=== PATIENT | male | born 1935 | race Caucasian/White ===

== ENCOUNTER 2017-11-21 09:10 | Inpatient (IN) ==
[~2017-11-21 09:10] MED LIST: Iohexol 350 MG/ML 100 ML Vial (for Cath Lab) IVCONTRAST ONE; Iohexol 350 MG/ML 50 ML Vial (for Cath Lab) IVCONTRAST ONE
[2017-11-21] MEDS ORDERED: Midazolam Inj 5 MG/ML 1 ML Vial ONE (10:54)
[2017-11-21] MEDS ORDERED: Midazolam Inj 5 MG/ML 1 ML Vial IV.PUSH PRN (10:58)
[2017-11-21] MEDS ORDERED: Lidocaine 2% Inj 50 ML Vial ONE (11:25)
[2017-11-21] MEDS ORDERED: Mupirocin 2% Nasal Oint Topical Syringe EACH NARE SCH (11:30)
[2017-11-21] MEDS ORDERED: Chlorhexidine Gluconate 2% 1 Pack (2 Cloths) TOPICAL SCH (11:30)
[2017-11-21] MEDS ORDERED: Aspirin 325 MG Tablet PO SCH (11:30)
[2017-11-21] MEDS ORDERED: Chlorhexidine Gluconate 2% 1 Pack (2 Cloths) TOPICAL ONE (11:34)
[2017-11-21] MEDS ORDERED: Metoprolol Tartrate 25 MG Tablet PO ONE (11:34)
[2017-11-21 11:50] LABS: Baso # (Auto) 0.1 th/mm3 (0.0-0.2); Baso % (Auto) 0.6 % (0.0-2.0); Eos # (Auto) 0.2 th/mm3 (0.0-0.4); Eos % (Auto) 1.3 % (0.0-4.0); Hematocrit 41.6 % (39.0-51.0); Hemoglobin 14.1 gm/dL (13.0-17.0); Lymph # (Auto) 1.4 th/mm3 (1.0-4.8); Lymph % (Auto) 12.7 % (9.0-44.0); Mean Corpuscular HGB Conc 33.8 % (32.0-36.0); Mean Corpuscular Volume 91.6 fL (80.0-100.0); Mean Platelet Volume 7.3 fL (7.0-11.0); Mono # (Auto) 1.2 th/mm3 (0.0-0.9); Mono % (Auto) 10.5 % (0.0-8.0); Neut # (Auto) 8.5 th/mm3 (1.8-7.7); Neut % (Auto) 74.9 % (16.0-70.0); Platelet Count 331 th/mm3 (150-450); Red Blood Count 4.55 mil/mm3 (4.50-5.90); White Blood Count 11.4 th/mm3 (4.0-11.0)
[2017-11-21] MEDS ORDERED: ceFAZolin 2 GM/NS 100 ML IV; Q8H IV.SIG SCH ×2 (12:00)
[2017-11-21] MEDS ORDERED: Sodium Chlor 0.9% Inj 500 ML IV.SIG SCH (12:00)
[2017-11-21 12:03] LABS: Activated Partial Thrombo Time 26.2 sec (24.3-30.1); INR 1.1 Ratio; Prothrombin Time 11.2 sec (9.8-11.6)
[2017-11-21 12:06] LABS: Calcium 9.1 mg/dL (8.5-10.1); Carbon Dioxide 31.6 meq/L (21.0-32.0)
[2017-11-21 13:14] LABS: Eosinophils 4 % (0-4); Lymphocytes 6 % (9-44); Monocytes 10 % (0-8); Myelocytes 1 % (0-0); Platelet Estimate Normal (Normal); Platelet Morphology Normal (Normal)
[2017-11-21] MEDS ORDERED: Protamine Sulfate Inj 50 MG/5 ML Vial ONE (13:36)
[2017-11-21] MEDS ORDERED: Heparin 10,000 UNITS/10 ML Vial (for IV use) ONE (13:36)
--- NOTE | 2017-11-21 13:38 | P.PCN ---
Date of procedure: 11/21/17 Pre-op diagnosis: Severe aortic stenosis Procedure: Procedure: Arterial Line Placement Right radial arterial line Diagnosis: Severe aortic stenosis Indications: Beat to beat hemogenic monitoring for transcatheter aortic valve replacement Consent: Obtained from the patient Description of the Procedure: The right wrist was prepped and draped sterilely. 1% lidocaine was used for local anesthesia. Direct ultrasound guidance, the radial artery was located and a needle was advanced into the artery. The vascular anatomy of the right wrist was normal. A 20 gauge, 12 cm catheter was advanced into the artery using a modified Seldinger technique. The catheter was sutured to the skin and a sterile dressing was applied. The catheter was connected to a pressure transducer and an arterial waveform was noted. There were no immediate complications noted. There was minimal EBL. I personally performed the procedure.
--- NOTE | 2017-11-21 13:39 | P.PCN ---
Date of procedure: 11/21/17 Pre-op diagnosis: Severe aortic stenosis Procedure: Central Line Procedure Note Right IJ 6 Tristanian 10 cm introducer sheath Diagnosis: Severe aortic stenosis Indications: Need for highly potent vasoactive substances for transcatheter aortic valve replacement Consent: Obtained from the patient Anesthesia: Versed 2 mg IV, 2% lidocaine locally Description of the Procedure: The patient was placed in the supine, mild- Trendelenburg position. The area was prepped and draped sterilely. A 19g needle was inserted under negative pressure aspiration and dark venous blood was obtained. A guidewire was inserted easily without resistance. A small incision was made using a #11 blade. Using a modified Seldinger technique, the dilator and 6 Tristanian catheter were advanced over the guidewire without resistance. All ports were aspirated and flushed, and had brisk blood return. The line was secured at the skin using 2-0 silk interrupted sutures. Silk was used instead of a non-suture stat lock device due to the configuration of the introducer sheath. A Biopatch and Transparent sterile dressing were applied. There were no immediate complications noted. There was minimal EBL. The patient tolerated the procedure well. Ultrasound Guidance: Ultrasound guidance was used to identify the right internal jugular vein. The vascular anatomy of the right anterior neck was normal. The vessel was cannulated under direct, real-time ultrasound visualization. After placement of the guidewire, confirmation of the guidewire in the lumen of the vessel was made using ultrasound visualization, before dilation of the tract. A Chest x-ray has been ordered. I personally performed the procedure.
--- NOTE | 2017-11-21 13:40 | P.PCN ---
Date of procedure: 11/21/17 Pre-op diagnosis: Severe aortic stenosis Procedure: Transvenous Pacer Procedure Note Diagnosis: Severe aortic stenosis Indications: Need for rapid pacing for transcatheter aortic valve replacement Consent: Obtained from the patient Anesthesia: Versed 2 mg IV Description of the Procedure: The patient was placed in the supine, mild- Trendelenburg position. The area was prepped and draped sterilely. A central introducer sheath was placed (see separate procedure note for details). Through this sheath, the 5 Fr transvenous pacer was inserted sterilely to a depth of 20 cm. The balloon was inflated and advanced in diastole with the pacer connected under real-time electrocardiographic monitoring, until capture was obtained. The balloon was deflated. The pacer was secured in position. There were no immediate complications noted. There was minimal EBL. The patient tolerated the procedure well. Depth at Capture: 34 cm mA at capture: 0.5 A Chest x-ray has been ordered. I personally performed the procedure.
--- NOTE | 2017-11-21 13:44 | P.CON ---
History of Present Illness Service: Critical Care Medicine Consult date: 11/21/17 Requesting Physician: Jossue Abdalla Reason for Consult: perioperative management of medical comorbidities Primary Care Provider: PROVIDER NON STAFF Family Provider: PROVIDER NON STAFF History of Present Illness: This is an 81-year-old male with severe aortic stenosis who presents for transcatheter aortic valve placement. He underwent transcatheter aortic valve replacement. He did require post placement dilation of the valve for moderate perivalvular leak. After post dilation, the leak was mild and likely not clinically significant. He arrives to the CVICU extubated in stable condition. Due to his arousal from anesthesia in the ICU, complete review of systems is unobtainable. Limited review systems is negative for chest pain, shortness of breath, nausea, vomiting, headache, sore throat. PMFSH - History History Provided By: Patient - Medical History Medical History: Medical History (Last Reviewed 11/21/17 @ 15:26 by Canelo Chau MD) Atrial fibrillation CAD (coronary artery disease) CKD (chronic kidney disease) COPD (chronic obstructive pulmonary disease) HTN (hypertension) Hyperlipidemia ANNA MARIE (obstructive sleep apnea) - Surgical History Surgical History: Surgical History (Last Reviewed 11/21/17 @ 15:26 by Canelo Chau MD) Hx of CABG - Family History Family History: Family History (Last Updated 11/21/17 @ 13:42 by Canelo Chau MD) Other Family history non-contributory - Tobacco History Second Hand Smoke Exposure: No Smoking Status: Never smoker - Alcohol History How Often Do You Have a Drink Containing Alcohol: Never Medications and Allergies Active Medications: Active Medications Aspirin (Aspirin) 325 mg PO [facility] Stop: 11/24/17 11:19 Chlorhexidine Gluconate (Chlorhexidine 2% Cloth) 3 pack TOPICAL [facility] Stop: 11/24/17 11:19 Sodium Chloride (Ns Inj) 500 mls @ 30 mls/hr IV.SIG .Q10H [facility] Lactated Ringer's (Lr 1000 Ml Inj) 1,000 mls @ 30 mls/hr IV.SIG .Q24H [facility] Stop: 11/22/17 21:04 Sodium Chloride (Ns Inj) 1,000 mls @ 125 mls/hr IV.CONT .Q8H [facility] Cefazolin Sodium 2,000 mg/ (Sodium Chloride) 100 mls @ 200 mls/hr IV.SIG [facility] Stop: 11/21/17 23:00 Mupirocin (Bactroban 2% Nasal Oint) 1 applicatio EACH NARE [facility] Stop: 11/24/17 11:19 Povidone Iodine (Betadine 5% Antisepsis Kit) 1 applicatio [facility] Stop: 11/24/17 11:19 Allergies Allergy/AdvReac Type Severity Reaction Status Date / Time Sulfa (Sulfonamide Allergy Rash Verified 11/12/17 09:01 Antibiotics) tetracycline Allergy Abdominal Verified 11/12/17 09:01 Pain Home Medications Medication Instructions Recorded Confirmed Type albuterol sulfate 2.5 mg INHALATION Q4H PRN 11/21/17 11/21/17 History atorvastatin [Lipitor] 20 mg PO DAILY 11/21/17 11/21/17 History clonazepam 1 mg PO TID 11/21/17 11/21/17 History clopidogrel [Plavix] 75 mg PO DAILY 11/21/17 11/21/17 History fluoxetine 20 mg PO DAILY 11/21/17 11/21/17 History furosemide 20 mg PO DAILY 11/21/17 11/21/17 History levothyroxine 50 mcg PO DAILY 11/21/17 11/21/17 History losartan 100 mg PO DAILY 11/21/17 11/21/17 History metoprolol succinate 50 mg PO DAILY 11/21/17 11/21/17 History montelukast 10 mg PO QPM 11/21/17 11/21/17 History warfarin [Coumadin] 5 mg PO DAILY 11/21/17 11/21/17 History Physical Exam Vital signs: Vital Signs 11/21/17 11:08 Pulse Rate 96 H Respiratory Rate 18 Blood Pressure 112/78 Intake & Output 11/20/17 11/21/17 11/21/17 18:59 06:59 18:59 Weight 90 kg Other: Weight On Admission 90 kg Narrative: GENERAL: Frail elderly male, lying in bed, arousing from anesthesia HEENT: Normocephalic. Atraumatic. Pupils equal, round, reactive, conjugate. Mucous membranes are moist NECK: Trachea is midline. There is no JVD. right IJ introducer sheath with transvenous pacer in place, site is clean and dry, dressing intact. CHEST: unlabored. equal chest rise. nc o2. CARDIOVASCULAR: tachycardic rate, irregularly irregular rhythm. afib. Transvenous pacer is set VVI at a backup rate of 50. not currently paced. ABDOMEN: Soft, nontender, nondistended. No guarding. MUSCULOSKELETAL: Pulses 2+. No peripheral edema. bilateral groin sites are clean and dry, no evidence of hematoma, dressing intact. distal LE pulses are Dopplerable. NEUROLOGICAL: RASS -2. Arousing from anesthesia. follows commands. moves all extremities. no focal deficits. - Urinary Catheter Management Indwelling Temp Sensing Catheter Cath placed during this visit: yes Reason for continuing: Hourly intake/output Insertion date: 11/21/17 Insertion time: 13:50 Assessment and Plan - Plan Assessment: 81-year-old male postop day 0 status post transcatheter aortic valve replacement. Admit ICU for close neurovascular checks and frequent urine output monitoring. s/p TAVR 11/21 via groin access - anticoagulation per Dr. Abdalla - frequent uop monitoring - frequent groin checks - mivf atrial fibrillation - will plan to use carefully titrated diltiazem for rate control if he remains tachycardic - restart home meds in AM - may need to resort to amiodarone for a very short course if not appropriately rate controlled. CAD - s/p recent PCI - plavix, ASA CKD, unknown stage - mivf - AM BMP - watch uop closely Hypertension - goal sbp < 180 - add back antihypertensives prn Hyperlipidemia - restart home statin COPD ANNA MARIE - room air spo2 89% this AM pre-op - nebs - aggressive pulmonary toilet - OOB after flat time SCDs advance diet after flat time. Critical care medicine will continue to follow while patient is in CVICU.
--- NOTE | 2017-11-21 13:57 | P.HPCA ---
History of Present Illness Service: Cardiology Primary Care Physician: PROVIDER NON STAFF Chief Complaint: Severe aortic valve stenosis History of Present Illness: This 81-year-old male with history of coronary artery disease status post prior coronary bypass surgery, atrial fibrillation, chronic kidney disease, COPD who presents with worsening symptoms of shortness of breath. Transthoracic echocardiogram revealed severe aortic valve stenosis. Patient was evaluated by cardiothoracic surgery and felt to be answering calculated to be high risk for surgical aortic valve replacement. Patient was referred for consideration of transcatheter valve replacement. He is here today for elective procedure - Diagnosis (1) Aortic stenosis Inpatient Certification: I certify that the inpatient services were ordered in accordance with Medicare regulations governing the order. This includes certification that hospital inpatient services are reasonable and necessary and in the case of services not specified as inpatient-only under 42 CFR 419.22(n), that they are appropriately provided as inpatient services in accordance to with the 2-midnight benchmark under 43 CFR 412.3(e) Estimated Total Length of Stay (Days): 2 Plans for Post Hospital Care: Home Review of Systems All other systems reviewed negative except as stated in HPI [facility] - History History Provided By: Patient - Medical History Medical History: Medical History (Last Updated 11/21/17 @ 13:52 by Jossue Abdalla MD) Aortic stenosis Atrial fibrillation CAD (coronary artery disease) CKD (chronic kidney disease) COPD (chronic obstructive pulmonary disease) HTN (hypertension) Hyperlipidemia ANNA MARIE (obstructive sleep apnea) - Surgical History Surgical History: Surgical History (Last Updated 11/21/17 @ 13:52 by Jossue Abdalla MD) Hx of CABG - Family History Family History: Family History (Last Updated 11/21/17 @ 13:42 by Canelo Chau MD) Other Family history non-contributory - Tobacco History Second Hand Smoke Exposure: No Smoking Status: Never smoker - Alcohol History How Often Do You Have a Drink Containing Alcohol: Never Medications and Allergies Active Medications: Active Medications Aspirin (Aspirin) 325 mg PO [facility] Stop: 11/24/17 11:19 Chlorhexidine Gluconate (Chlorhexidine 2% Cloth) 3 pack TOPICAL [facility] Stop: 11/24/17 11:19 Sodium Chloride (Ns Inj) 500 mls @ 30 mls/hr IV.SIG .Q10H [facility] Lactated Ringer's (Lr 1000 Ml Inj) 1,000 mls @ 30 mls/hr IV.SIG .Q24H [facility] Stop: 11/22/17 21:04 Sodium Chloride (Ns Inj) 1,000 mls @ 125 mls/hr IV.CONT .Q8H [facility] Cefazolin Sodium 2,000 mg/ (Sodium Chloride) 100 mls @ 200 mls/hr IV.SIG [facility] Stop: 11/21/17 23:00 Mupirocin (Bactroban 2% Nasal Oint) 1 applicatio EACH NARE [facility] Stop: 11/24/17 11:19 Povidone Iodine (Betadine 5% Antisepsis Kit) 1 applicatio TOPICAL [facility] Stop: 11/24/17 11:19 Allergies Allergy/AdvReac Type Severity Reaction Status Date / Time Sulfa (Sulfonamide Allergy Rash Verified 11/12/17 09:01 Antibiotics) tetracycline Allergy Abdominal Verified 11/12/17 09:01 Pain Home Medications Medication Instructions Recorded Confirmed Type albuterol sulfate 2.5 mg INHALATION Q4H PRN 11/21/17 11/21/17 History atorvastatin [Lipitor] 20 mg PO DAILY 11/21/17 11/21/17 History clonazepam 1 mg PO TID 11/21/17 11/21/17 History clopidogrel [Plavix] 75 mg PO DAILY 11/21/17 11/21/17 History fluoxetine 20 mg PO DAILY 11/21/17 11/21/17 History furosemide 20 mg PO DAILY 11/21/17 11/21/17 History levothyroxine 50 mcg PO DAILY 11/21/17 11/21/17 History losartan 100 mg PO DAILY 11/21/17 11/21/17 History metoprolol succinate 50 mg PO DAILY 11/21/17 11/21/17 History montelukast 10 mg PO QPM 11/21/17 11/21/17 History warfarin [Coumadin] 5 mg PO DAILY 11/21/17 11/21/17 History Exam Vital signs: Vital Signs 11/21/17 11:08 Pulse Rate 96 H Respiratory Rate 18 Blood Pressure 112/78 Intake & Output 11/20/17 11/21/17 11/21/17 18:59 06:59 18:59 Weight 90 kg Other: Weight On Admission 90 kg - Constitutional no acute distress - Routine HEENT Exam Eye: Present: EOMI, PERRL - Routine Neck Exam Absent: JVD - Routine Respiratory Exam Present: CTA bilaterally - Routine Cardiovascular Exam Present: RRR. Absent: murmur - Routine Abdominal Exam Present: soft, normoactive bowel sounds - Routine Extremities Exam Absent: cyanosis, clubbing, edema Results 11/21/17 10:40 11/21/17 10:40 Coagulation 11/21/17 Range/Units 10:40 PT 11.2 D (9.8-11.6) sec APTT 26.2 (24.3-30.1) sec CBC 11/21/17 Range/Units 10:40 WBC 11.4 H (4.0-11.0) th/mm3 RBC 4.55 (4.50-5.90) mil/mm3 Hgb 14.1 (13.0-17.0) gm/dL Hct 41.6 (39.0-51.0) % Plt Count 331 (150-450) th/mm3 Neut # (Auto) 8.5 H (1.8-7.7) th/mm3 Lymph # (Auto) 1.4 (1.0-4.8) th/mm3 Gaines # (Auto) 1.2 H (0.0-0.9) th/mm3 Eos # (Auto) 0.2 (0.0-0.4) th/mm3 Baso # (Auto) 0.1 (0.0-0.2) th/mm3 Comprehensive Metabolic Panel 11/21/17 Range/Units 10:40 Sodium 139 (136-145) meq/L Potassium 4.0 (3.5-5.1) meq/L Chloride 100 (98-107) meq/L Carbon Dioxide 31.6 (21.0-32.0) meq/L BUN 21 H (7-18) mg/dL Creatinine 0.91 (0.60-1.30) mg/dL Calcium 9.1 (8.5-10.1) mg/dL Intake and Output 11/20/17 11/21/17 11/21/17 22:59 06:59 14:59 Other: Weight 90 kg Weight On Admission 90 kg Patient Weight 11/22/17 06:59 Weight 90 kg Caprini VTE Risk Assessment Caprini VTE Risk Assessment: No/Low Risk (score <= 1) Caprini Risk Assessment Model: Point Value = 1 Point Value = 2 Point Value = 3 Point Value = 5 Age 41-60 Minor surgery BMI > 25 kg/m2 Swollen legs Varicose veins or History of unexplained or recurrent spontaneous Oral contraceptives or hormone replacement Sepsis (< 1 month) Serious lung disease, including pneumonia (< 1 month) Abnormal pulmonary function Acute myocardial infarction Congestive heart failure (< 1 month) History of inflammatory bowel disease Medical patient at bed rest Age 61-74 Arthroscopic surgery Major open surgery (> 45 min) Laparoscopic surgery (> 45 min) Malignancy Confined to bed (> 72 hours) Immobilizing plaster cast Central venous access Age >= 75 History of VTE Family history of VTE Factor V Leiden Prothrombin [id number] Lupus anticoagulant Anticardiolipin antibodies Elevated serum homocysteine Heparin-induced thrombocytopenia Other congenital or acquired thrombophilia Stroke (< 1 month) Elective arthroplasty Hip, pelvis, or leg fracture Acute spinal cord injury (< 1 month) Prophylaxis Regimen: Total Risk Factor Score Risk Level Prophylaxis Regimen 0-1 Low Early ambulation 2 Moderate Order ONE of the following: *Sequential Compression Device (SCD) *Heparin 5000 units SQ BID 3-4 Higher Order ONE of the following medications: *Heparin 5000 units SQ TID *Enoxaparin/Lovenox 40 mg SQ daily (WT < 150 kg, CrCl > 30 mL/min) *Enoxaparin/Lovenox 30 mg SQ daily (WT < 150 kg, CrCl > 10-29 mL/min) *Enoxaparin/Lovenox 30 mg SQ BID (WT < 150 kg, CrCl > 30 mL/min) AND/OR *Sequential Compression Device (SCD) 5 or more Highest Order ONE of the following medications: *Heparin 5000 units SQ TID (Preferred with Epidurals) *Enoxaparin/Lovenox 40 mg SQ daily (WT < 150 kg, CrCl > 30 mL/min) *Enoxaparin/Lovenox 30 mg SQ daily (WT < 150 kg, CrCl > 10-29 mL/min) *Enoxaparin/Lovenox 30 mg SQ BID (WT < 150 kg, CrCl > 30 mL/min) AND *Sequential Compression Device (SCD) Assessment and Plan - Assessment (1) Aortic stenosis Code(s): I35.0 - Nonrheumatic aortic (valve) stenosis Status: Acute - Plan This 81-year-old gentleman with history of atrial fibrillation, hypertension, coronary disease with recent percutaneous coronary intervention and prior bypass who is considered high risk for surgical aortic valve replacement referred for consideration transcatheter aortic valve replacement next signs preoperative workup; STS score 7.6% [place] [employer] functional class III/class IV symptoms Data body mass index 28 Frailty score 3/4 Electrocardiogram atrial fibrillation nonspecific T-wave abnormality [place] pulmonary function test from October 23, 2017 shows FEV1 of 2.06 consistent with no significant obstructive ventilatory defect present echocardiogram from September 03, 2017 shows a jet velocity 4.09 m/s, mean gradient 46 mmHg mercury, aortic valve area 0.5 cm, ejection fraction 55%, aortic insufficiency mild, mitral regurgitation moderate, tricuspid regurgitation moderate His cardiac catheterization September 12, 2017 shows severe left main, proximal left anterior descending, and right coronary arteries with 3 out of 4 patent grafts. Computed tomographic analysis on October 09, 2017 reveals short annulus diameter 26.9 mm, long in his diameter 31.7 mm, perimeter 92 mm, sinus of Valsalva diameter 39.6 mm, sinotubular junction 34.0 mm, left coronary height 18.9 mm, right coronary height 19.7 mm, implant angle right anterior oblique 4, caudal 7 , iliac arteries show minimal luminal diameter on the right side of 10.3 mm in the left side of 8.4 mm After discussion with the patient and family, patient is agreeable to proceed forward with trans-catheter aortic valve replacement. We will plan for delivery of a Medtronic evolution are 34 mm bioprosthetic valve from her right common femoral arterial approach. H&P: Quality - VTE Deep Vein Thrombosis/Pulmonary Embolism Present on Admission: No
[2017-11-21] MEDS ORDERED: Glycopyrrolate Inj 1 MG/5 ML Syringe IV.PUSH ONE (14:14)
[2017-11-21] MEDS ORDERED: Phenylephrine/NS 1000 MCG/10ML Syringe IV.PUSH ONE (14:14)
[2017-11-21] MEDS ORDERED: Neostigmine Inj 5 MG/5 ML Syringe IV.PUSH ONE (14:14)
[2017-11-21] MEDS ORDERED: Normosol-R pH 7.4 Inj 1,000 ML IV.CONT ONE (14:14)
[2017-11-21] MEDS ORDERED: Esmolol Bolus Inj 100 MG/10 ML Vial IV.PUSH ONE (14:14)
[2017-11-21] MEDS ORDERED: Lidocaine PF 1% Inj 5 ML Syringe INFILTRATN ONE (14:14)
[2017-11-21] MEDS ORDERED: Metoprolol Inj 5 MG/5 ML Vial IV.PUSH ONE (14:14)
[2017-11-21] MEDS ORDERED: Iohexol 300 MG/ML 50 ML Vial (for Rad Diag) IVCONTRAST ONE ×4 (15:28→16:00)
[2017-11-21] MEDS ORDERED: Potassium Chloride 25 MEQ Effervescent Tablet PO PRN (15:32)
[2017-11-21] MEDS ORDERED: Sodium Phosphate Inj 30 MMOL in Sodium Chlor 0.9% Inj 250 ML IV.SIG PRN (15:32)
[2017-11-21] MEDS ORDERED: Magnesium Oxide 400 MG Tablet PO PRN (15:32)
[2017-11-21] MEDS ORDERED: Potassium Chlor 40 mEq Premix 40 MEQ/100 ML PIGGYBACK IV.SIG PRN ×2 (15:32)
[2017-11-21] MEDS ORDERED: Potassium Chlor 20 mEq Premix 20 MEQ/100 ML PIGGYBACK IV.SIG PRN ×2 (15:32)
[2017-11-21] MEDS ORDERED: Potassium Phosphate 500 MG Soluble Tablet PO PRN ×2 (15:32)
[2017-11-21] MEDS ORDERED: Magnesium Sulfate Inj 4 GM in Sodium Chlor 0.9% Inj 92 ML IV.SIG PRN (15:32)
[2017-11-21] MEDS ORDERED: Potassium Phosphate Inj 30 MMOL in Sodium Chlor 0.9% Inj 250 ML IV.SIG PRN (15:32)
[2017-11-21] MEDS ORDERED: Magnesium Sulfate Inj 2 GM in Sodium Chlor 0.9% Inj 96 ML IV.SIG PRN (15:32)
[2017-11-21] MEDS ORDERED: dilTIAZem 30 MG Tablet PO PRN (15:33)
--- NOTE | 2017-11-21 15:38 | P.PCN ---
Date of procedure: 11/21/17 Pre-op diagnosis: Severe aortic stenosis Procedure: Procedure: Transesophageal Echocardiography Diagnosis: Severe aortic stenosis Indications: Perioperative planning for transcatheter aortic valve replacement Consent: Obtained Anesthesia: General endotracheal anesthesia Description of the Procedure: The patient was sedated and mechanically ventilated. The echo probe was inserted easily and without resistance. At the conclusion of the procedure, the echo probe was removed. Please see detailed echocardiogram report for formal findings. Preliminary Findings (not confirmed): Pre-procedure: 1) normal left ventricular function 2) left ventricular hypertrophy 3) [id number] RV dysfunction 4) severe aortic stenosis 5) mild aortic regurgitation 6) mild mitral regurgitation 7) trace tricuspid regurgitation 8) no evidence of intra-atrial shunting by color flow Doppler 9) no pericardial effusion Post-procedure: 1) s/p successful placement of transcatheter aortic valve 2) no evidence of bioprosthetic valve stenosis 3) [id number] perivalvular leak 4) moderate mitral regurgitation 5) no pericardial effusion These findings were discussed with the entire structural heart team and a decision by the team was made to post-dilate the TAVR. Post-dilation: 1) no evidence of bioprosthetic valve stenosis 2) mild perivalvular leak which appears significantly improved by color flow Doppler and pressure half-time. 3) no pericardial effusion The patient tolerated the procedure well with no hemodynamic instability. There were no immediate complications noted. There was minimal EBL. I personally performed the procedure.
--- NOTE | 2017-11-21 15:42 | P.OP ---
Date of procedure: 11/21/17 Anesthesia: GETA Surgeon: Terra Hatrmann MD Operation and Findings: PREOPERATIVE DIAGNOSIS: 1. Severe Symptomatic Aortic stenosis. 2. CHF 3. Moderate aortic Insufficiency 4. CAD - s/p CABG POSTOPERATIVE DIAGNOSIS: Same OPERATION PERFORMED: 1. Transcatheter Aortic Valve Replacement (TAVR) with a Medtronic 34 mm Evolut R Tissue Valve. 2. Balloon Aortic Valvuloplasty 3. Aortogram. 4. Percutaneous Right femoral Vein Access and Bilateral Common Femoral Artery Access 5. Perclose (x2) closure of left Common Femoral artery. 6. Vascade closure of right Common femoral Artery and Vein. 7. Fluoroscopy SURGEON: Terra Hartmann MD CO-SURGEON: Jossue Abdalla MD FUR FINISHER SEAMSTRESS SURGEON: Jalyn Moore MD FABRICATION INSPECTOR: CHRISTY Lucas MD ANESTHESIA: GETA PROCEDURE: The risks, benefits, complications, treatment options, and expected outcomes were discussed with the patient. The possibilities of reaction to medication, pulmonary aspiration, perforation of viscus, bleeding, recurrent infection, the need for additional procedures, failure to diagnose a condition, and creating a complication requiring transfusion or operation were discussed with the patient. The patient concurred with the proposed plan, giving informed consent. The site of surgery properly noted/marked. The patient was taken to the hybrid operating room and the procedure verified as Transcatheter Aortic Valve Replacement. A Time Out was held and the above information confirmed. Standard monitoring lines and Omalley catheter were placed. General anesthesia was induced. The patient was prepped and draped in a sterile fashion. Initially, the right femoral arterial and venous access was acquired using a Seldinger percutaneous technique. The details of this procedure were dictated under separate note by cardiology. Once a pigtail was positioned in the aortic annulus and a temporary transvenous pacemaker wire was placed in the right ventricular apex and tested, the left femoral artery was accessed using a needle followed by a guidewire under fluoroscopic guidance. The patient was heparinized and two Perclose devices deployed at a 45 degree angle for later closure. Serial dilators were used to dilate the left femoral artery to 16 English caliber. The Medtronic sheath was then inserted into the external iliac artery up to the distal abdominal aorta. Arch aortography was performed to define the implant view. Balloon aortic valvuloplasty was performed using a 26 True balloon. A 34 mm Medtronic Evolut R transcatheter aortic valve was then positioned in the annulus and deployed with the patient being rapidly paced. Following deployment, the valve apparatus was withdrawn and arch aortography and ÁLVARO were performed to assess the valve. The valve had mild perivalvular leak. The valve was then postdilated using a 28 true balloon resulting in residual trace paravalvular leak. Gradients were then measured and the sheath was removed with securing the Perclose sutures for hemostasis. Protamine was administered. The right arterial and Venous access sites were closed using the Vascade device. Sterile dressings were placed. At the end of the operation, all sponge, instruments, and needle counts were correct. The patient was transferred to the CVICU in stable condition. Findings: Trace PVL Implants: 34 Evolut R Medtronic Valve Complications: None Disposition: CVICU in stable condition
[2017-11-21] MEDS ORDERED: Atropine Inj 1 MG/ML Vial IV.PUSH PRN (15:46)
[2017-11-21] MEDS ORDERED: Benzocaine/Menthol 15 MG/3.6 MG SF Lozenge BUCCAL PRN (15:46)
[2017-11-21] MEDS ORDERED: Morphine Sulfate Inj 2 MG/ML Vial IV.PUSH PRN (15:46)
[2017-11-21] MEDS ORDERED: Acetaminophen 325 MG Tablet PO PRN (15:46)
[2017-11-21] MEDS ORDERED: fentaNYL Citrate Inj 100 MCG/2 ML Ampul ONE (16:04)
--- NOTE | 2017-11-21 16:10 | ECHRPT ---
Indication: CONCLUSIONS Normal left ventricular size. Mild concentric left ventricular hypertrophy. The left ventricular systolic function is normal with an estimated ejection fraction in the range of 55-60%. Severe [place] aortic valve stenosis Status post transcatheter aortic valve replacement Mild perivalvular leak aortic insufficiency. BP: / HR: Rhythm: Technical Quality: Medications Complications There were no complications prior to, during or in recovery from the transesophag eal echocardiogram.. Proc. Components FINDINGS LEFT VENTRICLE Normal left ventricular size. Mild concentric left ventricular hypertrophy. The left ventricular systolic function is normal with an estimated ejection fraction in the range of 55-60%. RIGHT VENTRICLE The right ventricular size is normal. The right ventricular systoilc function is mildly decreased. MITRAL VALVE Mild mitral valve regurgitation. AORTIC VALVE Severe [place] aortic valve stenosis Status post transcatheter aortic valve replacement Mild perivalvular leak aortic insufficiency Jossue Abdalla MD, FACC (Electronically Signed) Final Date:21 November 2017 16:09
[2017-11-21] MEDS: Sod Chloride 0.9% Inj 1,000 ML IV.CONT SCH (16:49)
[2017-11-21 17:17] LABS: Hematocrit 37.7 % (39.0-51.0); Hemoglobin 12.7 gm/dL (13.0-17.0); Mean Corpuscular HGB Conc 33.7 % (32.0-36.0); Mean Corpuscular Hemoglobin 31.1 pg (27.0-34.0); Mean Corpuscular Volume 92.1 fL (80.0-100.0); Platelet Count 250 th/mm3 (150-450); Red Cell Distribution Width 17.5 % (11.6-17.2); White Blood Count 14.4 th/mm3 (4.0-11.0)
[2017-11-21 17:32] LABS: Albumin 2.9 g/dL (3.4-5.0); Anion Gap 8 meq/L (5-15); Aspartate Aminotransferase 28 U/L (15-37); Blood Urea Nitrogen 20 mg/dL (7-18); Calcium 8.4 mg/dL (8.5-10.1); Carbon Dioxide 29.7 meq/L (21.0-32.0); Chloride 101 meq/L (98-107); Glomerular Filtration Rate Greater Than 89 mL/min (>89); Glucose,Random 92 mg/dL (74-106); Potassium 4.3 meq/L (3.5-5.1); Sodium 139 meq/L (136-145)
[2017-11-21 17:33] LABS: Alanine Aminotransferase 17 U/L (12-78)
[2017-11-21 17:36] LABS: Alkaline Phosphatase 68 U/L (45-117); Total Protein 6.3 g/dL (6.4-8.2)
[2017-11-21] MEDS ORDERED: hydrALAZINE 50 MG Tablet PO PRN (19:15)
--- NOTE | 2017-11-21 19:16 | MA ---
cc: Jossue Abdalla MD DATE: 11/21/2017 PROCEDURE: Transcatheter aortic valve replacement. PHOTOENGRAVING PROOFER APPRENTICE: Jossue Abdalla MD, [facility] SECONDARY INNER TUBE CUTTER: Jalyn Moore MD PRIMARY SURGEON: Terra Hartmann MD PROCEDURES PERFORMED: 1. Fluoroscopy with interpretation. 2. Transcatheter aortic valve replacement with a 34 mm Evolut R bioprosthetic valve. 3. Ascending aortography. 4. Left heart catheterization. 5. Transvenous temporary pacemaker placement. 6. Transesophageal echocardiogram. METHOD: Risks, benefits and alternatives were discussed with the patient. The patient understood and consented to the procedure. The patient was brought into the operating room and placed on the operating table. The bilateral groins were prepped and draped. The right groin was anesthetized with 2% lidocaine. The right common femoral artery was cannulated and a 5 Swazi 11 cm sheath was placed. The right femoral vein was accessed and a 5 Swazi 11 cm sheath was placed. The left common femoral artery was cannulated and an 8 Swazi 11 cm sheath was placed. TRANSVENOUS TEMPORARY PACEMAKER PLACEMENT: The right internal jugular vein was accessed and a transvenous pacemaker was placed and used for rapid pacing through the procedure. TRANSESOPHAGEAL ECHOCARDIOGRAM: Please see detailed separate report. ASCENDING AORTOGRAPHY: Ascending aortography was performed in a right anterior oblique caudal view with good visualization of all 3 leaflets in parallel. Ascending aorta was not significantly dilated. LEFT HEART CATHETERIZATION: A 5 Swazi AL1 catheter was advanced to the ascending aorta. A 0.035 inch Amplatz straight tip wire was then advanced across the aortic valve with some great difficulty. The AL catheter was advanced into the left ventricle. The wire was removed. A 0.035 inch 260 cm J wire was then advanced to the apex and the AL1 catheter removed. A 5 Swazi pigtail catheter was advanced to the left ventricular apex and a Medtronic Confida 0.035 inch 260 cm wire was then advanced to the left ventricular apex and the pigtail catheter removed. There was quite a bit of significant heavily calcific aortic arch, thoracic descending aortic and iliac arteries to navigate. TRANSCATHETER AORTIC VALVE REPLACEMENT: A 16 Swazi Medtronic 34 mm Evolut R bioprosthetic valve was then prepped and advanced through the sheath, which is incorporated in the valve itself over the Confida wire through the left iliac system. Again, there was some difficulty navigating the tortuosity. We advanced the device across the aortic valve with visualization on fluoroscopy and ascending aortography. The device then was slowly deployed under rapid pacing and appropriate position was confirmed. The device was then fully released. Appropriate position was confirmed by transesophageal echocardiogram, which showed a mild to moderate paravalvular leak. At this point, we decided to proceed with post-valve dilatation. A 16 Swazi sheath was then exchanged to the left common femoral artery and a 28 mm post-dilatation balloon was then advanced down into the bioprosthetic valve and outflow of the left ventricle. The balloon was then fully deployed under rapid pacing. Repeat transesophageal echocardiogram showed significant reduction in the paravalvular leak with no significant gradient present. At this point, the wires were removed. The left 16 Swazi sheath was removed with 2 Perclose devices placed and the right femoral artery and vein sheaths were removed with two 5 Swazi VASCADE devices deployed with good hemostasis. Heparin was administered throughout the entire procedure to maintain appropriate anticoagulation. The patient has a history of atrial fibrillation. POST VALVE DEPLOYMENT INTRAOPERATIVE TRANSESOPHAGEAL ECHOCARDIOGRAM FINDINGS: 1. Post aortic valve area 3.3 cm2. 2. Post implant mean aortic valve gradient 5 mmHg. 3. Post implant peak velocity 1.62 meters per second. 4. Paravalvular aortic insufficiency graded at mild. CONCLUSIONS: 1. Successful transcatheter aortic valve replacement with a Medtronic 34 mm Evolut R bioprosthetic valve. 2. Successful aortic valvuloplasty post dilatation. PLAN: We will monitor the patient closely for any post procedure complications. I think symptomatically this should show significant improvement. We will have to monitor for any bleeding in addition to potential for stroke given his heavily calcified aorta and difficulty transitioning through to the aortic valve itself. MD ABRAM Tate/trinh , 04:32 PM , 04:45 PM
[2017-11-22 05:23] LABS: Hematocrit 37.6 % (39.0-51.0); Hemoglobin 12.6 gm/dL (13.0-17.0); Mean Corpuscular HGB Conc 33.4 % (32.0-36.0); Mean Corpuscular Hemoglobin 31.2 pg (27.0-34.0); Mean Corpuscular Volume 93.5 fL (80.0-100.0); Mean Platelet Volume 7.1 fL (7.0-11.0); Platelet Count 248 th/mm3 (150-450); Red Blood Count 4.03 mil/mm3 (4.50-5.90); Red Cell Distribution Width 17.3 % (11.6-17.2); White Blood Count 11.1 th/mm3 (4.0-11.0)
[2017-11-22 05:53] LABS: Calcium 8.2 mg/dL (8.5-10.1); Carbon Dioxide 26.6 meq/L (21.0-32.0); Potassium 4.7 meq/L (3.5-5.1)
--- NOTE | 2017-11-22 07:49 | P.PNCV ---
- Note Subjective/Hospital Course: Clinically and hemodynamic is stable Denies any pain Remains in atrial fibrillation as per his baseline rhythm No pacing required Discharge disposition Objective: Vital Signs - 24 hr 11/21/17 11:08 11/21/17 15:55 11/21/17 17:00 Temperature 98.5 F Pulse Rate 96 H 119 H 104 H Respiratory Rate 18 14 Blood Pressure 112/78 142/62 H Pulse Oximetry 95 11/21/17 18:00 11/21/17 20:00 11/21/17 22:15 Temperature 98.0 F Pulse Rate 95 H 112 H Respiratory Rate 14 20 Blood Pressure 148/53 H 138/54 L Pulse Oximetry 95 97 97 11/22/17 00:00 11/22/17 00:12 11/22/17 03:30 Temperature Pulse Rate 98 H 102 H 97 H Respiratory Rate 16 14 14 Blood Pressure 123/40 L Pulse Oximetry 98 11/22/17 04:00 11/22/17 07:00 Temperature Pulse Rate 118 H 100 H Respiratory Rate 18 Blood Pressure 155/60 H Pulse Oximetry 97 Labs: Laboratory Results - last 12 hr 11/22/17 11/22/17 05:01 05:01 WBC 11.1 H RBC 4.03 L Hgb 12.6 L Hct 37.6 L MCV 93.5 MCH 31.2 MCHC 33.4 RDW 17.3 H Plt Count 248 MPV 7.1 Sodium 140 Potassium 4.7 Chloride 103 Carbon Dioxide 26.6 Anion Gap 10 BUN 22 H Creatinine 0.83 Estimated GFR 88 L Random Glucose 106 Calcium 8.2 L Result Diagrams: 11/22/17 05:01 11/22/17 05:01
[2017-11-22] MEDS: Montelukast 10 MG Tablet PO SCH ×2 (08:05→17:29)
[2017-11-22] MEDS: clonazePAM 1 MG Tablet PO SCH ×4 (08:05→17:26)
[2017-11-22] MEDS: Sod Chloride 0.9% Inj 1,000 ML IV.CONT SCH ×3 (08:06→20:25)
[2017-11-22] MEDS: FLUoxetine 20 MG Capsule PO SCH (08:49)
[2017-11-22] MEDS: Ferrous Sulfate 325 MG Tablet PO SCH (08:49)
[2017-11-22] MEDS: Levothyroxine 50 MCG Tablet PO SCH (08:49)
[2017-11-22] MEDS ORDERED: Furosemide 20 MG Tablet PO SCH (09:00)
--- NOTE | 2017-11-22 09:06 | P.DS ---
<Hilario Arambula - Last Filed: 11/22/17 09:03> Date of admission: 11/21/17 09:10 Primary care physician: PROVIDER NON STAFF Brief History from admission: This 81-year-old male with history of coronary artery disease status post prior coronary bypass surgery, atrial fibrillation, chronic kidney disease, COPD who presents with worsening symptoms of shortness of breath. Transthoracic echocardiogram revealed severe aortic valve stenosis. Patient was evaluated by cardiothoracic surgery and felt to be answering calculated to be high risk for surgical aortic valve replacement. Patient was referred for consideration of transcatheter valve replacement. He is here today for elective procedure Patient update on day of discharge: Patient has atrial fibrillation at baseline and is on warfarin for anticoagulation and metoprolol for rate control. In A. fib currently this morning. Asymptomatic with no chest pain, shortness breath, palpitations. He follows with Dr. Harvey as outpatient for cardiology. No issues with groin access site. Limited echo today. DS: Diagnosis - Discharge Diagnosis (1) Aortic stenosis Status: Acute DS: Summary Hospital Course: Patient underwent uncomplicated TAVR on 11/21 with essentially unremarkable postoperative course. - Time Spent with Patient Total time spent providing and/or coordinating discharge services: - Quality: VTE Deep Vein Thrombosis/Pulmonary Embolism Present on Admission: No Exam Vital signs: Vital Signs 11/21/17 11:08 11/21/17 15:55 11/21/17 17:00 Temperature 98.5 F Pulse Rate 96 H 119 H 104 H Respiratory Rate 18 14 Blood Pressure 112/78 142/62 H Pulse Oximetry 95 11/21/17 18:00 11/21/17 20:00 11/21/17 22:15 Temperature 98.0 F Pulse Rate 95 H 112 H Respiratory Rate 14 20 Blood Pressure 148/53 H 138/54 L Pulse Oximetry 95 97 97 11/22/17 00:00 11/22/17 00:12 11/22/17 03:30 Temperature Pulse Rate 98 H 102 H 97 H Respiratory Rate 16 14 14 Blood Pressure 123/40 L Pulse Oximetry 98 11/22/17 04:00 11/22/17 07:00 11/22/17 08:40 Temperature Pulse Rate 118 H 100 H 106 H Respiratory Rate 18 18 Blood Pressure 155/60 H Pulse Oximetry 97 95 Intake & Output 11/21/17 11/22/17 11/22/17 18:59 06:59 18:59 Intake Total 1000 / 1000 1444 / 1444 0 / 0 Output Total 350 / 350 220 / 220 Balance 650 / 650 1224 / 1224 0 / 0 Weight 198 lb 6.656 oz 201 lb 11.567 oz Intake: IV 724 / 724 0 / 0 NS Inj 1,000 ML @ 125 mls/hr IV 724 / 724 0 / 0 .CONT .Q8H [facility] Rx#:[id number] Oral 720 / 720 Anesthesia Amount 1000 / 1000 Output: Urine 50 / 50 Estimated Blood Loss 50 / 50 Urine Amount (Catheter) 300 / 300 170 / 170 Indwelling Temp Sensing 300 / 300 170 / 170 Catheter Other: # Bowel Movements 0 Weight On Admission 198 lb 6.656 oz Narrative: GENERAL: Well-developed well-nourished. In no acute distress. NECK: No carotid bruits. No JVD. CARDIOVASCULAR: Irregular rate and rhythm. No murmur appreciated. RESPIRATORY: No accessory muscle use. Clear to auscultation. Breath sounds equal bilaterally. MUSCULOSKELETAL: No clubbing or cyanosis. No edema. NEUROLOGICAL: Awake and alert. Normal speech. SKIN: Bilateral groins with minimal bruising, no swelling or tenderness, and pulses intact Results Procedures completed during hospitalization: TAVR 11/21/17 Labs on day of discharge: Labs from last 24 hours 11/22/17 11/22/17 11/21/17 05:01 05:01 16:40 WBC 11.1 H RBC 4.03 L Hgb 12.6 L Hct 37.6 L MCV 93.5 MCH 31.2 MCHC 33.4 RDW 17.3 H Plt Count 248 MPV 7.1 Prelim Diff (Auto) Neut % (Auto) Lymph % (Auto) [place] % (Auto) Eos % (Auto) Baso % (Auto) Neut # (Auto) Lymph # (Auto) [place] # (Auto) Eos # (Auto) Baso # (Auto) WBC Differential Seg Neuts % (Manual) Band Neuts % (Manual) Lymphocytes % (Manual) Monocytes % (Manual) Eosinophils % (Manual) Basophils % (Manual) Myelocytes % (Man) Abs Neuts (Manual) Differential Comment Platelet Estimate Platelet Morphology PT INR APTT Sodium 140 139 Potassium 4.7 4.3 Chloride 103 101 Carbon Dioxide 26.6 29.7 Anion Gap 10 8 BUN 22 H 20 H Creatinine 0.83 0.78 Estimated GFR 88 L Greater than 89 Random Glucose 106 92 Calcium 8.2 L 8.4 L Total Bilirubin 1.6 H AST 28 ALT 17 Alkaline Phosphatase 68 Total Protein 6.3 L Albumin 2.9 L Blood Type Antibody Screen MTS Gel Crossmatch 11/21/17 11/21/17 11/21/17 16:40 10:40 10:40 WBC 14.4 H RBC 4.10 L Hgb 12.7 L Hct 37.7 L MCV 92.1 MCH 31.1 MCHC 33.7 RDW 17.5 H Plt Count 250 MPV 7.0 Prelim Diff (Auto) Neut % (Auto) Lymph % (Auto) [place] % (Auto) Eos % (Auto) Baso % (Auto) Neut # (Auto) Lymph # (Auto) [place] # (Auto) Eos # (Auto) Baso # (Auto) WBC Differential Seg Neuts % (Manual) Band Neuts % (Manual) Lymphocytes % (Manual) Monocytes % (Manual) Eosinophils % (Manual) Basophils % (Manual) Myelocytes % (Man) Abs Neuts (Manual) Differential Comment Platelet Estimate Platelet Morphology PT INR APTT Sodium 139 Potassium 4.0 Chloride 100 Carbon Dioxide 31.6 Anion Gap 7 BUN 21 H Creatinine 0.91 Estimated GFR 80 L Random Glucose 76 Calcium 9.1 Total Bilirubin AST ALT Alkaline Phosphatase Total Protein Albumin Blood Type O Negative Antibody Screen Negative MTS Gel Crossmatch See Detail 11/21/17 11/21/17 10:40 10:40 WBC 11.4 H RBC 4.55 Hgb 14.1 Hct 41.6 MCV 91.6 MCH 31.0 MCHC 33.8 RDW 17.0 Plt Count 331 MPV 7.3 Prelim Diff (Auto) Slide review pending Neut % (Auto) 74.9 H Lymph % (Auto) 12.7 [place] % (Auto) 10.5 H Eos % (Auto) 1.3 Baso % (Auto) 0.6 Neut # (Auto) 8.5 H Lymph # (Auto) 1.4 [place] # (Auto) 1.2 H Eos # (Auto) 0.2 Baso # (Auto) 0.1 WBC Differential Manual diff final Seg Neuts % (Manual) 74 H Band Neuts % (Manual) 3 Lymphocytes % (Manual) 6 L Monocytes % (Manual) 10 H Eosinophils % (Manual) 4 Basophils % (Manual) 2 Myelocytes % (Man) 1 H Abs Neuts (Manual) 8.9 H Differential Comment . Platelet Estimate Normal Platelet Morphology Normal PT 11.2 D INR 1.1 APTT 26.2 Sodium Potassium Chloride Carbon Dioxide Anion Gap BUN Creatinine Estimated GFR Random Glucose Calcium Total Bilirubin AST ALT Alkaline Phosphatase Total Protein Albumin Blood Type Antibody Screen MTS Gel Crossmatch <Jossue Abdalla - Last Filed: 11/22/17 09:32> Date of admission: 11/21/17 09:10 Primary care physician: PROVIDER NON STAFF Patient update on day of discharge: clinically doing well no symptoms new BBB atrial fibrillation with AV conduction HR 100 appreciate EP assistance. Plan for EP study today to assess HV interval for +/- PPM. otherwise DC planning DS: Diagnosis - Discharge Diagnosis (1) Aortic stenosis Status: Acute DS: Summary - Time Spent with Patient Total time spent providing and/or coordinating discharge services: Less than 30 minutes Exam Vital signs: Vital Signs 11/21/17 11:08 11/21/17 15:55 11/21/17 17:00 Temperature 98.5 F Pulse Rate 96 H 119 H 104 H Respiratory Rate 18 14 Blood Pressure 112/78 142/62 H Pulse Oximetry 95 11/21/17 18:00 11/21/17 20:00 11/21/17 22:15 Temperature 98.0 F Pulse Rate 95 H 112 H Respiratory Rate 14 20 Blood Pressure 148/53 H 138/54 L Pulse Oximetry 95 97 97 11/22/17 00:00 11/22/17 00:12 11/22/17 03:30 Temperature Pulse Rate 98 H 102 H 97 H Respiratory Rate 16 14 14 Blood Pressure 123/40 L Pulse Oximetry 98 11/22/17 04:00 11/22/17 07:00 11/22/17 08:40 Temperature Pulse Rate 118 H 100 H 106 H Respiratory Rate 18 18 Blood Pressure 155/60 H Pulse Oximetry 97 95 11/22/17 09:00 Temperature 98.4 F Pulse Rate 103 H Respiratory Rate Blood Pressure 120/53 L Pulse Oximetry Intake & Output 11/21/17 11/22/17 11/22/17 18:59 06:59 18:59 Intake Total 1000 / 1000 1444 / 1444 0 / 0 Output Total 350 / 350 220 / 220 Balance 650 / 650 1224 / 1224 0 / 0 Weight 90 kg 91.5 kg Intake: IV 724 / 724 0 / 0 NS Inj 1,000 ML @ 125 mls/hr IV 724 / 724 0 / 0 .CONT .Q8H [facility] Rx#:[id number] Oral 720 / 720 Anesthesia Amount 1000 / 1000 Output: Urine 50 / 50 Estimated Blood Loss 50 / 50 Urine Amount (Catheter) 300 / 300 170 / 170 Indwelling Temp Sensing 300 / 300 170 / 170 Catheter Other: # Bowel Movements 0 Weight On Admission 90 kg Results Labs on day of discharge: Labs from last 24 hours 11/22/17 11/22/17 11/21/17 05:01 05:01 16:40 WBC 11.1 H RBC 4.03 L Hgb 12.6 L Hct 37.6 L MCV 93.5 MCH 31.2 MCHC 33.4 RDW 17.3 H Plt Count 248 MPV 7.1 Prelim Diff (Auto) Neut % (Auto) Lymph % (Auto) [place] % (Auto) Eos % (Auto) Baso % (Auto) Neut # (Auto) Lymph # (Auto) [place] # (Auto) Eos # (Auto) Baso # (Auto) WBC Differential Seg Neuts % (Manual) Band Neuts % (Manual) Lymphocytes % (Manual) Monocytes % (Manual) Eosinophils % (Manual) Basophils % (Manual) Myelocytes % (Man) Abs Neuts (Manual) Differential Comment Platelet Estimate Platelet Morphology PT INR APTT Sodium 140 139 Potassium 4.7 4.3 Chloride 103 101 Carbon Dioxide 26.6 29.7 Anion Gap 10 8 BUN 22 H 20 H Creatinine 0.83 0.78 Estimated GFR 88 L Greater than 89 Random Glucose 106 92 Calcium 8.2 L 8.4 L Total Bilirubin 1.6 H AST 28 ALT 17 Alkaline Phosphatase 68 Total Protein 6.3 L Albumin 2.9 L Blood Type Antibody Screen MTS Gel Crossmatch 11/21/17 11/21/17 11/21/17 16:40 10:40 10:40 WBC 14.4 H RBC 4.10 L Hgb 12.7 L Hct 37.7 L MCV 92.1 MCH 31.1 MCHC 33.7 RDW 17.5 H Plt Count 250 MPV 7.0 Prelim Diff (Auto) Neut % (Auto) Lymph % (Auto) [place] % (Auto) Eos % (Auto) Baso % (Auto) Neut # (Auto) Lymph # (Auto) [place] # (Auto) Eos # (Auto) Baso # (Auto) WBC Differential Seg Neuts % (Manual) Band Neuts % (Manual) Lymphocytes % (Manual) Monocytes % (Manual) Eosinophils % (Manual) Basophils % (Manual) Myelocytes % (Man) Abs Neuts (Manual) Differential Comment Platelet Estimate Platelet Morphology PT INR APTT Sodium 139 Potassium 4.0 Chloride 100 Carbon Dioxide 31.6 Anion Gap 7 BUN 21 H Creatinine 0.91 Estimated GFR 80 L Random Glucose 76 Calcium 9.1 Total Bilirubin AST ALT Alkaline Phosphatase Total Protein Albumin Blood Type O Negative Antibody Screen Negative MTS Gel Crossmatch See Detail 11/21/17 11/21/17 10:40 10:40 WBC 11.4 H RBC 4.55 Hgb 14.1 Hct 41.6 MCV 91.6 MCH 31.0 MCHC 33.8 RDW 17.0 Plt Count 331 MPV 7.3 Prelim Diff (Auto) Slide review pending Neut % (Auto) 74.9 H Lymph % (Auto) 12.7 [place] % (Auto) 10.5 H Eos % (Auto) 1.3 Baso % (Auto) 0.6 Neut # (Auto) 8.5 H Lymph # (Auto) 1.4 [place] # (Auto) 1.2 H Eos # (Auto) 0.2 Baso # (Auto) 0.1 WBC Differential Manual diff final Seg Neuts % (Manual) 74 H Band Neuts % (Manual) 3 Lymphocytes % (Manual) 6 L Monocytes % (Manual) 10 H Eosinophils % (Manual) 4 Basophils % (Manual) 2 Myelocytes % (Man) 1 H Abs Neuts (Manual) 8.9 H Differential Comment . Platelet Estimate Normal Platelet Morphology Normal PT 11.2 D INR 1.1 APTT 26.2 Sodium Potassium Chloride Carbon Dioxide Anion Gap BUN Creatinine Estimated GFR Random Glucose Calcium Total Bilirubin AST ALT Alkaline Phosphatase Total Protein Albumin Blood Type Antibody Screen MTS Gel Crossmatch Discharge Plan - Discharge Details Anticipated Discharge Date: 11/22/17 - Physicians Team Primary Care Provider: NON STAFF,PROVIDER Attending Provider: Jossue Abdalla Other Providers: ; Ani Ann MD ; Cindy Cardenas MD ; Canelo Chau MD ; [employer],Insurance - Rxs /Orders / Referrals /Forms Prescriptions: Continue atorvastatin [Lipitor] 20 mg Tablet 20 mg PO DAILY levothyroxine 50 mcg Tablet 50 mcg PO DAILY losartan 100 mg Tablet 100 mg PO DAILY metoprolol succinate 50 mg Tablet Extended Release 24 Hr 50 mg PO DAILY No Action albuterol sulfate 2.5 mg /3 mL (0.083 %) Solution For Nebulization 2.5 mg INHALATION Q4H PRN (Reason: Anxiety) clonazepam 1 mg Tablet 1 mg PO TID clopidogrel [Plavix] 75 mg Tablet 75 mg PO DAILY fluoxetine 20 mg Tablet 20 mg PO DAILY furosemide 20 mg Tablet 20 mg PO DAILY montelukast 10 mg Tablet 10 mg PO QPM warfarin [Coumadin] 5 mg Tablet 5 mg PO DAILY Referrals: NON STAFF,PROVIDER [Primary Care Provider] - See Instructions - Discharge Instructions Patient Printed Instructions: Transcatheter Aortic Valve Replacement (DC)
--- NOTE | 2017-11-22 13:30 | P.PN ---
Subjective Interval history: Tired Physical Exam Vital signs: Vital Signs 11/21/17 15:55 11/21/17 17:00 11/21/17 18:00 Temperature 98.5 F Pulse Rate 119 H 104 H 95 H Respiratory Rate 14 14 Blood Pressure 142/62 H 148/53 H Pulse Oximetry 95 95 11/21/17 20:00 11/21/17 22:15 11/22/17 00:00 Temperature 98.0 F Pulse Rate 112 H 98 H Respiratory Rate 20 16 Blood Pressure 138/54 L 123/40 L Pulse Oximetry 97 97 98 11/22/17 00:12 11/22/17 03:30 11/22/17 04:00 Temperature Pulse Rate 102 H 97 H 118 H Respiratory Rate 14 14 18 Blood Pressure 155/60 H Pulse Oximetry 97 11/22/17 07:00 11/22/17 08:40 11/22/17 09:00 Temperature 98.4 F Pulse Rate 100 H 106 H 103 H Respiratory Rate 18 Blood Pressure 120/53 L Pulse Oximetry 95 11/22/17 11:14 11/22/17 13:10 Temperature 98.1 F Pulse Rate 105 H 82 Respiratory Rate 16 16 Blood Pressure 114/63 Pulse Oximetry 95 Intake & Output 11/21/17 11/22/17 11/22/17 18:59 06:59 18:59 Intake Total 1000 / 1000 1444 / 1444 0 / 0 Output Total 350 / 350 220 / 220 750 / 750 Balance 650 / 650 1224 / 1224 -750 / -750 Weight 90 kg 91.5 kg Intake: IV 724 / 724 0 / 0 NS Inj 1,000 ML @ 125 mls/hr IV 724 / 724 0 / 0 .CONT .Q8H [facility] Rx#:[id number] Oral 720 / 720 Anesthesia Amount 1000 / 1000 Output: Urine 50 / 50 750 / 750 Estimated Blood Loss 50 / 50 Urine Amount (Catheter) 300 / 300 170 / 170 Indwelling Temp Sensing 300 / 300 170 / 170 Catheter Other: # Bowel Movements 0 Weight On Admission 90 kg - Constitutional mild distress - Routine HEENT Exam Head: Present: normocephalic Eye: Present: PERRL ENT: Present: mucous membranes moist - Routine Cardiovascular Exam Present: tachycardia, irregularly irregular - Routine Abdominal Exam Present: soft - Routine Neurological Exam Present: alert, oriented X3 - Urinary Catheter Management Indwelling Temp Sensing Catheter Cath placed during this visit: yes, but has since been removed by the nurse Reason for continuing: Decision to DC catheter Insertion date: 11/21/17 Insertion time: 13:50 Removal date: 11/21/17 Removal time: 21:30 Results - Labs CBC & Chem 7: 11/22/17 05:01 11/22/17 05:01 Laboratory Results - last 24 hr 11/21/17 11/21/17 11/21/17 10:40 16:40 16:40 WBC 14.4 H RBC 4.10 L Hgb 12.7 L Hct 37.7 L MCV 92.1 MCH 31.1 MCHC 33.7 RDW 17.5 H Plt Count 250 MPV 7.0 Sodium 139 Potassium 4.3 Chloride 101 Carbon Dioxide 29.7 Anion Gap 8 BUN 20 H Creatinine 0.78 Estimated GFR Greater than 89 Random Glucose 92 Calcium 8.4 L Total Bilirubin 1.6 H AST 28 ALT 17 Alkaline Phosphatase 68 Total Protein 6.3 L Albumin 2.9 L Blood Type O Negative Antibody Screen Negative MTS Gel Crossmatch See Detail 11/22/17 11/22/17 05:01 05:01 WBC 11.1 H RBC 4.03 L Hgb 12.6 L Hct 37.6 L MCV 93.5 MCH 31.2 MCHC 33.4 RDW 17.3 H Plt Count 248 MPV 7.1 Sodium 140 Potassium 4.7 Chloride 103 Carbon Dioxide 26.6 Anion Gap 10 BUN 22 H Creatinine 0.83 Estimated GFR 88 L Random Glucose 106 Calcium 8.2 L Total Bilirubin AST ALT Alkaline Phosphatase Total Protein Albumin Blood Type Antibody Screen MTS Gel Crossmatch - Procedures TAVR 11/21/17 Assessment and Plan - Assessment (1) Atrial fibrillation Code(s): I25.10 - Atherosclerotic heart disease of [place] coronary artery without angina pectoris Status: Acute Plan: In atrial fibrillation Bursts of high heart rate observed. Heart rate will be controlled (2) Left bundle branch block (LBBB) Code(s): Z95.1 - Presence of aortocoronary bypass graft Status: Acute Plan: New LBBB. previous EKG show afib with a narrow QRS QRS now is over 160 ms. EPS will be performed base on the HV, decision will be taken case discussed with patient (3) Aortic stenosis Code(s): I35.0 - Nonrheumatic aortic (valve) stenosis Status: Acute Plan: SP TAVR
--- NOTE | 2017-11-22 13:31 | ECHRPT ---
Indication: CONCLUSIONS Status post transcatheter aortic valve replacement. No significant perivalvular leak present. BP: / HR: Rhythm: MEASUREMENTS (Male / Female) Normal Values Technical Quality: 2D ECHO LVOT Diameter 1.7 cm DOPPLER AV Peak Velocity 200.0 cm/s AV Peak Gradient 16.0 mmHg AV Mean Gradient 6.0 mmHg AV Velocity Time Integral 35.9 cm LVOT Peak Velocity 90.2 cm/s LVOT Peak Gradient 3.3 mmHg LVOT Velocity Time Integral 19.2 cm AV Area Cont Eq vti 1.2 cm AV Area Cont Eq pk 1.0 cm FINDINGS LEFT VENTRICLE Normal left ventricular size. Mild concentric left ventricular hypertrophy. The left ventricular systolic function is normal with an estimated ejection fraction in the range of 60-65%. RIGHT VENTRICLE Normal right ventricular size and systolic function. LEFT ATRIUM The left atrial size is normal. RIGHT ATRIUM The right atrial size is normal. ATRIAL SEPTUM Normal atrial septal thickness without atrial level shunting by limited color doppler interrogation. AORTA The aortic root and proximal ascending aorta are normal in size on limited imaging. MITRAL VALVE Structurally normal mitral valve. No mitral valve stenosis or regurgitation. AORTIC VALVE Status post transcatheter aortic valve replacement. No significant perivalvular leak present. TRICUSPID VALVE Structurally normal tricuspid valve. No tricuspid valve stenosis or regurgitation. PULMONARY VALVE The pulmonary valve is not well visualized. VESSELS The inferior vena cava is normal in size. PERICARDIUM No pericardial effusion. Jossue Abdalla MD, FACC (Electronically Signed) Final Date:22 November 2017 13:30
--- NOTE | 2017-11-22 15:20 | MB ---
cc: Cindy Cardenas MD DATE: 11/21/2017 REASON FOR CONSULTATION: Atrial fibrillation with fast ventricular response postoperative. HISTORY OF PRESENT ILLNESS: Mr. Hurd is an 81-year-old gentleman with history of congestive failure, coronary artery disease, atrial fibrillation, COPD, aortic stenosis that was admitted for aortic valve replacement by Dr. Abdalla. Procedure was successful. Post-procedure, I was consulted for evaluation and management. The chart was reviewed. The patient was evaluated. ALLERGIES: SULFA AND TETRACYCLINE. SOCIAL HISTORY: This gentleman denies smoking and drinking. FAMILY HISTORY: Noncontributory to his current medical condition. MEDICATIONS: This gentleman is on: 1. . 2. Albuterol inhaler. 3. Aspirin 81 mg a day. 4. Lipitor 20 mg a day. 5. Plavix 75 mg a day. 6. Cardizem at 30 mg p.o. every 6 hours p.r.n. 7. Cardizem IV p.r.n. 8. Also, Lasix 20 mg a day. 9. Losartan 100 mg a day. 10. Percocet p.r.n. 11. Potassium also. REVIEW OF SYSTEMS: The patient with some shortness of breath, but doing better. No chest pain, no chest discomfort. PHYSICAL EXAMINATION: GENERAL: Alert, fully oriented. VITAL SIGNS: Blood pressure on evaluation 148/53, pulse around 112 irregular, respiratory rate 18. LUNGS: Ventilated. CARDIOVASCULAR: S1, S2, irregular. No gallop. Right jugular central line. ABDOMEN: Obese. No mass. EXTREMITIES: No edema. DIAGNOSTIC DATA: Electrocardiogram showed atrial fibrillation, left bundle branch block with a QRS of over 160 milliseconds. LABORATORY DATA: Hemoglobin 12.7, white blood cell 14.0, potassium 4.3, creatinine 0.78. ASSESSMENT AND RECOMMENDATIONS: Mr. Hurd has atrial fibrillation. He is status post coronary artery bypass grafting. There is some V-pacing; I did disconnect the temporary pacemaker. His heart rate needs to be controlled. There was no previous electrocardiogram on evaluation. I am going to review the EKG and look for old records; there is none available in this hospital. Based on the old record and the previous EKG, further decision will be taken. At this point, my recommendation is to continue current management, rate control, pacemaker only on standby. I will follow him during hospitalization. Case will be discussed with Dr. Abdalla. MD CHERIE Ordoñez/david/breanna , 01:13 PM , 01:23 PM
[2017-11-22] MEDS ORDERED: dilTIAZem Inj 125 MG in Sodium Chlor 0.9% Inj 100 ML IV.CONT PRN (17:17)
[2017-11-22] MEDS ORDERED: Amiodarone 200 MG Tablet PO SCH (18:00)
[2017-11-22] MEDS ORDERED: Sodium Chlor 0.9% Inj 500 ML IV.SIG PRN (20:36)
--- NOTE | 2017-11-22 23:55 | ECG ---
Date Performed: 11/22/2017 Time Performed: 05:21:56 PTAGE: 81 years EKG: Atrial fibrillation with rapid ventricular response Left axis deviation IV conduction defec t Inferior infarct - age undetermined Possible anterior infarct - age undetermined Lateral ST-T bain es may be due to myocardial ischemia Abnormal ECG Since the PREVIOUS TRACING , no significant change noted DOCTOR: Hubert Deleon Interpretating Date/Time 11/22/2017 23:53:50
--- NOTE | 2017-11-23 00:44 | ECG ---
Date Performed: 11/21/2017 Time Performed: 16:16:34 PTAGE: 81 years EKG: Atrial fibrillation with rapid ventricular response Lead(s) unsuitable for analysis: V2 Lef t axis deviation Left bundle branch block Possible inferior infarct - age undetermined Abnormal ECG NO PREVIOUS TRACING DOCTOR: Hubert Deleon Interpretating Date/Time 11/23/2017 00:42:58
[2017-11-23] MEDS: Sod Chloride 0.9% Inj 1,000 ML IV.CONT SCH ×2 (03:48→13:08)
[2017-11-23] MEDS: Levothyroxine 50 MCG Tablet PO SCH (05:14)
--- NOTE | 2017-11-23 08:04 | P.PNCA ---
Subjective Interval history: On Cardizem drip at 5 for A. fib RVR, heart rate currently 80s. The patient reports a little bit of lightheadedness with associated borderline hypotension on Cardizem. Going for EP study today. He denies any chest pain, shortness breath, palpitations. Physical Exam Vital signs: Vital Signs 11/22/17 08:40 11/22/17 09:00 11/22/17 11:14 Temperature 98.4 F 98.1 F Pulse Rate 106 H 103 H 105 H Respiratory Rate 18 16 Blood Pressure 120/53 L 114/63 Pulse Oximetry 95 95 11/22/17 13:10 11/22/17 15:00 11/22/17 16:04 Temperature 98.5 F Pulse Rate 82 113 H 110 H Respiratory Rate 16 18 22 Blood Pressure 108/52 L Pulse Oximetry 93 L 93 L 11/22/17 19:00 11/22/17 20:00 11/22/17 20:07 Temperature 100 F H Pulse Rate 87 88 112 H Respiratory Rate 18 20 Blood Pressure 92/51 L Pulse Oximetry 95 11/22/17 23:00 11/23/17 00:01 11/23/17 02:00 Temperature 98.1 F Pulse Rate 85 70 83 Respiratory Rate 18 17 Blood Pressure 98/52 L Pulse Oximetry 94 L 96 11/23/17 03:00 11/23/17 04:00 11/23/17 04:05 Temperature 98.4 F Pulse Rate 80 75 80 Respiratory Rate 18 16 Blood Pressure 105/54 L Pulse Oximetry 95 11/23/17 04:59 11/23/17 05:59 11/23/17 07:00 Temperature Pulse Rate 83 80 72 Respiratory Rate Blood Pressure Pulse Oximetry Intake & Output 11/22/17 11/23/17 11/23/17 18:59 06:59 18:59 Intake Total 750 / 750 740 / 740 Output Total 1400 / 1400 400 / 400 Balance -650 / -650 340 / 340 Weight 202 lb 13.204 oz Intake: IV 0 / 0 500 / 500 NS Inj 1,000 ML @ 125 mls/hr IV 0 / 0 .CONT .Q8H BECKY Rx#:[id number] NS Inj 500 ML @ 500 mls/hr IV. 500 / 500 SIG .Q1H PRN Rx#:[id number] Oral 750 / 750 240 / 240 Output: Urine 1400 / 1400 400 / 400 Narrative: GENERAL: Well-developed well-nourished. In no acute distress. NECK: No carotid bruits. No JVD. CARDIOVASCULAR: Irregular rate and rhythm. No murmur appreciated. RESPIRATORY: No accessory muscle use. Clear to auscultation. Breath sounds equal bilaterally. MUSCULOSKELETAL: No clubbing or cyanosis. No edema. NEUROLOGICAL: Awake and alert. Normal speech. - Urinary Catheter Management Indwelling Temp Sensing Catheter Cath placed during this visit: yes, but has since been removed by the nurse Reason for continuing: Decision to DC catheter Insertion date: 11/21/17 Insertion time: 13:50 Removal date: 11/21/17 Removal time: 21:30 Assessment and Plan - Assessment (1) Aortic stenosis Code(s): I35.0 - Nonrheumatic aortic (valve) stenosis Status: Acute - Plan 81-year-old gentleman with a history of severe who presented for TAVR 11/21 clinically doing well new BBB atrial fibrillation with AV conduction HR 100 appreciate EP assistance. Plan for EP study today to assess HV interval for +/- PPM. DC planning pending EP recommendations - Attending Attestation appreciate dr sesay EP assistance PPM placed afib rvr. CCB DC planning for tomorrow plavix warfarin on DC ambulate
[2017-11-23] MEDS: Ferrous Sulfate 325 MG Tablet PO SCH (09:00)
[2017-11-23] MEDS: clonazePAM 1 MG Tablet PO SCH ×3 (09:00→18:01)
[2017-11-23] MEDS: FLUoxetine 20 MG Capsule PO SCH (09:00)
[2017-11-23] MEDS: Furosemide 20 MG Tablet PO SCH (09:00)
[2017-11-23] MEDS ORDERED: Phenylephrine/NS 1000 MCG/10ML Syringe IV.PUSH ONE (09:29)
[2017-11-23] MEDS ORDERED: Sodium Chlor 0.9% Inj 500 ML IV.CONT ONE (09:29)
--- NOTE | 2017-11-23 10:20 | CATHPROC ---
[employer] HIS Report Study Information Study Number Admission Scheduled Start Study Start [id number] Nov 21 2017 9:10AM 11/23/2017 Nov 23 2017 8:43AM [facility] Cardiac Catheterization Admit Source Facility Department Other [facility] - [employer] Recorder Physician and Clinical Staff Initial Cindy Antonio Other Anesthesia, EXTRUSION TECHNICIAN Recorder Zoe Olson RN Recorder Yeni Joya,[place] Equipment Time Rn Homecare Description Size Mfg Part Number Used/Scraped [id number] 08:54 [employer] BLANKET,WARM AIR CCL * Used *[id number] 08:54 [employer] PACK, CCL CUSTOM * Used *[id number] 08:54 [employer] PACER FARMER, LIMB * 2530 *[id number] Used [id number] 10:10 [employer] MEDICAL CATHETER, CRD-2, QUAD FR 5 Used *[id number] 09:51 [employer] MEDICAL CATHETER, JSN, QUAD FR 5 Used *[id number] 09:51 [employer] MEDICAL CATHETER, JSN, QUAD FR 5 Used *[id number] 09:51 [employer] MEDICAL CATHETER, JSN, QUAD FR 5 Used *[id number] 09:51 [employer] SHEATH, EPS, FR5 FAST CATH FR 5 Used *[id number] 265085 09:51 [employer] MED[employer] SHEATH, EPS, FR5 FAST CATH FR 5 Used *[id number] 882968 09:53 [employer] MEDICAL SHEATH, EPS, FR6 FAST CATH FR 6 Used *[id number] History: Allergies Allergy Reaction Sulfa (Sulfonamide Antibiotics) Rash tetracycline Abdominal Pain History: Risk Factors Hypertension Dyslipidemia Yes Yes Chronic Lung Disease Labs Hgb (g/dl) Hct (%) RBC (MIL/MM3) WBC (l/cumm) Platelets (thousands) 11.60-17.00 35.00-51.00 4.00-5.90 4.00-11.00 150.00-450.00 12.0 37 4 11 248 Glucose (mg/dl) BUN (mg/dl) Creatinine (mg/dl) BUN:Creatinine (1:x) 74.00-106.00 7.00-18.00 0.50-1.30 10.00-20.00 106 22 0.8 27.5 Na (meq/l) K (meq/l) 136.00-145.00 3.50-5.10 140 4.7 INR (PTT:PT) 0.90-1.10 1.1 Medication Medication Total Dose (Bolus/Oral) Medication Total Dosage/Unit 1% XYLOCAINE 20 mL Medications (Bolus/Oral) Medication Time Given Dosage/Unit Administered By Reason 1% XYLOCAINE 11/23/2017 10:01:42 AM 20 mL Cindy Cardenas 20 mL 1% XYLOCAINE given by Cindy Cardenas in Right Groin via Subcutaneous. Initial Case Assessment Cardiovascular HR Rhythm NIBP Chest Pain 77 af 135/61 0 Edema Present Skin color Skin None Normal Warm Dry Circulatory - Right Pulses Dorsalis Pedis Radial 1 1 Scale (0,1,2,3,4,d) Circulatory - Left Pulses Dorsalis Pedis Radial 1 1 Scale (0,1,2,3,4,d) Circulatory - Lower Extremities Color Lower Right Color Lower Left Normal Normal Neurological State Oriented to time-place- Alert Moves all extremities person Respiration - General Respiration Rate SpO2 (%) O2 (lpm) (B/min) 20 96 4 Chronological Log Time Study Chronological Log 9:28:16 Patient arrived via Bed. 9:28:18 Patient Name, D.O.B, / Armband Verified By R.N. 9:28:18 Consent signed by the physician and the patient and verified by the [employer] Rec[employer] staff. 9:28:19 Pre-op and post- op instructions given; patient acknowledges understanding of instructions. 9:28:19 Verbal Stimulation=2 Physical Stimulation=2 Airway=2 Respiration=2 TOTAL=8. (0=absent, 1=li mited, 2=present) 9:28:31 Patient has been NPO for More than 6Hrs. 9:28:32 Skin Breakdown- none per pt 9:28:33 Patient Warmer Placed on the Table. 9:28:35 Disposable Defibrillator Pads Placed On Patient. 9:28:36 Anthony Prominences Protected 9:28:36 A # 20 IV was noted in the Antecubital (right). Grade = 0 0.9ns kvo 9:28:37 A # 20 IV was noted in the Forearm (left). Grade = 0 09ns kvo 9:28:38 History and physical on the chart or being dictated. 9:28:56 Cardizem gtt off per order Dr. Cardenas. 9:29:20 Anesthesia at bedside. Assumes care of patient. 9:44:28 Table restraints applied according to hospital policy Assessment: Initial Case, HR=77 BPM, Rhythm=af, MVUA=623/61 mmhg, Chest Pain=0, Edema=None, Col or=Normal, Skin = Warm, Dry Right Pulses: Alfredo Ped=1, Radial=1 Left Pulses: Alfredo Ped=1, Radial=1 9:46:55 Lower Right Extremities: Color=Normal Lower Left Extremities: Color=Normal Neurological: State=Alert, Ox3, MALHOTRA Respiration: Resp=20 B/min, SpO2=96 %, O2=4 lpm 9:47:44 Reference ECG taken 9:49:44 Pt intubated. 9:50:36 Bilateral groins prepped with 2% chlorhexidine, and draped after a 3 minute waiting time. 9:58:19 MD arrived. Time Out. Correct patient, procedure, procedure equipment, site and side verified with physicia n present. Time 10:01:02 concurred by MD, individual staff and EXTRUSION TECHNICIAN. Time Out #2 - Consents verified, patient in correct position, all results are labled and displa yed, safety precautions 10:01:30 taken, antibiotics administered. Time out concurred by MD, individual staff and EXTRUSION TECHNICIAN in procedu re 10:01:41 Case Start 10:01:42 20 mL 1% XYLOCAINE given by Cindy Cardenas in Right Groin via Subcutaneous. 10:02:03 Vascular access was obtained in the Fem Vein (right). 10:02:10 Vascular access was obtained in the Fem Vein (right). 10:02:15 Vascular access was obtained in the Fem Vein (right). 10:02:31 A SHEATH, EPS, FR5 FAST CATH FR 5 was advanced into the Fem Vein (right) using the Modified Seldinger technique. 10:02:39 A SHEATH, EPS, FR5 FAST CATH FR 5 was advanced into the Fem Vein (right) using the Modified Seldinger technique. 10:02:43 A SHEATH, EPS, FR6 FAST CATH FR 6 was advanced into the Fem Vein (right) using the Modified Seldinger technique. A CATHETER, JSN, QUAD FR 5 was advanced vis Fem Vein (right) and placed in the CS. Placement wa s visually 10:04:02 confirmed under fluoroscopy. A CATHETER, JSN, QUAD FR 5 was advanced vis Fem Vein (right) and placed in the HIS. Placement w as visually 10:04:45 confirmed under fluoroscopy. A CATHETER, JSN, QUAD FR 5 was advanced vis Fem Vein (right) and placed in the RVA. Placement w as visually 10:05:00 confirmed under fluoroscopy. A CATHETER, CRD-2, QUAD FR 5 was advanced and exchanged vis Fem Vein (right) and placed in the HIS. Placement 10:10:57 was visually confirmed under fluoroscopy. 10:12:42 EPS in progress. 10:18:26 All catheter(s) except RVA removed without difficulty. 10:18:54 Sheath(s) left in place, will be removed in Holding Area 10:19:25 NOTE: This patient is undergoing an additional procedure while still in the Cardiac Cath La b. 11:19:24 EP Procedure was performed. End Study - Contrast Media Used In Study Contrast Total Opened (mL) Total Used (mL) Total Wasted (mL) Unspecified 0 0 0 End Study - Maximum Contrast Load Max Contrast Load (mL) 575.0 End Study - Radiation Exposure Fluoro Time (minutes) 2.6 End Study - Patient Disposition Complications Transferred To Interventional Outcome No [employer] Holding successful
[2017-11-23] MEDS ORDERED: Heparin/NS PF Inj 500 ML ONE (10:35)
[2017-11-23] MEDS ORDERED: Heparin 10,000 UNITS/10 ML Vial (for IV use) ONE (10:38)
--- NOTE | 2017-11-23 11:18 | CATHPROC ---
[employer] HIS Report Study Information Study Number Admission Scheduled Start Study Start [id number] Nov 21 2017 9:10AM 11/23/2017 Nov 23 2017 8:42AM [place] [facility] Cardiac Catheterization Admit Source Facility Department Other [facility] - Deputy County Counsel Physician and Clinical Staff Initial Cindy Antonio Maritime Pilot Cyndie Thompson,LICENSING SPECIALIST Other Anesthesia, PUBLIC POLICY PROFESSOR Recorder Zoe Olson,RN Scrub Roberto Adams,RT(R) Procedures Performed Procedure Location (Site) Vessel Name Venogram RV Ventricle Equipment Time Inspector Filter Tip Description Size Mfg Part Number Used/Scraped [id number] 10:23 COOK/PACER DILATOR SET (MICRA) FR8-12 Used *[id number] WIRE, GUIDE AMPLATZ STIFF [id number] 10:23 COOK/PACER 3MMJ Used 180CM *[id number] 10:23 [employer] BLANKET,WARM AIR CCL * Used *[id number] 10:23 [employer] PACK, CCL CUSTOM * Used *[id number] 10:23 [employer] PACER FARMER, LIMB * 2530 *[id number] Used [id number] 10:23 NAMIC TUBING, HIGH PRESSURE 20" 20" Used *[id number] 10:23 [employer] OMNIPAQUE, 300 MG, 50ML 50ML [id number] Used SUTURE, 0 ETHIBOND [CT1] (CX21D), 8pk 10:23 [employer] MED[employer]ON[employer] MONITOR, PACEMAKER\\ICD 26760 *[id number] Used [id number] 10:30 [employer] SHEATH, INTRODUCER (MICRA) Used *[id number] SYSTEM, TRANS-CATHETER [id number] 10:23 [employer] Used PACING (MICRA) *[id number] History: Allergies Allergy Reaction Sulfa (Sulfonamide Antibiotics) Rash tetracycline Abdominal Pain Medication Medication Total Dose (Bolus/Oral) Medication Total Dosage/Unit 2% XYLOCAINE 50 mL HEPARIN 3000 units Medications (Bolus/Oral) Medication Time Given Dosage/Unit Administered By Reason 2% XYLOCAINE 11/23/2017 10:41:38 AM 50 mL Cindy Cardenas 50 mL 2% XYLOCAINE given by Cindy Cardenas in Right Groin via Subcutaneous. HEPARIN 11/23/2017 10:47:52 AM 3000 units Cindy Cardenas As per physicians rusty rainey order 3000 units HEPARIN given by Cindy Cardenas via Peripheral IV. Ordered by Cindy Cardenas. Reason: As per physicians verbal order. Medication (Drip) Medication Time Given Dosage/Unit Concentration/Unit Diluent (ml) Solution VANCOMYCIN DRIP 11/23/2017 10:30:26 AM 1 g 1 g VANCOMYCIN DRIP given by Anesthesia, PUBLIC POLICY PROFESSOR via Peripheral IV. Ordered by Cindy Cardenas. Reason: As per physicians verbal order. Final Case Assessment Cardiovascular HR Rhythm NIBP Chest Pain 79 vp treasurer 120/59 0 Edema Present Skin color Skin None Normal Warm Dry Circulatory - Right Pulses Dorsalis Pedis 1 Scale (0,1,2,3,4,d) Circulatory - Left Pulses Dorsalis Pedis 1 Scale (0,1,2,3,4,d) Circulatory - Lower Extremities Color Lower Right Color Lower Left Normal Normal Neurological State Unresponsive Comment: intubated at this time Respiration - General Respiration Rate SpO2 (%) (B/min) 16 100 Respiration - Ventilator Type Intubation Type ET(oral) Respiration - Ventilator Settings FIO2 (%) 50 Chronological Log Time Study Chronological Log 10:19:00 Initial procedure has been completed. Beginning additional procedure. 10:19:01 NOTE: This patient is undergoing an additional procedure while still in the Cardiac Cath La b. 10:21:16 Anesthesia remains at bedside. Assuming care of patient. 10:21:33 Bovie ground pad applied to: right thigh 1 g VANCOMYCIN DRIP given by Anesthesia, PUBLIC POLICY PROFESSOR via Peripheral IV. Ordered by Cindy Cardenas. Reas on: As per 10:30:26 physicians verbal order. 10:38:37 [employer] rep present. 10:41:07 Reference ECG taken 10:41:38 50 mL 2% XYLOCAINE given by Cindy Cardenas in Right Groin via Subcutaneous. 10:41:56 The previous wire was exchanged for a WIRE, GUIDE AMPLATZ STIFF 180CM 3MMJ. A DILATOR SET (MICRA) FR8-12 was exchanged in the Fem Vein (right). This was necessary in order to accomodate a 10:42:29 larger catheter. 8 10:43:28 1 5Fr sheath removed A DILATOR SET (MICRA) FR8-12 was exchanged in the Fem Vein (right). This was necessary in order to accomodate a 10:46:36 larger catheter. 12 A DILATOR SET (MICRA) FR8-12 was exchanged in the Fem Vein (right). This was necessary in order to accomodate a 10:47:23 larger catheter. 16 A DILATOR SET (MICRA) FR8-12 was exchanged in the Fem Vein (right). This was necessary in order to accomodate a 10:47:32 larger catheter. 20 3000 units HEPARIN given by Cindy Cardenas via Peripheral IV. Ordered by Cindy Cardenas. Reason: As per physicians 10:47:52 verbal order. A SHEATH, INTRODUCER (MICRA) was exchanged in the Fem Vein (right). This was necessary in order to accomodate 10:48:56 a larger catheter. 10:50:06 Micra device prepped and set up. 10:50:41 A SYSTEM, TRANS-CATHETER PACING (MICRA) was advanced via right fem vein and placed in the R V under fluoro. 10:51:53 Pt paced w quad in rv The RV was manually injected with 10 cc's of contrast. OMNIPAQUE, 300 MG, 50ML 50ML used to vis ualiz septal 10:54:16 placment. 10:57:44 Micra deployed and placedment confirmed in 2 views under fluoro. 10:58:22 The Micra impedance and threshold being tested. 10:58:41 Delivery system and introducer removed from FVR. 11:00:14 Sheaths removed; pressure applied to access sites. 11:00:[address] and to be removed at 5pm. Pressure held by DB. 11:03:02 PACU called. Spoke to Leticia 11:03:16 Bedside Report will be given. 11:03:33 Implant Procedure was performed. 11:03:46 A PPM Implant . (Single) Micra 11:13:38 Sterile dressing applied to site 11:15:01 Case End (Physician broke scrub) 11:15:57 Defibrillator and ground pads removed. Skin intact. 11:16:27 No case complications noted. 11:16:29 Cine recording checked. Assessment: Final Case, HR=79 BPM, Rhythm=vp treasurer, LWMX=413/59 mmhg, Chest Pain=0, Edema=None, Color =Normal, Skin = Warm, Dry Right Pulses: Alfredo Ped=1 Left Pulses: Alfredo Ped=1 11:16:43 Lower Right Extremities: Color=Normal Lower Left Extremities: Color=Normal Neurological: State=Unresponsive, Comment=intubated at this time Respiration: Resp=16 B/min, LsL4=477 %, Type=ET(Oral), FIO2=50 % 11:20:34 Patient moved to stretcher End Study - Contrast Media Used In Study Contrast Total Opened (mL) Total Used (mL) Total Wasted (mL) Omnipaque 50 10 40 End Study - Radiation Exposure Fluoro Time (minutes) 2.4 End Study - Sheaths Sheaths Pulled By Sheath Hold Time (min) Roberto Adams 15 End Study - Patient Disposition Complications Transferred To Interventional Outcome No Telemetry Bed successful
[2017-11-23] MEDS ORDERED: fentaNYL Citrate Inj 100 MCG/2 ML Ampul ONE (11:41)
[2017-11-23] MEDS ORDERED: dilTIAZem CD 240 MG Capsule PO ONE (12:30)
[2017-11-23] MEDS ORDERED: Iohexol 350 MG/ML 50 ML Vial (for Cath Lab) IVCONTRAST ONE (12:33)
[2017-11-23] MEDS: Montelukast 10 MG Tablet PO SCH (18:01)
[2017-11-24] MEDS: Levothyroxine 50 MCG Tablet PO SCH (05:36)
[2017-11-24] MEDS: Furosemide 20 MG Tablet PO SCH (08:24)
[2017-11-24] MEDS: FLUoxetine 20 MG Capsule PO SCH (08:24)
[2017-11-24] MEDS: Ferrous Sulfate 325 MG Tablet PO SCH (08:24)
[2017-11-24] MEDS: clonazePAM 1 MG Tablet PO SCH ×2 (08:25→12:49)
--- NOTE | 2017-11-24 09:16 | MP ---
cc: Cindy Cardenas MD DATE OF OPERATION: 11/23/2017 Transvenous pacemaker insertion, wireless transvenous pacemaker insertion. INDICATIONS FOR PROCEDURE: Mr. Hurd is an 81-year-old gentleman with history of atrial fibrillation, status post TAVR, electrocardiographic change, around 100-104 milliseconds who underwent permanent pacemaker insertion. The risks, the nature, and the benefits of the procedure were clearly stated to him and his family before the procedure. Risks include pneumothorax, cardiac perforation, stroke, need for open heart surgery, and even . The patient understood and agreed to proceed. DESCRIPTION OF PROCEDURE: After well-informed consent was obtained prior to electrophysiology study, the patient was kept on the table where he was prepped and draped in the usual sterile fashion. Conscious sedation was continued and maintained by the anesthesiologist. Once sedation was verified, the 6-Montenegrin in the right femoral vein was upgraded. Through the 6-Montenegrin, I did advance a stiff Amplatz that was placed all the way to the superior vena cava. Then, around a 1 cm incision was made. Subsequently, the vein was previously dilated using the 8, 12, 16, and 20-Montenegrin dilator. Then, after preparing the sheath, the 20-Montenegrin dilator was removed and the sheath was advanced all the way to the right atrium. The patient received 3000 units of heparin. Then through the sheath, the Micra delivery system was advanced. The device was placed in the mid septal area. Venography showed good position. Then, subsequently he was released and delivered after adequate pacing and sensing thresholds obtained in multiple locations. At that point, the dilator, the sheath, and the delivery system were removed. A 2-0 Ethibond suture was placed at the exit point to prevent bleeding. It was tight. The patient is stable. He is going to be transferred to the recovery room. That was a very complex case . The patient tolerated the procedure. Blood loss minimal. 1. is a [facility] model #QJ4TY29, serial #[id number]. 2. Right ventricle pacing threshold in bipolar mode was 0.5 volts at 0.24 milliseconds, lead impedance is 840 ohms, R-wave at 10.5 millivolts. Setting the device for VVI 50. Will be reevaluated in the future if rate response will be necessary. ____ Micra pacemaker insertion. COMMENT AND RECOMMENDATION: The patient is going to be transferred to the recovery room. He will be observed can be discharged home in the morning. The TAVR team was already informed. MD CHERIE Ordoñez/verónica/breanna , 11:12 AM , 11:24 AM
--- NOTE | 2017-11-24 09:17 | MA ---
cc: Cindy Cardenas MD DATE: 11/23/2017 PROCEDURE: Electrophysiology study and CS cannulation. INDICATIONS: Mr. Hurd is an 81-year-old gentleman status post TAVR, QRS goes from normal to around 116 milliseconds or more, who was referred for electrophysiology study. The risks, the nature, and the benefits of the procedure are clearly stated to him and his family. Risks include pneumothorax, cardiac perforation, stroke, need for open heart surgery, and even . The patient understood and agreed to proceed. DESCRIPTION OF PROCEDURE: After written informed consent was obtained, the patient was brought to the EP lab where he was prepped and draped in the usual sterile fashion. Conscious sedation was initiated and maintained throughout the procedure by the anesthesiologist. Once sedation was verified, the right inguinal area was anesthetized with 2% Xylocaine. Using modified Seldinger technique, the left femoral vein was cannulated on 4 occasions, 4 guidewires were advanced over the wire. Two 5 and 6-Ecuadorean Hemaquet were advanced. Then, under fluoroscopic guidance, through the 5 and 6-Ecuadorean Hemaquets, three 5-Ecuadorean Fauzia curved quadripolar electrophysiology catheters were advanced and placed at the His, coronary sinus, and right ventricular apex. Basic interval was measured. The patient was in atrial fibrillation. HV varied between 102-104 milliseconds after multiple measurements. At that time, ventricular pacing protocol was performed. No tachyarrhythmia was induced. The procedure was complete. The patient has a prolonged HV level was roughly a wide QRS. He is going to be kept on the table. A single-chamber pacemaker will be implanted. No incident report. The patient tolerated procedure. Blood loss minimal. 1. Electrocardiogram: At baseline, the patient was in atrial fibrillation. Post-procedure lead echocardiogram was unchanged. 2. Basic interval: Basic cycle length was around 800 milliseconds and HV was around 104 milliseconds. 3. Ventricular pacing protocol. No tachyarrhythmia was induced. CONCLUSION: disease. RECOMMENDATION: The patient will be kept on the table, as mentioned before, where a Micra single-chamber permanent pacemaker will be inserted. Cindy Cardenas MD HS/ts/breanna , 11:15 AM , 11:26 AM
--- NOTE | 2017-11-24 09:20 | P.PNCA ---
Subjective Interval history: RN reports groin wound has been "oozing" and for this reason he has not been out of bed ambulating yet. patient denies chest pain or sob. s/p PPM yesterday, Physical Exam Vital signs: Vital Signs 11/23/17 10:00 11/23/17 11:32 11/23/17 11:45 Temperature 97.5 F L Pulse Rate 70 78 78 Respiratory Rate 18 18 Blood Pressure 105/54 L 105/55 L Pulse Oximetry 96 96 11/23/17 12:00 11/23/17 12:15 11/23/17 12:30 Temperature 97.5 F L Pulse Rate 77 76 75 Respiratory Rate 18 18 18 Blood Pressure 99/52 L 90/51 L 105/52 L Pulse Oximetry 96 96 96 11/23/17 13:00 11/23/17 14:00 11/23/17 15:00 Temperature Pulse Rate 74 60 60 Respiratory Rate Blood Pressure Pulse Oximetry 11/23/17 16:00 11/23/17 16:06 11/23/17 17:00 Temperature 98 F Pulse Rate 81 70 65 Respiratory Rate 24 18 Blood Pressure 98/55 L Pulse Oximetry 94 L 11/23/17 18:00 11/23/17 19:00 11/23/17 19:41 Temperature Pulse Rate 64 70 Respiratory Rate Blood Pressure Pulse Oximetry 97 11/23/17 19:42 11/23/17 20:00 11/23/17 22:58 Temperature 97.8 F Pulse Rate 62 72 60 Respiratory Rate 17 18 Blood Pressure 134/60 Pulse Oximetry 98 11/23/17 23:00 11/24/17 00:00 11/24/17 00:14 Temperature Pulse Rate 61 67 65 Respiratory Rate 18 16 Blood Pressure 110/52 L Pulse Oximetry 97 11/24/17 01:00 11/24/17 02:00 11/24/17 03:00 Temperature Pulse Rate 72 60 61 Respiratory Rate Blood Pressure Pulse Oximetry 11/24/17 04:00 11/24/17 05:12 11/24/17 06:00 Temperature 99.4 F Pulse Rate 60 67 61 Respiratory Rate 20 17 Blood Pressure 122/52 L Pulse Oximetry 93 L 11/24/17 07:39 11/24/17 07:40 Temperature Pulse Rate 61 Respiratory Rate 19 Blood Pressure Pulse Oximetry 92 L Intake & Output 0911/24/17 11/24/17 18:59 06:59 18:59 Intake Total 1480 / 1480 240 / 240 Output Total 150 / 150 800 / 800 Balance 1330 / 1330 -560 / -560 Weight 91 kg Intake: IV 1000 / 1000 NS Inj 1,000 ML @ 125 mls/hr IV 1000 / 1000 .CONT .Q8H BECKY Rx#:[id number] Oral 480 / 480 240 / 240 Output: Urine 150 / 150 800 / 800 Other: # Incontinent Voids 2 2 Narrative: GENERAL: Well-developed well-nourished. In no acute distress. NECK: No carotid bruits. No JVD. CARDIOVASCULAR: Irregular rate and rhythm. No murmur appreciated. RESPIRATORY: No accessory muscle use. Clear to auscultation. Breath sounds equal bilaterally. MUSCULOSKELETAL: No clubbing or cyanosis. No edema. NEUROLOGICAL: Awake and alert. Normal speech. - Urinary Catheter Management Indwelling Temp Sensing Catheter Cath placed during this visit: yes, but has since been removed by the nurse Reason for continuing: Decision to DC catheter Insertion date: 11/21/17 Insertion time: 13:50 Removal date: 11/21/17 Removal time: 21:30 Assessment and Plan - Assessment (1) Aortic stenosis Code(s): I35.0 - Nonrheumatic aortic (valve) stenosis Status: Acute - Plan 81-year-old gentleman with a history of severe who presented for TAVR 11/21 clinically doing well, monitor groin wound new BBB with pacemaker placed yesterday taking asa and plavix atrial fibrillation- rate controlled. will need to resume warfarin upon discharge ambulate as tolerated likely will be discharged today - Attending Attestation looks good today ambulate DC home planning for this afternoon plavix and coumadin on DC INR next sun FU DHG FeSO4 script continue prior medical regimen monitor groin at home
[2017-11-24 14:57] VITALS: BP 131/57; TEMP 98.2; O2SAT 97
[2017-11-24 15:34] VITALS: PULSE 62; RESP 20
--- NOTE | 2017-11-25 12:35 | ECG ---
Date Performed: 11/23/2017 Time Performed: 12:18:48 PTAGE: 81 years EKG: ATRIAL FIBRILLATION MARKED LEFT AXIS DEVIATION LEFT BUNDLE BRANCH BLOCK ABNORMAL ECG Pacer rhythm is noted Compared to PREVIOUS TRACING rate has slowed, pacemaker rhythm noted PREVIOUS TRACIN11/22/2017 05 .21 DOCTOR: hSa Martell Interpretating Date/Time 11/25/2017 12:33:05
--- NOTE | 2017-11-25 12:36 | ECG ---
Date Performed: 11/24/2017 Time Performed: 12:48:48 PTAGE: 81 years EKG: Ventricular pacing Pacemaker rhythm - Underlying rhythm appears to be atrial fibrillation w hich is unchanged from prior tracing Abnormal ECG PREVIOUS TRACING : 11/23/2017 12.53 DOCTOR: Sha Martell Interpretating Date/Time 11/25/2017 12:33:33
--- NOTE | 2017-11-25 13:10 | ECG ---
Date Performed: 11/23/2017 Time Performed: 12:53:24 PTAGE: 81 years EKG: Atrial fibrillation Demand pacing. Left axis deviation Left bundle branch block Possible in ferior infarct - age undetermined Abnormal ECG PREVIOUS TRACING : 11/23/2017 12.18 Since the previous tracing, no significant change noted DOCTOR: Sha Martell Interpretating Date/Time 11/25/2017 13:08:06
== END 2017-11-24 16:03 | disposition home or self-care (01) ==
LOC: HSDI 09:10 → HCVI 09:14 → HCPC 11-22 11:11
PROVIDERS: ADMIT Internal Medicine; ATTEND Internal Medicine
PROC: TAVRHYB (ICD-10-PCS; 2017-11-21 13:29)

== ENCOUNTER 2018-01-08 19:36 | Inpatient (IN) ==
--- NOTE | 2018-01-08 20:38 | ED ---
HPI General Chief complaint: Recheck/Abnormal Lab/Rx Stated complaint: Poss TB Time Seen by Provider: 01/08/18 20:13 History of Present Illness HPI narrative: Patient is a 82-year-old male presents emergency department from rehab facility for evaluation of possible tuberculosis. An intake chest x-ray was performed which showed the patient had a right-sided middle lobe infiltrate and radiologist said could not exclude tuberculosis. The patient was brought here for further evaluation. The patient was brought to rehabilitation because he recently had a valve replaced as well as some stents to coronary arteries. Patient does endorse some intermittent cough but has a history of chronic COPD and shortness of breath. He is on oxygen chronically. Patient states that a few weeks ago he did notice some hemoptysis. He is also endorse some night sweats but denies any weight loss. No exposure history, has not traveled abroad and has not been in skilled nursing. Symptoms mild, duration unknown, associated signs and symptoms in context as above. Related Data Home Medications Medication Instructions Recorded Confirmed albuterol sulfate 2.5 mg INHALATION Q4H PRN 11/21/17 01/09/18 atorvastatin [Lipitor] 80 mg PO DAILY 11/21/17 01/09/18 clonazepam 1 mg PO TID 11/21/17 01/09/18 clopidogrel [Plavix] 75 mg PO DAILY 11/21/17 01/09/18 fluoxetine 20 mg PO DAILY 11/21/17 01/09/18 furosemide 20 mg PO DAILY 11/21/17 01/09/18 levothyroxine 50 mcg PO DAILY 11/21/17 01/09/18 losartan 100 mg PO DAILY 11/21/17 01/09/18 montelukast 10 mg PO QPM 11/21/17 01/09/18 warfarin [Coumadin] 5 mg PO DAILY 11/21/17 01/09/18 cefdinir 300 mg PO Q12H 01/09/18 01/09/18 fluticasone-vilanterol [Breo 1 inh INHALATION DAILY 01/09/18 01/09/18 Ellipta] metoprolol tartrate 75 mg PO BID 01/09/18 01/09/18 montelukast 10 mg PO QPM 01/09/18 01/09/18 omeprazole 20 mg PO DAILY 01/09/18 01/09/18 prednisone 20 mg PO BID 01/09/18 01/09/18 Previous Rx's Medication Instructions Recorded ferrous sulfate [FeroSul] 325 mg PO DAILY #30 tab 11/24/17 Allergies Allergy/AdvReac Type Severity Reaction Status Date / Time Sulfa (Sulfonamide Allergy Rash Verified 01/09/18 00:55 Antibiotics) tetracycline Allergy Abdominal Verified 01/09/18 00:55 Pain Review of Systems ROS: all other systems reviewed are negative PMFSH Social History Social History Substance History: No History of Abuse Second Hand Smoke Exposure: No Smoking Status: Never smoker How Often Do You Have a Drink Containing Alcohol: 2 to 3 times a week Recent Travel in [facility] within the Last 8 Weeks: No Recent Out of Country Travel within the Last 8 Weeks: No Exam Narrative Exam Narrative: GENERAL: Well-developed well-nourished, no obvious distress. SKIN: Focused skin assessment warm/dry. HEAD: Atraumatic. Normocephalic. EYES: Pupils equal and round. No scleral icterus. No injection or drainage. ENT: No nasal bleeding or discharge. Mucous membranes pink and moist. NECK: Trachea midline. No JVD. CARDIOVASCULAR: Regular rate and rhythm. No murmur appreciated. RESPIRATORY: No accessory muscle use. There are some right sided fine rales in the midline. Left lung is clear. Good air entry bilaterally. Breath sounds equal bilaterally. GASTROINTESTINAL: Abdomen soft, non-tender, nondistended. Hepatic and splenic margins not palpable. MUSCULOSKELETAL: No obvious deformities. No clubbing. No cyanosis. No edema. NEUROLOGICAL: Awake and alert. No obvious cranial nerve deficits. Motor grossly within normal limits. Normal speech. PSYCHIATRIC: Appropriate mood and affect; insight and judgment normal. Course Initial Documented Vital Signs Pulse Oximetry 98 01/08/18 22:02 Last Documented Vital Signs Temperature 97.9 F 01/10/18 12:00 Pulse Rate 78 01/10/18 12:00 Respiratory Rate 17 01/10/18 12:00 Blood Pressure 127/86 01/10/18 12:00 Pulse Oximetry 98 01/10/18 12:00 Medical Decision Making MDM Narrative Medical decision making narrative: Patient room in the emergency department, he appears pretty well however does have some chronic needs, he is somewhat tachypneic and mildly tachycardic. White count normal but the patient does have a neutrophilia. Chest x-ray was really not of benefit here is a very poor inspiratory film. A CT chest without contrast was performed which does show an interstitial pattern but the read also includes hilar lymphadenopathy of unknown source which appears as though chronic for the patient. He also does have some pleural effusions. Neither the probably the patient's symptoms are from chronic congestive heart failure and have ordered a small dose of Lasix however given the concern for tuberculosis his recent hemoptysis and night sweats that he endorses to me think that he needs to remain on isolation until he is cleared by tb testing to return to his rehabilitation. Patient will be discussed with Dr. Hampton for admission. Medical Screen Exam Complete: Yes Emergency Medical Condition: Yes Lab Data Result diagrams: 01/10/18 08:13 01/10/18 08:13 Lab Results 01/08/18 01/08/18 01/08/18 Range/Units 04:20 22:40 22:40 WBC 12.3 H (4.0-11.0) th/mm3 RBC 3.72 L (4.50-5.90) mil/mm3 Hgb 11.8 L (13.0-17.0) gm/dL Hct 35.6 L (39.0-51.0) % MCV 95.6 (80.0-100.0) fL MCH 31.8 (27.0-34.0) pg MCHC 33.2 (32.0-36.0) % RDW 16.6 (11.6-17.2) % Plt Count 249 (150-450) th/mm3 MPV 7.8 (7.0-11.0) fL Prelim Diff (Auto) Slide review pending Neut % (Auto) 83.9 H (16.0-70.0) % Lymph % (Auto) 5.6 L (9.0-44.0) % Mathews % (Auto) 9.8 H (0.0-8.0) % Eos % (Auto) 0.4 (0.0-4.0) % Baso % (Auto) 0.3 (0.0-2.0) % Neut # (Auto) 10.3 H (1.8-7.7) th/mm3 Lymph # (Auto) 0.7 L (1.0-4.8) th/mm3 Mathews # (Auto) 1.2 H (0.0-0.9) th/mm3 Eos # (Auto) 0.1 (0.0-0.4) th/mm3 Baso # (Auto) 0.0 (0.0-0.2) th/mm3 WBC Differential . Diff Scan Auto diff confirmed Differential Comment . Platelet Estimate Normal (Normal) Platelet Morphology Normal (Normal) Ovalocytes 1+ H (None) PT 21.4 H (9.8-11.6) sec INR 2.1 Ratio Sodium 136 (136-145) meq/L Potassium 4.9 (3.5-5.1) meq/L Chloride 99 (98-107) meq/L Carbon Dioxide 32.3 H (21.0-32.0) meq/L Anion Gap 5 (5-15) meq/L BUN 18 (7-18) mg/dL Creatinine 0.75 (0.60-1.30) mg/dL Estimated GFR Greater than 89 (>89) mL/min Random Glucose 103 (74-106) mg/dL Calcium 8.5 (8.5-10.1) mg/dL Total Bilirubin 1.0 (0.2-1.0) mg/dL AST 35 (15-37) U/L ALT 30 (12-78) U/L Alkaline Phosphatase 108 (45-117) U/L Total Protein 6.9 (6.4-8.2) g/dL Albumin 3.0 L (3.4-5.0) g/dL 01/10/18 01/10/18 01/10/18 Range/Units 08:13 08:13 08:13 WBC 13.8 H (4.0-11.0) th/mm3 RBC 3.71 L (4.50-5.90) mil/mm3 Hgb 11.7 L (13.0-17.0) gm/dL Hct 35.4 L (39.0-51.0) % MCV 95.4 (80.0-100.0) fL MCH 31.6 (27.0-34.0) pg MCHC 33.1 (32.0-36.0) % RDW 16.7 (11.6-17.2) % Plt Count 250 (150-450) th/mm3 MPV 8.0 (7.0-11.0) fL Prelim Diff (Auto) Neut % (Auto) 81.1 H (16.0-70.0) % Lymph % (Auto) 9.2 (9.0-44.0) % Mathews % (Auto) 7.9 (0.0-8.0) % Eos % (Auto) 1.5 (0.0-4.0) % Baso % (Auto) 0.3 (0.0-2.0) % Neut # (Auto) 11.2 H (1.8-7.7) th/mm3 Lymph # (Auto) 1.3 (1.0-4.8) th/mm3 Mathews # (Auto) 1.1 H (0.0-0.9) th/mm3 Eos # (Auto) 0.2 (0.0-0.4) th/mm3 Baso # (Auto) 0.0 (0.0-0.2) th/mm3 WBC Differential . Diff Scan Differential Comment Auto diff final Platelet Estimate (Normal) Platelet Morphology (Normal) Ovalocytes (None) PT 15.9 H (9.8-11.6) sec INR 1.6 Ratio Sodium 139 (136-145) meq/L Potassium 4.0 D (3.5-5.1) meq/L Chloride 97 L (98-107) meq/L Carbon Dioxide 33.6 H (21.0-32.0) meq/L Anion Gap 8 (5-15) meq/L BUN 17 (7-18) mg/dL Creatinine 0.91 (0.60-1.30) mg/dL Estimated GFR 79 L (>89) mL/min Random Glucose 84 (74-106) mg/dL Calcium 8.6 (8.5-10.1) mg/dL Total Bilirubin (0.2-1.0) mg/dL AST (15-37) U/L ALT (12-78) U/L Alkaline Phosphatase (45-117) U/L Total Protein (6.4-8.2) g/dL Albumin (3.4-5.0) g/dL Imaging Data Radiologist's impression: Chest X-Ray 01/08/18 20:14 CONCLUSION: Hypoinflation with bibasilar atelectasis. Chest CT 01/08/18 23:03 CONCLUSION: 1. Cardiomegaly. The patient is status post sternotomy. There is a transaortic valve replacement present. There is a 2.6 cm metallic density at the right ventricular apex without pacer lead seen. 2. Underlying chronic appearing interstitial disease. 3. Increased density at the bases likely related to underlying atelectasis or consolidation. There are mild bilateral pleural effusions being worse on the left. 4. Nonspecific prominent lymph nodes in the mediastinum and hilar regions. These were present previously. 5. Gallstone in a contracted gallbladder. Discharge Plan Discharge Disposition Patient Disposition: 30 Still Patient Discharge Details Diagnosis: Hemoptysis, Pleural effusion Physicians Team ED Provider: Juan Miguel Caraballo Primary Care Provider: NON STAFF,PROVIDER Attending Provider: Mckenzie Zambrano Other Providers: [facility],Insurance ; [facility],Agency ; Faith Vaughn Discharge Interventions Interventions: ED Discharge Assessment Last Done: 01/09/18 11:23 Status ED Status: Left Department Discharge Information Discharge Date/Time: 01/09/18 10:10
--- NOTE | 2018-01-08 20:41 | XR ---
EXAM DATE: 01/08/2018 8:14 PM EDT AGE/SEX: 82 years / Male INDICATIONS: Chest pain. Patient had a chest x-ray done at rehab facility that came back positive to r TB. CLINICAL DATA: This is the patient's initial encounter. Patient reports that signs and symptoms have been present for 1 day and indicates a pain score of 0/10. MEDICAL/SURGICAL HISTORY: . Hypertension. Cardiovascular disease. . CABG. Coronary artery monie nt. COMPARISON: No prior exams available for comparison. FINDINGS: A single AP view of the chest demonstrates low lung volumes. By basilar patchy parenchymal opacities. No discrete effusions. Heart is at the upper limits of normal in terms of size. Median sternotomy wi res. Bony structures are otherwise unremarkable. CONCLUSION: Hypoinflation with bibasilar atelectasis. Electronically signed by: Trace Xavier MD 01/08/2018 8:39 PM EDT
[2018-01-08 23:01] LABS: Baso % (Auto) 0.3 % (0.0-2.0); Eos # (Auto) 0.1 th/mm3 (0.0-0.4); Eos % (Auto) 0.4 % (0.0-4.0); Hematocrit 35.6 % (39.0-51.0); Hemoglobin 11.8 gm/dL (13.0-17.0); Lymph # (Auto) 0.7 th/mm3 (1.0-4.8); Lymph % (Auto) 5.6 % (9.0-44.0); Mean Corpuscular HGB Conc 33.2 % (32.0-36.0); Mean Corpuscular Hemoglobin 31.8 pg (27.0-34.0); Mean Corpuscular Volume 95.6 fL (80.0-100.0); Mean Platelet Volume 7.8 fL (7.0-11.0); Mono # (Auto) 1.2 th/mm3 (0.0-0.9); Mono % (Auto) 9.8 % (0.0-8.0); Neut # (Auto) 10.3 th/mm3 (1.8-7.7); Neut % (Auto) 83.9 % (16.0-70.0); Platelet Count 249 th/mm3 (150-450); Red Blood Count 3.72 mil/mm3 (4.50-5.90); Red Cell Distribution Width 16.6 % (11.6-17.2); White Blood Count 12.3 th/mm3 (4.0-11.0)
[2018-01-08 23:20] LABS: Alanine Aminotransferase 30 U/L (12-78); Alkaline Phosphatase 108 U/L (45-117); Total Protein 6.9 g/dL (6.4-8.2)
[2018-01-08 23:26] LABS: Anion Gap 5 meq/L (5-15); Aspartate Aminotransferase 35 U/L (15-37); Blood Urea Nitrogen 18 mg/dL (7-18); Calcium 8.5 mg/dL (8.5-10.1); Carbon Dioxide 32.3 meq/L (21.0-32.0); Chloride 99 meq/L (98-107); Glomerular Filtration Rate Greater Than 89 mL/min (>89); Glucose,Random 103 mg/dL (74-106); Sodium 136 meq/L (136-145)
[2018-01-08 23:33] LABS: Potassium 4.9 meq/L (3.5-5.1)
[2018-01-08 23:47] LABS: Platelet Estimate Normal (Normal); Platelet Morphology Normal (Normal)
[2018-01-08 23:48] LABS: Ovalocytes 1+
--- NOTE | 2018-01-09 00:03 | CT ---
EXAM DATE: 01/08/2018 11:14 PM EDT AGE/SEX: 82 years / Male INDICATIONS: Shortness of breath, cough and hemoptysis. CLINICAL DATA: This is the patient's initial encounter. Patient reports that signs and symptoms have been present for 1 day and indicates a pain score of 0/10. MEDICAL/SURGICAL HISTORY: Chronic obstructive pulmonary disease. Hypertension. . Aortic valve repl acement. RADIATION DOSE: 16.67 CTDI (mGy) COMPARISON: [facility] [place], [place] CHEST TRANSAORTIC VALVE REP, 11/12/2017. . TECHNIQUE: Multiple contiguous axial images were obtained through the chest without contrast. Image s were obtained in suspended respiration using multiple row detector helical technique. Using automa angelica exposure control and adjustment of the mA and/or kV according to patient size, radiation dose was kept as low as reasonably achievable to obtain optimal diagnostic quality images. DICOM format imag e data is available electronically for review and comparison. FINDINGS: Lungs: There is diffuse interstitial disease being worse at the periphery of the lungs. There is pat elke alveolar density seen at the bases. Interstitial disease was present previously likely represents chronic underlying interstitial disease. The patchy areas of atelectasis at the bases represent some degree of superimposed consolidation or atelectasis. Mediastinum: The patient is status post sternotomy. The heart size is enlarged. The patient has a tr ansaortic valve replacement. Extensive calcifications are seen in the [place] coronary arteries. There is 2.6 cm metallic density seen in the right ventricular apex. Pacer leads are not seen connected to this. The central pulmonary arteries appear prominent which raises the possibility of pulmonary veno us hypertension. There are prominent lymph nodes seen in the mediastinum measuring up to 2.6 cm in th e precarinal region. Some of the enlargement of the hilar regions could be secondary to prominent lym ph nodes. Pleurae: There are mild bilateral pleural effusions being worse in the left. There is elevation of t he right hemidiaphragm. Axillae: Unremarkable. Bony Structures: Unremarkable. Miscellaneous: The examination was extended to include the upper abdomen, and both adrenal glands ar e normal in size and configuration. There is a calcified gallstone. There is a 8 cm right renal cyst. CONCLUSION: 1. Cardiomegaly. The patient is status post sternotomy. There is a transaortic valve replacement pre sent. There is a 2.6 cm metallic density at the right ventricular apex without pacer lead seen. 2. Underlying chronic appearing interstitial disease. 3. Increased density at the bases likely related to underlying atelectasis or consolidation. There a re mild bilateral pleural effusions being worse on the left. 4. Nonspecific prominent lymph nodes in the mediastinum and hilar regions. These were present previo usly. 5. Gallstone in a contracted gallbladder. Electronically signed by: Kolton Castillo MD 01/09/2018 12:02 AM EDT
[2018-01-09] MEDS ORDERED: Acetaminophen 325 MG Tablet PO PRN (03:04)
[2018-01-09] MEDS ORDERED: Bisacodyl 10 MG Supp RECTAL PRN (03:04)
[2018-01-09] MEDS ORDERED: Vancomycin Consult Pharmacy OTHER PRN (03:18)
[2018-01-09] MEDS ORDERED: Vancomycin Inj 1,000 MG in Sodium Chlor 0.9% Inj 250 ML IV.SIG ONE (03:20)
--- NOTE | 2018-01-09 03:24 | P.HP ---
History of Present Illness Service: [facility] Primary Care Physician: PROVIDER NON STAFF History of Present Illness: 82-year-old male with a past medical history significant for CAD status post recent stent placement, COPD, atrial fibrillation anticoagulated on Coumadin, CHF, status post TAVR 11/21, hypothyroidism and hypertension presents to the emergency department for the evaluation of possible tuberculosis. The patient was recently admitted to a rehab facility where an intake chest x-ray was performed which showed new mild left lower lobe opacities. Per radiologist read the differential considerations included atelectasis, edema or pneumonia or tuberculosis. The patient reports mild hemoptysis that occurred approximately 2 weeks ago. He denies any fever/chills. Denies night sweats or weight loss. No chest pain or shortness of breath. No abdominal pain. No nausea/vomiting/diarrhea. No lateralizing signs/symptoms. Review of Systems All other systems reviewed negative except as stated in HPI PMFSH - History History Provided By: Patient, Medical Record - Medical History Medical History: Medical History (Last Updated 01/09/18 @ 03:11 by Apolonia Hampton MD) COPD (chronic obstructive pulmonary disease) Coronary artery disease Hypertension Atrial fibrillation Hyperlipidemia Left bundle branch block (LBBB) - Surgical History Surgical History: Surgical History (Last Updated 01/09/18 @ 03:11 by Apolonia Hampton MD) Status post cardiac catheterization S/P TAVR (transcatheter aortic valve replacement) - Family History Family History: Family History (Last Updated 01/09/18 @ 03:11 by Apolonia Hampton MD) Other Family history normal - Tobacco History Second Hand Smoke Exposure: No Tobacco Use In Past 30 Days: No Smoking Status: Never smoker - Alcohol History How Often Do You Have a Drink Containing Alcohol: Never - Substance Use History Substance History: No History of Abuse - Travel History Recent Travel in the [place] Within the Last 8 Weeks: No Recent Travel Out of the Country Within the Last 8 Weeks: No - Immunization History Tetanus Immunization: <5 Years Medications and Allergies Active Medications: Active Medications Sodium Chloride (Ns Flush) 2 ml IV.FLUSH UNSCH PRN PRN Reason: FLUSH AFTER USING IV ACCESS Allergies Allergy/AdvReac Type Severity Reaction Status Date / Time Sulfa (Sulfonamide Allergy Rash Verified 01/09/18 00:55 Antibiotics) tetracycline Allergy Abdominal Verified 01/09/18 00:55 Pain Home Medications Medication Instructions Recorded Confirmed Type albuterol sulfate 2.5 mg INHALATION Q4H PRN 11/21/17 01/09/18 History atorvastatin [Lipitor] 80 mg PO DAILY 11/21/17 01/09/18 History clonazepam 1 mg PO TID 11/21/17 11/21/17 History clopidogrel [Plavix] 75 mg PO DAILY 11/21/17 11/21/17 History fluoxetine 20 mg PO DAILY 11/21/17 11/21/17 History furosemide 20 mg PO DAILY 11/21/17 01/09/18 History levothyroxine 50 mcg PO DAILY 11/21/17 01/09/18 History losartan 100 mg PO DAILY 11/21/17 01/09/18 History montelukast 10 mg PO QPM 11/21/17 01/09/18 History warfarin [Coumadin] 5 mg PO DAILY 11/21/17 01/09/18 History cefdinir 300 mg PO Q12H 01/09/18 01/09/18 History fluticasone-vilanterol [Breo 1 inh INHALATION DAILY 01/09/18 01/09/18 History Ellipta] metoprolol tartrate 75 mg PO BID 01/09/18 01/09/18 History montelukast 10 mg PO QPM 01/09/18 01/09/18 History omeprazole 20 mg PO DAILY 01/09/18 01/09/18 History prednisone 20 mg PO BID 01/09/18 01/09/18 History Exam Vital signs: Vital Signs 01/08/18 22:02 01/08/18 22:30 Temperature 98.9 F Pulse Rate 104 H Respiratory Rate 28 H Blood Pressure 156/89 H Pulse Oximetry 98 97 Narrative: Gen.: No acute distress Head: Normocephalic. Atraumatic. EENT: Pupils equal round and reactive to light. Nose without drainage. Airway intact. Throat without injection. Cardiovascular: Regular rate and rhythm. No murmurs, rubs or gallops. Respiratory: Lungs clear to auscultation bilaterally. No wheezes or rhonchi. Abdomen: Soft, nontender, nondistended. No peritoneal signs. Musculoskeletal: No gross deformities. No edema. Skin: No obvious rashes or erythema. Neuro: Sensory and motor grossly intact. Cranial nerves II through XII grossly intact. Results - Labs CBC & Chem 7: 01/08/18 22:40 01/08/18 22:40 Labs: Laboratory Results - last 24 hr 01/08/18 01/08/18 22:40 22:40 WBC 12.3 H RBC 3.72 L Hgb 11.8 L Hct 35.6 L MCV 95.6 MCH 31.8 MCHC 33.2 RDW 16.6 Plt Count 249 MPV 7.8 Prelim Diff (Auto) Slide review pending Neut % (Auto) 83.9 H Lymph % (Auto) 5.6 L [place] % (Auto) 9.8 H Eos % (Auto) 0.4 Baso % (Auto) 0.3 Neut # (Auto) 10.3 H Lymph # (Auto) 0.7 L [place] # (Auto) 1.2 H Eos # (Auto) 0.1 Baso # (Auto) 0.0 WBC Differential . Diff Scan Auto diff confirmed Differential Comment . Platelet Estimate Normal Platelet Morphology Normal Ovalocytes 1+ H Sodium 136 Potassium 4.9 Chloride 99 Carbon Dioxide 32.3 H Anion Gap 5 BUN 18 Creatinine 0.75 Estimated GFR Greater than 89 Random Glucose 103 Calcium 8.5 Total Bilirubin 1.0 AST 35 ALT 30 Alkaline Phosphatase 108 Total Protein 6.9 Albumin 3.0 L - Imaging Impressions Chest X-Ray 01/08/18 20:14 CONCLUSION: Hypoinflation with bibasilar atelectasis. Chest CT 01/08/18 23:03 CONCLUSION: 1. Cardiomegaly. The patient is status post sternotomy. There is a transaortic valve replacement present. There is a 2.6 cm metallic density at the right ventricular apex without pacer lead seen. 2. Underlying chronic appearing interstitial disease. 3. Increased density at the bases likely related to underlying atelectasis or consolidation. There are mild bilateral pleural effusions being worse on the left. 4. Nonspecific prominent lymph nodes in the mediastinum and hilar regions. These were present previously. 5. Gallstone in a contracted gallbladder. Caprini VTE Risk Assessment Caprini VTE Risk Assessment: Moderate/High Risk (score >= 2) Caprini Risk Assessment Model: Point Value = 1 Point Value = 2 Point Value = 3 Point Value = 5 Age 41-60 Minor surgery BMI > 25 kg/m2 Swollen legs Varicose veins or History of unexplained or recurrent spontaneous Oral contraceptives or hormone replacement Sepsis (< 1 month) Serious lung disease, including pneumonia (< 1 month) Abnormal pulmonary function Acute myocardial infarction Congestive heart failure (< 1 month) History of inflammatory bowel disease Medical patient at bed rest Age 61-74 Arthroscopic surgery Major open surgery (> 45 min) Laparoscopic surgery (> 45 min) Malignancy Confined to bed (> 72 hours) Immobilizing plaster cast Central venous access Age >= 75 History of VTE Family history of VTE Factor V Leiden Prothrombin [id number] Lupus anticoagulant Anticardiolipin antibodies Elevated serum homocysteine Heparin-induced thrombocytopenia Other congenital or acquired thrombophilia Stroke (< 1 month) Elective arthroplasty Hip, pelvis, or leg fracture Acute spinal cord injury (< 1 month) Prophylaxis Regimen: Total Risk Factor Score Risk Level Prophylaxis Regimen 0-1 Low Early ambulation 2 Moderate Order ONE of the following: *Sequential Compression Device (SCD) *Heparin 5000 units SQ BID 3-4 Higher Order ONE of the following medications: *Heparin 5000 units SQ TID *Enoxaparin/Lovenox 40 mg SQ daily (WT < 150 kg, CrCl > 30 mL/min) *Enoxaparin/Lovenox 30 mg SQ daily (WT < 150 kg, CrCl > 10-29 mL/min) *Enoxaparin/Lovenox 30 mg SQ BID (WT < 150 kg, CrCl > 30 mL/min) AND/OR *Sequential Compression Device (SCD) 5 or more Highest Order ONE of the following medications: *Heparin 5000 units SQ TID (Preferred with Epidurals) *Enoxaparin/Lovenox 40 mg SQ daily (WT < 150 kg, CrCl > 30 mL/min) *Enoxaparin/Lovenox 30 mg SQ daily (WT < 150 kg, CrCl > 10-29 mL/min) *Enoxaparin/Lovenox 30 mg SQ BID (WT < 150 kg, CrCl > 30 mL/min) AND *Sequential Compression Device (SCD) Assessment and Plan - Plan Assessment/plan: 1. Abnormal chest x-ray Radiologist stated differential included possible pneumonia but cannot exclude tuberculosis QuantiFERON pending Droplet precautions Chest CT done in the emergency department significant for increased density at the bases, atelectasis versus consolidation with previously present prominent mediastinal and hilar lymph nodes Vanc/Zosyn to cover for possible HCAP as patient with leukocytosis with left shift 2. Coronary artery disease Status post cardiac catheterization with stent placement Continue Plavix 3. Status post TAVR Plan for rehab on discharge PT 4. Atrial fibrillation Continue anticoagulation with Coumadin Continue metoprolol INR pending 5. COPD Continue home Brio and prednisone 6. Hypothyroidism Continue home Synthroid 7. Hypertension Continue home losartan FEN Heart healthy diet Electrolytes: Monitor and replete as needed Coumadin Case management consulted to assist with DC planning
[2018-01-09 04:42] LABS: INR 2.1 Ratio; Prothrombin Time 21.4 sec (9.8-11.6)
[2018-01-09] MEDS ORDERED: Vancomycin Inj 2,000 MG in Sodium Chlor 0.9% Inj 500 ML IV.SIG ONE (05:00)
[2018-01-09] MEDS: Piperacil/Tazo 4.5 GM Premix 4.5 GM/100 ML BAG IV.SIG SCH ×4 (05:13→23:01)
[2018-01-09] MEDS: Levothyroxine 50 MCG Tablet PO SCH (05:57)
[2018-01-09] MEDS: Metoprolol Tartrate 25 MG Tablet PO SCH ×2 (08:28→23:01)
[2018-01-09] MEDS: FLUoxetine 20 MG Capsule PO SCH (08:28)
[2018-01-09] MEDS: Pantoprazole Sodium 20 MG DR Tablet PO SCH (08:29)
[2018-01-09] MEDS: predniSONE 20 MG Tablet PO SCH (08:29)
[2018-01-09] MEDS: Senna/Docusate Sodium 8.6/50 MG Tablet PO SCH ×2 (08:30→23:01)
[2018-01-09] MEDS: Ferrous Sulfate 325 MG Tablet PO SCH (08:31)
[2018-01-09] MEDS ORDERED: Furosemide 20 MG Tablet PO SCH (09:00)
--- NOTE | 2018-01-09 09:55 | ECG ---
Date Performed: 01/08/2018 Time Performed: 22:33:17 PTAGE: 82 years EKG: ATRIAL FIBRILLATION MARKED LEFT AXIS DEVIATION LEFT BUNDLE BRANCH BLOCK ABNORMAL ECG I monster ot accurately compare rhythm as prior EKG has artifact. PREVIOUS TRACING : 11/24/2017 12.48 DOCTOR: Francisco Javier Marte Interpretating Date/Time 01/09/2018 09:55:15
[2018-01-09] MEDS ORDERED: Influenza (Quadrivalent) Vaccine 0.5 ML Syringe IM ONE (12:00)
--- NOTE | 2018-01-09 14:18 | P.PNIM ---
Subjective Interval history: Patient states that he has not had any episodes of coughing up blood for the past 7 days. Reports breathing is better. He denies any active shortness of breath at this time. He never had chest pain. Denies any palpitation. He has denied any fevers or chills. Physical Exam Vital signs: Vital Signs 01/08/18 22:02 01/08/18 22:30 01/09/18 05:42 Temperature 98.9 F Pulse Rate 104 H 84 Respiratory Rate 28 H 18 Blood Pressure 156/89 H 142/74 H Pulse Oximetry 98 97 100 01/09/18 07:28 01/09/18 12:00 01/09/18 12:04 Temperature 97.7 F Pulse Rate 88 Respiratory Rate 18 Blood Pressure 145/75 H Pulse Oximetry 95 97 97 Intake & Output 01/08/18 01/09/18 01/09/18 18:59 06:59 18:59 Intake Total 100 / 100 350 / 350 Balance 100 / 100 350 / 350 Weight 117.934 kg Intake: IV 100 / 100 350 / 350 Zosyn 4.5 GM Premix 4.5 gm In 100 / 100 100 / 100 100 ml @ 200 mls/hr IV.SIG Q6H BECKY Rx#:[id number] Vancomycin Inj 2,000 MG In NS 250 / 250 Inj 500 ML @ 250 mls/hr IV.SIG ONCE ONE Rx#:[id number] Narrative: Gen.: No acute distress Head: Normocephalic. Atraumatic. Cardiovascular: Irregular rate and rhythm Respiratory: Bilateral crackles bases Abdomen: Soft, nontender, nondistended. Normoactive bowel sounds Musculoskeletal: No gross deformities. No edema. Skin: Vitiligo changes Neuro: Alert and oriented x4. Results - Labs CBC & Chem 7: 01/08/18 22:40 01/08/18 22:40 Laboratory Results - last 24 hr 01/08/18 01/08/18 01/08/18 04:20 22:40 22:40 WBC 12.3 H RBC 3.72 L Hgb 11.8 L Hct 35.6 L MCV 95.6 MCH 31.8 MCHC 33.2 RDW 16.6 Plt Count 249 MPV 7.8 Prelim Diff (Auto) Slide review pending Neut % (Auto) 83.9 H Lymph % (Auto) 5.6 L [place] % (Auto) 9.8 H Eos % (Auto) 0.4 Baso % (Auto) 0.3 Neut # (Auto) 10.3 H Lymph # (Auto) 0.7 L [place] # (Auto) 1.2 H Eos # (Auto) 0.1 Baso # (Auto) 0.0 WBC Differential . Diff Scan Auto diff confirmed Differential Comment . Platelet Estimate Normal Platelet Morphology Normal Ovalocytes 1+ H PT 21.4 H INR 2.1 Sodium 136 Potassium 4.9 Chloride 99 Carbon Dioxide 32.3 H Anion Gap 5 BUN 18 Creatinine 0.75 Estimated GFR Greater than 89 Random Glucose 103 Calcium 8.5 Total Bilirubin 1.0 AST 35 ALT 30 Alkaline Phosphatase 108 Total Protein 6.9 Albumin 3.0 L - Imaging Impressions Chest X-Ray 01/08/18 20:14 CONCLUSION: Hypoinflation with bibasilar atelectasis. Chest CT 01/08/18 23:03 CONCLUSION: 1. Cardiomegaly. The patient is status post sternotomy. There is a transaortic valve replacement present. There is a 2.6 cm metallic density at the right ventricular apex without pacer lead seen. 2. Underlying chronic appearing interstitial disease. 3. Increased density at the bases likely related to underlying atelectasis or consolidation. There are mild bilateral pleural effusions being worse on the left. 4. Nonspecific prominent lymph nodes in the mediastinum and hilar regions. These were present previously. 5. Gallstone in a contracted gallbladder. Assessment and Plan - Plan 82-year-old white male with a history of chronic atrial fibrillation, CAD with previous cardiac catheterization with [facility] secondary to abnormal finding on chest x-ray to rule out tuberculosis. Patient does have a history of hemoptysis. 1. Abnormal chest x-ray -suspect healthcare associated pneumonia and bilateral pleural effusion status post TAVR Radiologist stated differential included possible pneumonia but cannot exclude tuberculosis QuantiFERON pending, MTub pending Droplet precautions Chest CT done in the emergency department significant for increased density at the bases, atelectasis versus consolidation with previously present prominent mediastinal and hilar lymph nodes Vanco/Zosyn to cover for possible healthcare associated pneumonia as patient with leukocytosis with left shift, repeat CBC in the morning. Patient also has bilateral pleural effusion -will continue with diuretics. Will consult pulmonary service for further evaluation. Wean oxygen as tolerated. 2. Coronary artery disease Status post cardiac catheterization with stent placement Continue Plavix, beta-shun 3. Status post TAVR Continue beta-shun physical therapy 4. Atrial fibrillation, chronic Continue anticoagulation with Coumadin Continue metoprolol Monitor INR 5. COPD, chronic and not in exacerbation Continue home prednisone 6. Hypothyroidism Continue home Synthroid 7. Hypertension, chronic essential Continue home losartan DVT prophylaxisCoumadin Consult physical therapy. Discharge Planning: residential facility when stable.
[2018-01-10] MEDS: Vancomycin Inj 1,750 MG in Sodium Chlor 0.9% Inj 500 ML IV.SIG SCH ×2 (00:15→17:56)
[2018-01-10] MEDS: Levothyroxine 50 MCG Tablet PO SCH (05:34)
[2018-01-10] MEDS: Piperacil/Tazo 4.5 GM Premix 4.5 GM/100 ML BAG IV.SIG SCH ×4 (05:34→21:30)
[2018-01-10 08:44] LABS: Baso % (Auto) 0.3 % (0.0-2.0); Eos # (Auto) 0.2 th/mm3 (0.0-0.4); Eos % (Auto) 1.5 % (0.0-4.0); Hematocrit 35.4 % (39.0-51.0); Hemoglobin 11.7 gm/dL (13.0-17.0); Lymph # (Auto) 1.3 th/mm3 (1.0-4.8); Lymph % (Auto) 9.2 % (9.0-44.0); Mean Corpuscular HGB Conc 33.1 % (32.0-36.0); Mean Corpuscular Hemoglobin 31.6 pg (27.0-34.0); Mean Corpuscular Volume 95.4 fL (80.0-100.0); Mono # (Auto) 1.1 th/mm3 (0.0-0.9); Mono % (Auto) 7.9 % (0.0-8.0); Neut # (Auto) 11.2 th/mm3 (1.8-7.7); Neut % (Auto) 81.1 % (16.0-70.0); Platelet Count 250 th/mm3 (150-450); Red Blood Count 3.71 mil/mm3 (4.50-5.90); Red Cell Distribution Width 16.7 % (11.6-17.2); White Blood Count 13.8 th/mm3 (4.0-11.0)
[2018-01-10 08:49] LABS: INR 1.6 Ratio; Prothrombin Time 15.9 sec (9.8-11.6)
[2018-01-10 09:12] LABS: Calcium 8.6 mg/dL (8.5-10.1); Carbon Dioxide 33.6 meq/L (21.0-32.0)
[2018-01-10] MEDS: predniSONE 20 MG Tablet PO SCH (10:15)
[2018-01-10] MEDS: Senna/Docusate Sodium 8.6/50 MG Tablet PO SCH ×2 (10:16→21:31)
[2018-01-10] MEDS: Pantoprazole Sodium 20 MG DR Tablet PO SCH (10:16)
[2018-01-10] MEDS: Metoprolol Tartrate 25 MG Tablet PO SCH ×2 (10:16→21:31)
[2018-01-10] MEDS: FLUoxetine 20 MG Capsule PO SCH (10:16)
[2018-01-10] MEDS: Ferrous Sulfate 325 MG Tablet PO SCH (10:17)
--- NOTE | 2018-01-10 14:14 | P.PNIM ---
Subjective Interval history: Patient states that he is feeling the same. Still having productive cough. No blood. Mild shortness of breath. No complaint of chest pain. No fevers or chills. States that his oral pathologist is Dr. Jiménez Physical Exam Vital signs: Vital Signs 01/09/18 16:00 01/09/18 17:54 01/09/18 20:00 Temperature 97.8 F 97.5 F L Pulse Rate 92 H 111 H Respiratory Rate 18 18 Blood Pressure 137/70 138/66 Pulse Oximetry 95 97 98 01/10/18 00:00 01/10/18 04:00 01/10/18 08:00 Temperature 97.9 F 97.8 F 97.9 F Pulse Rate 80 93 H 81 Respiratory Rate 18 17 17 Blood Pressure 147/67 H 139/80 143/68 H Pulse Oximetry 97 98 97 01/10/18 09:00 01/10/18 12:00 Temperature 97.9 F Pulse Rate 80 78 Respiratory Rate 17 Blood Pressure 127/86 Pulse Oximetry 98 Intake & Output 01/09/18 01/10/18 01/10/18 18:59 06:59 18:59 Intake Total 1410 / 1410 1617.5 / 1617.5 100 / 100 Output Total 600 / 600 600 / 600 Balance 810 / 810 1017.5 / 1017.5 100 / 100 Weight 115.747 kg Intake: IV 450 / 450 1257.5 / 1257.5 100 / 100 Zosyn 4.5 GM Premix 4.5 gm In 200 / 200 200 / 200 100 / 100 100 ml @ 200 mls/hr IV.SIG Q6H BECKY Rx#:[id number] Vancomycin Inj 1,750 MG In NS 517.5 / 517.5 Inj 500 ML @ 250 mls/hr IV.SIG Q18H BECKY Rx#:[id number] Vancomycin Inj 2,000 MG In NS 250 / 250 Inj 500 ML @ 250 mls/hr IV.SIG ONCE ONE Rx#:[id number] Oral 960 / 960 360 / 360 Output: Urine 600 / 600 600 / 600 Other: Date of Last Bowel Movement 01/08/18 Narrative: Gen.: No acute distress Head: Normocephalic. Atraumatic. Cardiovascular: Irregular rate and rhythm Respiratory: Bilateral crackles bases Abdomen: Soft, nontender, nondistended. Normoactive bowel sounds Musculoskeletal: No gross deformities. No edema. Skin: Vitiligo changes Neuro: Alert and oriented x4. Results - Labs CBC & Chem 7: 01/10/18 08:13 01/10/18 08:13 Laboratory Results - last 24 hr 01/10/18 01/10/18 01/10/18 08:13 08:13 08:13 WBC 13.8 H RBC 3.71 L Hgb 11.7 L Hct 35.4 L MCV 95.4 MCH 31.6 MCHC 33.1 RDW 16.7 Plt Count 250 MPV 8.0 Neut % (Auto) 81.1 H Lymph % (Auto) 9.2 [place] % (Auto) 7.9 Eos % (Auto) 1.5 Baso % (Auto) 0.3 Neut # (Auto) 11.2 H Lymph # (Auto) 1.3 [place] # (Auto) 1.1 H Eos # (Auto) 0.2 Baso # (Auto) 0.0 WBC Differential . Differential Comment Auto diff final PT 15.9 H INR 1.6 Sodium 139 Potassium 4.0 D Chloride 97 L Carbon Dioxide 33.6 H Anion Gap 8 BUN 17 Creatinine 0.91 Estimated GFR 79 L Random Glucose 84 Calcium 8.6 Assessment and Plan - Plan 82-year-old white male with a history of chronic atrial fibrillation, CAD with previous cardiac catheterization with stent placement [facility] secondary to abnormal finding on chest x-ray to rule out tuberculosis. Patient does have a history of hemoptysis. 1. Abnormal chest x-ray -suspect healthcare associated pneumonia and bilateral pleural effusion status post TAVR Radiologist stated differential included possible pneumonia but cannot exclude tuberculosis QuantiFERON still pending, MTub pending Droplet precautions Chest CT done in the emergency department significant for increased density at the bases, atelectasis versus consolidation with previously present prominent mediastinal and hilar lymph nodes Vanco/Zosyn to cover for possible healthcare associated pneumonia as patient with leukocytosis with left shift, repeat CBC today shows improvement. Patient also has bilateral pleural effusion -will continue with diuretics. Consult pulmonary service for further evaluation. Wean oxygen as tolerated. 2. Coronary artery disease Status post cardiac catheterization with stent placement Continue Plavix, beta-shun 3. Status post TAVR Continue beta-shun physical therapy 4. Atrial fibrillation, chronic Continue anticoagulation with Coumadin Continue metoprolol INR 1.6 today give extra 1 mg warfarin in addition to his home 5 mg. 5. COPD, chronic and not in exacerbation Continue home prednisone 6. Hypothyroidism Continue home Synthroid 7. Hypertension, chronic essential Continue home losartan DVT prophylaxisCoumadin Continue physical therapy. [facility].
--- NOTE | 2018-01-10 19:59 | MB ---
cc: Robin Kelly MD DATE: 01/10/2018 CHIEF COMPLAINT: Pneumonia, COPD. HISTORY OF PRESENT ILLNESS: Mr. Hurd is an 82-year-old male, had an outpatient chest x-ray revealing evidence of left lung infiltrate, hospitalized for pneumonia. The patient tells me he had shortness of breath upon presentation of mild degree, which is now better. He did have minor hemoptysis over a week ago, which has now resolved. He denies history of fever or chills. No anorexia. No weight loss. PAST MEDICAL HISTORY: COPD, hypertension, hyperlipidemia, atrial fibrillation, left bundle branch block, as well as history of coronary artery disease, history of TAVR placement. FAMILY HISTORY: Noncontributory. SOCIAL HISTORY: Long heavy smoking history, stopped smoking in March of this year. Does not drink any alcohol. No TB, no industrial exposure. FAMILY HISTORY: Noncontributory. SYSTEMS REVIEW: A 12-point review of systems as per HPI and past history, otherwise negative. MEDICATIONS: 1. Nebulized albuterol. 2. Montelukast. 3. Prednisone. 4. Metoprolol. 5. Breo Ellipta. 6. Coumadin. 7. Losartan. 8. Levothyroxine. 9. Lasix. 10. Fluoxetine. ALLERGIES: SULFA DRUGS, TETRACYCLINE. REVIEW OF SYSTEMS: A 12-point review of systems as per HPI and past history otherwise negative. PHYSICAL EXAMINATION: GENERAL: The patient is alert. VITAL SIGNS: Temperature 98.6, respirations 18, blood pressure 150/84. HEENT: Unremarkable. Eyes without icterus. NECK: Without adenopathy or thyroid enlargement. CHEST: Few scattered rhonchi bilaterally. CARDIAC: PMI distant. S1, S2 audible. No murmur. No rub. ABDOMEN: Lax, bowel sounds audible. EXTREMITIES: No clubbing, cyanosis or edema. SKIN: Normal. No lymphadenopathy. LABORATORY DATA: White count 12,000, hemoglobin 11, hematocrit 35, platelets 249,000. Sodium 136, potassium 4.5, BUN 18, creatinine 0.75. CT scan of the chest upon presentation with cardiomegaly and chronic interstitial change, increased densities at both lung bases, atelectatic change and/or infiltrate, nonspecific adenopathy. Gallstones are noted as well. IMPRESSION: 1. Pneumonia. 2. Chronic obstructive pulmonary disease. 3. Minor hemoptysis, resolved. 4. Atrial fibrillation. 5. Coronary artery disease. 6. Status post transcatheter aortic valve replacement. 7. Hypertension. 8. Hyperlipidemia. PLAN: The patient will be maintained on bronchodilator therapy, antibiotic therapy for possible underlying pneumonia. In view of his hemoptysis, bronchoscopy may be undertaken, which have been discussed and explained to the patient in detail. We will follow his course along with you and, depending on progress, proceed further. I do thank you for asking me to partake in Mr. Hurd' care. Robin Kelly MD WWW/ct , 04:19 PM , 04:29 PM
[2018-01-11] MEDS: Levothyroxine 50 MCG Tablet PO SCH (08:10)
[2018-01-11] MEDS: Piperacil/Tazo 4.5 GM Premix 4.5 GM/100 ML BAG IV.SIG SCH ×3 (08:16→19:26)
[2018-01-11 09:15] LABS: Baso % (Auto) 0.2 % (0.0-2.0); Eos # (Auto) 0.1 th/mm3 (0.0-0.4); Eos % (Auto) 0.9 % (0.0-4.0); Hematocrit 35.6 % (39.0-51.0); Hemoglobin 11.8 gm/dL (13.0-17.0); Lymph # (Auto) 1.2 th/mm3 (1.0-4.8); Mean Corpuscular HGB Conc 33.2 % (32.0-36.0); Mean Corpuscular Hemoglobin 31.6 pg (27.0-34.0); Mean Corpuscular Volume 95.2 fL (80.0-100.0); Mean Platelet Volume 7.8 fL (7.0-11.0); Mono # (Auto) 0.8 th/mm3 (0.0-0.9); Mono % (Auto) 6.5 % (0.0-8.0); Neut # (Auto) 10.2 th/mm3 (1.8-7.7); Neut % (Auto) 82.4 % (16.0-70.0); Platelet Count 247 th/mm3 (150-450); Red Blood Count 3.74 mil/mm3 (4.50-5.90); Red Cell Distribution Width 16.4 % (11.6-17.2); White Blood Count 12.3 th/mm3 (4.0-11.0)
[2018-01-11 09:30] LABS: INR 1.7 Ratio; Prothrombin Time 17.2 sec (9.8-11.6)
[2018-01-11 09:38] LABS: Calcium 8.6 mg/dL (8.5-10.1); Carbon Dioxide 35.7 meq/L (21.0-32.0); Potassium 3.6 meq/L (3.5-5.1)
[2018-01-11] MEDS: predniSONE 20 MG Tablet PO SCH (10:12)
[2018-01-11] MEDS: FLUoxetine 20 MG Capsule PO SCH (10:12)
[2018-01-11] MEDS: Metoprolol Tartrate 25 MG Tablet PO SCH ×2 (10:13→21:43)
[2018-01-11] MEDS: Pantoprazole Sodium 20 MG DR Tablet PO SCH (10:13)
[2018-01-11] MEDS: Ferrous Sulfate 325 MG Tablet PO SCH (10:13)
[2018-01-11] MEDS: Senna/Docusate Sodium 8.6/50 MG Tablet PO SCH ×2 (10:13→21:45)
[2018-01-11] MEDS: Azithromycin 250 MG Tablet PO SCH (10:14)
[2018-01-11] MEDS ORDERED: Pharmacy Ordered Lab Info OTHER ONE (11:45)
[2018-01-11] MEDS ORDERED: Lidocaine PF 1% Inj 5 ML Syringe OTHER ONE (14:20)
--- NOTE | 2018-01-11 14:53 | P.PN ---
Physical Exam Vital signs: Vital Signs 01/10/18 16:00 01/10/18 16:51 01/10/18 20:00 Temperature 98.3 F 97.5 F L Pulse Rate 88 80 Respiratory Rate 17 20 Blood Pressure 129/64 137/80 Pulse Oximetry 98 97 100 01/10/18 20:30 01/11/18 00:00 01/11/18 04:00 Temperature 97.5 F L 97.8 F Pulse Rate 82 84 Respiratory Rate 20 20 Blood Pressure 142/72 H 143/85 H Pulse Oximetry 96 96 99 01/11/18 07:54 01/11/18 10:20 01/11/18 11:24 Temperature 97.7 F 97.6 F Pulse Rate 76 80 Respiratory Rate 20 20 Blood Pressure 153/76 H 128/64 Pulse Oximetry 92 L 94 L 100 Intake & Output 01/10/18 01/11/18 01/11/18 18:59 06:59 18:59 Intake Total 1400 / 1400 797.5 / 797.5 200 / 200 Output Total 2500 / 2500 2640 / 2640 Balance -1100 / -1100 -1842.5 / -1842.5 200 / 200 Weight 114.89 kg Intake: IV 200 / 200 517.5 / 517.5 200 / 200 Zosyn 4.5 GM Premix 4.5 gm In 200 / 200 200 / 200 100 ml @ 200 mls/hr IV.SIG Q6H BECKY Rx#:[id number] Vancomycin Inj 1,750 MG In NS 517.5 / 517.5 Inj 500 ML @ 250 mls/hr IV.SIG Q18H BECKY Rx#:[id number] Oral 1200 / 1200 280 / 280 Output: Urine 2500 / 2500 2640 / 2640 Stool 0 / 0 Other: Date of Last Bowel Movement 01/10/18 01/10/18 01/10/18 # Bowel Movements 1 Narrative: Gen.: Pleasant elderly female, appears in no acute distress Head: Normocephalic. Atraumatic. Cardiovascular: Irregular rate and rhythm Respiratory: Bilateral crackles bases Abdomen: Soft, nontender, nondistended. Normoactive bowel sounds Musculoskeletal: No gross deformities. No edema. Skin: Vitiligo changes Neuro: Alert and oriented x4. Results - Labs CBC & Chem 7: 01/11/18 08:43 01/11/18 08:43 Laboratory Results - last 24 hr 10/26/18 10/26/18 10/26/18 06:53 08:43 08:43 WBC 12.3 H RBC 3.74 L Hgb 11.8 L Hct 35.6 L MCV 95.2 MCH 31.6 MCHC 33.2 RDW 16.4 Plt Count 247 MPV 7.8 Neut % (Auto) 82.4 H Lymph % (Auto) 10.0 [place] % (Auto) 6.5 Eos % (Auto) 0.9 Baso % (Auto) 0.2 Neut # (Auto) 10.2 H Lymph # (Auto) 1.2 [place] # (Auto) 0.8 Eos # (Auto) 0.1 Baso # (Auto) 0.0 WBC Differential . Differential Comment Auto diff final PT 17.2 H INR 1.7 Sodium Potassium Chloride Carbon Dioxide Anion Gap BUN Creatinine Estimated GFR POC Glucose 104 Random Glucose Calcium 01/11/18 08:43 WBC RBC Hgb Hct MCV MCH MCHC RDW Plt Count MPV Neut % (Auto) Lymph % (Auto) [place] % (Auto) Eos % (Auto) Baso % (Auto) Neut # (Auto) Lymph # (Auto) Dale # (Auto) Eos # (Auto) Baso # (Auto) WBC Differential Differential Comment PT INR Sodium 138 Potassium 3.6 Chloride 95 L Carbon Dioxide 35.7 H Anion Gap 7 BUN 16 Creatinine 0.97 Estimated GFR 74 L POC Glucose Random Glucose 84 Calcium 8.6 Assessment and Plan - Plan 82-year-old white male with a history of chronic atrial fibrillation, CAD with previous cardiac catheterization with stent placement sent from [facility] facility secondary to abnormal finding on chest x-ray to rule out tuberculosis. Patient does have a history of hemoptysis. 1. Abnormal chest x-ray -suspect healthcare associated pneumonia and bilateral pleural effusion status post TAVR Radiologist stated differential included possible pneumonia but cannot exclude tuberculosis QuantiFERON still pending, MTub pending Droplet precautions Chest CT done in the emergency department significant for increased density at the bases, atelectasis versus consolidation with previously present prominent mediastinal and hilar lymph nodes Vanco/Zosyn to cover for possible healthcare associated pneumonia as patient with leukocytosis with left shift, repeat CBC today shows improvement. Patient also has bilateral pleural effusion -will continue with diuretics. Consult pulmonary service for further evaluation. Patient underwent bronchoscopy by Dr Kelly on 01/11/18, will have results as OP Wean oxygen as tolerated. Will do home walk O2 test 2. Coronary artery disease Status post cardiac catheterization with stent placement Continue Plavix, beta-shun 3. Status post TAVR Continue beta-shun physical therapy 4. Atrial fibrillation, chronic Continue anticoagulation with Coumadin Continue metoprolol INR 1.6 today give extra 1 mg warfarin in addition to his home 5 mg. 5. COPD, chronic and not in exacerbation Continue home prednisone 6. Hypothyroidism Continue home Synthroid 7. Hypertension, chronic essential Continue home losartan DVT prophylaxisCoumadin Continue physical therapy. Discharge Planning: PT recommends home without PT Per Dr Robin ledezma may DC tomorrow. Home walk O2 test to eval for need of O2 at home
--- NOTE | 2018-01-11 15:03 | P.PN ---
Subjective Interval history: alert no SOB at rest no hemoptysis Physical Exam Vital signs: Vital Signs 01/10/18 16:00 01/10/18 16:51 01/10/18 20:00 Temperature 98.3 F 97.5 F L Pulse Rate 88 80 Respiratory Rate 17 20 Blood Pressure 129/64 137/80 Pulse Oximetry 98 97 100 01/10/18 20:30 01/11/18 00:00 01/11/18 04:00 Temperature 97.5 F L 97.8 F Pulse Rate 82 84 Respiratory Rate 20 20 Blood Pressure 142/72 H 143/85 H Pulse Oximetry 96 96 99 01/11/18 07:54 01/11/18 10:20 01/11/18 11:24 Temperature 97.7 F 97.6 F Pulse Rate 76 80 Respiratory Rate 20 20 Blood Pressure 153/76 H 128/64 Pulse Oximetry 92 L 94 L 100 Intake & Output 01/10/18 01/11/18 01/11/18 18:59 06:59 18:59 Intake Total 1400 / 1400 797.5 / 797.5 200 / 200 Output Total 2500 / 2500 2640 / 2640 Balance -1100 / -1100 -1842.5 / -1842.5 200 / 200 Weight 114.89 kg Intake: IV 200 / 200 517.5 / 517.5 200 / 200 Zosyn 4.5 GM Premix 4.5 gm In 200 / 200 200 / 200 100 ml @ 200 mls/hr IV.SIG Q6H BECKY Rx#:[id number] Vancomycin Inj 1,750 MG In NS 517.5 / 517.5 Inj 500 ML @ 250 mls/hr IV.SIG Q18H BECKY Rx#:[id number] Oral 1200 / 1200 280 / 280 Output: Urine 2500 / 2500 2640 / 2640 Stool 0 / 0 Other: Date of Last Bowel Movement 01/10/18 01/10/18 01/10/18 # Bowel Movements 1 Narrative: Gen.: Pleasant elderly female, appears in no acute distress Head: Normocephalic. Atraumatic. Cardiovascular: Irregular rate and rhythm Respiratory: Bilateral crackles bases Abdomen: Soft, nontender, nondistended. Normoactive bowel sounds Musculoskeletal: No gross deformities. No edema. Skin: Vitiligo changes Neuro: Alert and oriented x4. Results - Labs CBC & Chem 7: 01/11/18 08:43 01/11/18 08:43 Laboratory Results - last 24 hr 01/11/18 01/11/18 01/11/18 06:53 08:43 08:43 WBC 12.3 H RBC 3.74 L Hgb 11.8 L Hct 35.6 L MCV 95.2 MCH 31.6 MCHC 33.2 RDW 16.4 Plt Count 247 MPV 7.8 Neut % (Auto) 82.4 H Lymph % (Auto) 10.0 [place] % (Auto) 6.5 Eos % (Auto) 0.9 Baso % (Auto) 0.2 Neut # (Auto) 10.2 H Lymph # (Auto) 1.2 [place] # (Auto) 0.8 Eos # (Auto) 0.1 Baso # (Auto) 0.0 WBC Differential . Differential Comment Auto diff final PT 17.2 H INR 1.7 Sodium Potassium Chloride Carbon Dioxide Anion Gap BUN Creatinine Estimated GFR POC Glucose 104 Random Glucose Calcium 01/11/18 08:43 WBC RBC Hgb Hct MCV MCH MCHC RDW Plt Count MPV Neut % (Auto) Lymph % (Auto) [place] % (Auto) Eos % (Auto) Baso % (Auto) Neut # (Auto) Lymph # (Auto) [place] # (Auto) Eos # (Auto) Baso # (Auto) WBC Differential Differential Comment PT INR Sodium 138 Potassium 3.6 Chloride 95 L Carbon Dioxide 35.7 H Anion Gap 7 BUN 16 Creatinine 0.97 Estimated GFR 74 L POC Glucose Random Glucose 84 Calcium 8.6 Assessment and Plan - Plan impression PNA COPD AFIB HTN HLD PLAN O2 ANTIBX BRONCHODILATORS BRONCHOSCOPY TODAY IF STABLE MAY D/C HOME AM
[2018-01-11 15:24] LABS: TB1 Ag minus Nil Result 0.01 IU/mL
--- NOTE | 2018-01-11 15:29 | P.DS ---
<Rona Taveras - Last Filed: 01/11/18 17:06> Date of admission: 01/09/18 03:04 Primary care physician: PROVIDER NON STAFF Brief History from admission: 82-year-old male with a past medical history significant for CAD status post recent stent placement, COPD, atrial fibrillation anticoagulated on Coumadin, CHF, status post TAVR 11/21, hypothyroidism and hypertension presents to the emergency department for the evaluation of possible tuberculosis. The patient was recently admitted to a rehab facility where an intake chest x-ray was performed which showed new mild left lower lobe opacities. Per radiologist read the differential considerations included atelectasis, edema or pneumonia or tuberculosis. The patient reports mild hemoptysis that occurred approximately 2 weeks ago. He denies any fever/chills. Denies night sweats or weight loss. No chest pain or shortness of breath. No abdominal pain. No nausea/vomiting/diarrhea. No lateralizing signs/symptoms. DS: Medications - Discharge Medications Prescriptions: azithromycin 500 mg PO DAILY #3 tab DS: Summary Hospital Course: 82-year-old white male with a history of chronic atrial fibrillation, CAD with previous cardiac catheterization with stent placement sent from [facility] [place] secondary to abnormal finding on chest x-ray to rule out tuberculosis. Patient does have a history of hemoptysis. 1. Abnormal chest x-ray -suspect healthcare associated pneumonia and bilateral pleural effusion status post TAVR Radiologist stated differential included possible pneumonia but cannot exclude tuberculosis QuantiFERON still pending, MTub pending Droplet precautions Chest CT done in the emergency department significant for increased density at the bases, atelectasis versus consolidation with previously present prominent mediastinal and hilar lymph nodes Vanco/Zosyn to cover for possible healthcare associated pneumonia as patient with leukocytosis with left shift, repeat CBC today shows improvement. Patient also has bilateral pleural effusion -will continue with diuretics. Consult pulmonary service for further evaluation. Patient underwent bronchoscopy by Dr Kelly on 01/11/18, will have results as OP , to follow up as OP with Dr Kelly Wean oxygen as tolerated. 2. Coronary artery disease Status post cardiac catheterization with stent placement Continue Plavix, beta-shun 3. Status post TAVR Continue beta-shun physical therapy 4. Atrial fibrillation, chronic Continue anticoagulation with Coumadin Continue metoprolol INR 1.6 today give extra 1 mg warfarin in addition to his home 5 mg. 5. COPD, chronic and not in exacerbation Continue home prednisone 6. Hypothyroidism Continue home Synthroid 7. Hypertension, chronic essential Continue home losartan DVT prophylaxisCoumadin Continue physical therapy. Discharge Planning: PT recommends home without PT Per Dr Robin fischer DC tomorrow. Home walk O2 test to eval for need of O2 at home - Time Spent with Patient Total time spent providing and/or coordinating discharge services: Greater than 30 minutes - Quality: VTE Deep Vein Thrombosis/Pulmonary Embolism Present on Admission: No Exam Vital signs: Vital Signs 01/10/18 16:00 01/10/18 16:51 01/10/18 20:00 Temperature 98.3 F 97.5 F L Pulse Rate 88 80 Respiratory Rate 17 20 Blood Pressure 129/64 137/80 Pulse Oximetry 98 97 100 01/10/18 20:30 01/11/18 00:00 01/11/18 04:00 Temperature 97.5 F L 97.8 F Pulse Rate 82 84 Respiratory Rate 20 20 Blood Pressure 142/72 H 143/85 H Pulse Oximetry 96 96 99 01/11/18 07:54 01/11/18 10:20 01/11/18 11:24 Temperature 97.7 F 97.6 F Pulse Rate 76 80 Respiratory Rate 20 20 Blood Pressure 153/76 H 128/64 Pulse Oximetry 92 L 94 L 100 01/11/18 14:41 01/11/18 15:00 Temperature 97.8 F Pulse Rate 82 79 Respiratory Rate 17 17 Blood Pressure 107/57 L 103/58 L Pulse Oximetry 98 98 Intake & Output 01/10/18 01/11/18 01/11/18 18:59 06:59 18:59 Intake Total 1400 / 1400 797.5 / 797.5 200 / 200 Output Total 2500 / 2500 2640 / 2640 Balance -1100 / -1100 -1842.5 / -1842.5 200 / 200 Weight 114.89 kg Intake: IV 200 / 200 517.5 / 517.5 200 / 200 Zosyn 4.5 GM Premix 4.5 gm In 200 / 200 200 / 200 100 ml @ 200 mls/hr IV.SIG Q6H BECKY Rx#:[id number] Vancomycin Inj 1,750 MG In NS 517.5 / 517.5 Inj 500 ML @ 250 mls/hr IV.SIG Q18H BECKY Rx#:[id number] Oral 1200 / 1200 280 / 280 Output: Urine 2500 / 2500 2640 / 2640 Stool 0 / 0 Other: Date of Last Bowel Movement 01/10/18 01/10/18 01/10/18 # Bowel Movements 1 Narrative: Gen.: Pleasant elderly male, appears in no acute distress Head: Normocephalic. Atraumatic. Cardiovascular: Irregular rate and rhythm Respiratory: Bilateral crackles bases Abdomen: Soft, nontender, nondistended. Normoactive bowel sounds Musculoskeletal: No gross deformities. No edema. Skin: Vitiligo changes Neuro: Alert and oriented x4. Results Procedures completed during hospitalization: Bronchoscopy by Dr Kelly on 01/11/18 Labs on day of discharge: Labs from last 24 hours 01/11/18 01/11/18 01/11/18 08:43 08:43 08:43 WBC 12.3 H RBC 3.74 L Hgb 11.8 L Hct 35.6 L MCV 95.2 MCH 31.6 MCHC 33.2 RDW 16.4 Plt Count 247 MPV 7.8 Neut % (Auto) 82.4 H Lymph % (Auto) 10.0 Jack % (Auto) 6.5 Eos % (Auto) 0.9 Baso % (Auto) 0.2 Neut # (Auto) 10.2 H Lymph # (Auto) 1.2 Jack # (Auto) 0.8 Eos # (Auto) 0.1 Baso # (Auto) 0.0 WBC Differential . Differential Comment Auto diff final PT 17.2 H INR 1.7 Sodium 138 Potassium 3.6 Chloride 95 L Carbon Dioxide 35.7 H Anion Gap 7 BUN 16 Creatinine 0.97 Estimated GFR 74 L POC Glucose Random Glucose 84 Calcium 8.6 TB (QFT) Gold In Tube TB Test (QFT) Nil TB Test Mitogen - Nil TB Test Antigen - Nil 01/11/18 01/08/18 06:53 23:20 WBC RBC Hgb Hct MCV MCH MCHC RDW Plt Count MPV Neut % (Auto) Lymph % (Auto) Jack % (Auto) Eos % (Auto) Baso % (Auto) Neut # (Auto) Lymph # (Auto) [place] # (Auto) Eos # (Auto) Baso # (Auto) WBC Differential Differential Comment PT INR Sodium Potassium Chloride Carbon Dioxide Anion Gap BUN Creatinine Estimated GFR POC Glucose 104 Random Glucose Calcium TB (QFT) Gold In Tube Negative TB Test (QFT) Nil 0.03 TB Test Mitogen - Nil 9.35 TB Test Antigen - Nil 0.01 - Impressions ITS Impressions Chest X-Ray 01/08/18 20:14 CONCLUSION: Hypoinflation with bibasilar atelectasis. Chest CT 01/08/18 23:03 CONCLUSION: 1. Cardiomegaly. The patient is status post sternotomy. There is a transaortic valve replacement present. There is a 2.6 cm metallic density at the right ventricular apex without pacer lead seen. 2. Underlying chronic appearing interstitial disease. 3. Increased density at the bases likely related to underlying atelectasis or consolidation. There are mild bilateral pleural effusions being worse on the left. 4. Nonspecific prominent lymph nodes in the mediastinum and hilar regions. These were present previously. 5. Gallstone in a contracted gallbladder. <Deon Loredo - Last Filed: 01/12/18 13:29> Date of admission: 01/09/18 03:04 Primary care physician: PROVIDER NON STAFF DS: Summary Hospital Course: Per walk test, we will order 3L of home O2. - Time Spent with Patient Total time spent providing and/or coordinating discharge services: Exam Vital signs: Vital Signs 01/11/18 14:41 01/11/18 15:00 01/11/18 17:00 Temperature 97.8 F 98.0 F Pulse Rate 82 79 82 Respiratory Rate 17 17 16 Blood Pressure 107/57 L 103/58 L 147/66 H Pulse Oximetry 98 98 94 L Pulse Oximetry [Exertion on Room Air] Pulse Oximetry [Exertion with Oxygen] Pulse Oximetry [Resting on Room Air] Pulse Oximetry [Resting with Oxygen] 01/11/18 20:00 01/11/18 23:20 01/12/18 03:30 Temperature 97.7 F 97.5 F L 97.6 F Pulse Rate 81 77 69 Respiratory Rate 16 16 16 Blood Pressure 117/57 L 144/68 H 152/90 H Pulse Oximetry 96 94 L 96 Pulse Oximetry [Exertion on Room Air] Pulse Oximetry [Exertion with Oxygen] Pulse Oximetry [Resting on Room Air] Pulse Oximetry [Resting with Oxygen] 01/12/18 06:05 01/12/18 08:00 01/12/18 11:47 Temperature 98 F 97.7 F Pulse Rate 85 71 Respiratory Rate 17 18 Blood Pressure 144/71 H 118/67 Pulse Oximetry 94 L 99 97 Pulse Oximetry [Exertion on Room Air] Pulse Oximetry [Exertion with Oxygen] Pulse Oximetry [Resting on Room Air] Pulse Oximetry [Resting with Oxygen] 01/12/18 12:08 Temperature Pulse Rate Respiratory Rate Blood Pressure Pulse Oximetry 96 Pulse Oximetry [Exertion on Room Air] 87 L Pulse Oximetry [Exertion with Oxygen] 96 Pulse Oximetry [Resting on Room Air] 95 Pulse Oximetry [Resting with Oxygen] 97 Intake & Output 01/11/18 01/12/18 01/12/18 18:59 06:59 18:59 Intake Total 200 / 200 1500 / 1500 Output Total 1250 / 1250 600 / 600 Balance 200 / 200 250 / 250 -600 / -600 Weight 114.9 kg Intake: IV 200 / 200 300 / 300 Zosyn 4.5 GM Premix 4.5 gm In 200 / 200 300 / 300 100 ml @ 200 mls/hr IV.SIG Q6H BECKY Rx#:[id number] Oral 1200 / 1200 Output: Urine 1250 / 1250 600 / 600 Other: Date of Last Bowel Movement 01/10/18 01/12/18 01/12/18 # Bowel Movements 1 1 Results Labs on day of discharge: Labs from last 24 hours 01/12/18 01/11/18 01/08/18 05:29 15:30 23:20 Creatinine 0.95 Estimated GFR 76 L Vancomycin Trough 19.4 H TB (QFT) Gold In Tube Negative TB Test (QFT) Nil 0.03 TB Test Mitogen - Nil 9.35 TB Test Antigen - Nil 0.01 Preliminary micro results at discharge 01/11/18 14:24 Bronchial Culture - Preliminary Bronchial - Right Lower Lobe Rare growth normal respiratory lisandro at 24 hours - Impressions ITS Impressions Chest X-Ray 01/08/18 20:14 CONCLUSION: Hypoinflation with bibasilar atelectasis. Chest CT 01/08/18 23:03 CONCLUSION: 1. Cardiomegaly. The patient is status post sternotomy. There is a transaortic valve replacement present. There is a 2.6 cm metallic density at the right ventricular apex without pacer lead seen. 2. Underlying chronic appearing interstitial disease. 3. Increased density at the bases likely related to underlying atelectasis or consolidation. There are mild bilateral pleural effusions being worse on the left. 4. Nonspecific prominent lymph nodes in the mediastinum and hilar regions. These were present previously. 5. Gallstone in a contracted gallbladder. Discharge Plan - Discharge Order Discharge Orders: Discharge Order (Routine); Ordered 01/12/18 Ordered By: Rona Taveras - Discharge Details Anticipated Discharge Date: 01/12/18 - Physicians Team Primary Care Provider: NON STAFF,PROVIDER Attending Provider: Deon Loredo Other Providers: Inbilin,Insurance ; [facility] ; Faith Vaughn MD
--- NOTE | 2018-01-11 15:39 | MB ---
cc: Robin Kelly MD DATE: 01/11/2018 PROCEDURE: Fiberoptic bronchoscopy, flexible. REASON FOR BRONCHOSCOPY: Hemoptysis, rule out underlying malignancy. PROCEDURE IN DETAIL: Fiberoptic bronchoscopy performed via LMA. Vocal cords visualized; appeared intact. Trachea mildly hyperemic, dirk sharp. Right main stem bronchus, right upper, middle, and lower lobe, left main bronchus, left upper and lower lobe inspected. No obstructive pathology or mass lesion seen. Washings obtained from both sides of the tracheobronchial tree for routine TB, fungal cultures and cytological exam. Cytologic brush biopsy right lower lung lobe, which was somewhat more hyperemic was obtained for cytological exam. The procedure well tolerated. The patient was transferred to the recovery room in stable condition. IMPRESSION: 1. Mild tracheobronchitis. 2. No active bleeding. 3. No obstruction, no mass lesion. 4. Samples obtained as above. 5. The patient was transferred to recovery in stable condition. MD DARLENE Reyes/david , 03:06 PM , 03:11 PM
[2018-01-11] MEDS: Vancomycin Inj 1,750 MG in Sodium Chlor 0.9% Inj 500 ML IV.SIG SCH (16:10)
[2018-01-11] MEDS ORDERED: Vancomycin Inj 1,750 MG in Sodium Chlor 0.9% Inj 500 ML IV.SIG SCH (18:00)
[2018-01-12] MEDS: Piperacil/Tazo 4.5 GM Premix 4.5 GM/100 ML BAG IV.SIG SCH ×4 (04:20→16:09)
[2018-01-12] MEDS: Levothyroxine 50 MCG Tablet PO SCH ×2 (04:20→08:13)
[2018-01-12] MEDS: Senna/Docusate Sodium 8.6/50 MG Tablet PO SCH (09:58)
[2018-01-12] MEDS: Pantoprazole Sodium 20 MG DR Tablet PO SCH (09:58)
[2018-01-12] MEDS: predniSONE 20 MG Tablet PO SCH (09:58)
[2018-01-12] MEDS: Ferrous Sulfate 325 MG Tablet PO SCH (09:58)
[2018-01-12] MEDS: Metoprolol Tartrate 25 MG Tablet PO SCH (09:58)
[2018-01-12] MEDS: FLUoxetine 20 MG Capsule PO SCH (09:58)
[2018-01-12] MEDS: Azithromycin 250 MG Tablet PO SCH (09:59)
[2018-01-12 11:48] VITALS: BP 118/67; PULSE 71; RESP 18; TEMP 97.7
[2018-01-12 12:12] VITALS: O2SAT 96
--- NOTE | 2018-01-12 13:28 | P.PNADD ---
Addendum to Inpatient Note Additional information: Patient seen/examined. Patient underwent walk test and subsequently, we put an order for 3L of home O2. Patient can be discharged once Home O2 is arranged.
[2018-01-12] MEDS ORDERED: Vancomycin Inj 1,500 MG in Sodium Chlor 0.9% Inj 500 ML IV.SIG SCH (16:00)
[2018-01-13] MEDS ORDERED: Pharmacy Ordered Lab Info OTHER ONE (05:45)
== END 2018-01-12 19:15 | disposition home or self-care (01) ==
LOC: NEDA 19:36 → NEPD 19:36 → H7ONC 01-09 10:10 → NEDA 01-09 10:55 → H7ONC 01-09 11:20 → N06 01-11 16:59
PROVIDERS: ADMIT Hospitalist; ATTEND Hospitalist

== ENCOUNTER 2018-02-28 10:03 | Inpatient (IN) ==
--- NOTE | 2018-02-28 10:33 | ED ---
HPI General Chief complaint: Respiratory Symptoms Stated complaint: sob-sent by primary Time Seen by Provider: 02/28/18 10:12 Source: patient Mode of arrival: wheelchair Limitations: no limitations History of Present Illness HPI narrative: This 82-year-old male presents with complaint of shortness of breath. He has a history of lung and heart disease. He apparently has pulmonary fibrosis. He is a patient of Dr. goldman. He has been at Dr. Hastings's office this morning and was told to come here. He has been short of breath for some time getting progressively worse. He is tired all the time and sleeps excessively. He has been coughing up thick phlegm. He does have history of significant heart disease. He had bypass surgery several years ago he had a TAVR done in November of this year. He had recent stents placed at [facility]. He is on Coumadin because of atrial fibrillation. He has never smoked. 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 He has had congestive heart failure in the past. His legs are chronically swollen. He uses nebulizer treatments 3 times daily Related Data Home Medications Medication Instructions Recorded Confirmed albuterol sulfate 2.5 mg INHALATION Q4H PRN 11/21/17 01/09/18 atorvastatin [Lipitor] 80 mg PO DAILY 11/21/17 01/09/18 clonazepam 1 mg PO TID 11/21/17 01/09/18 clopidogrel [Plavix] 75 mg PO DAILY 11/21/17 01/09/18 fluoxetine 20 mg PO DAILY 11/21/17 01/09/18 furosemide 20 mg PO DAILY 11/21/17 01/09/18 levothyroxine 50 mcg PO DAILY 11/21/17 01/09/18 losartan 100 mg PO DAILY 11/21/17 01/09/18 montelukast 10 mg PO QPM 11/21/17 01/09/18 warfarin [Coumadin] 5 mg PO DAILY 11/21/17 01/09/18 cefdinir 300 mg PO Q12H 01/09/18 01/09/18 fluticasone-vilanterol [Breo 1 inh INHALATION DAILY 01/09/18 01/09/18 Ellipta] metoprolol tartrate 75 mg PO BID 01/09/18 01/09/18 montelukast 10 mg PO QPM 01/09/18 01/09/18 omeprazole 20 mg PO DAILY 01/09/18 01/09/18 Previous Rx's Medication Instructions Recorded ferrous sulfate [FeroSul] 325 mg PO DAILY #30 tab 11/24/17 azithromycin 500 mg PO DAILY #3 tab 01/11/18 Allergies Allergy/AdvReac Type Severity Reaction Status Date / Time Sulfa (Sulfonamide Allergy Rash Verified 02/28/18 10:06 Antibiotics) tetracycline Allergy Abdominal Verified 02/28/18 10:06 Pain [facility] Medical History Medical History FH: total knee replacement (Acute) GERD (gastroesophageal reflux disease) (Acute) Hypothyroid (Acute) Oxygen dependent (Acute) Pacemaker (Acute) Triple vessel coronary artery disease (Acute) Atrial fibrillation (Acute) COPD (chronic obstructive pulmonary disease) (Acute) Coronary artery disease (Acute) Hyperlipidemia (Acute) Hypertension (Acute) Left bundle branch block (LBBB) (Acute) Surgical History Surgical History History of back surgery (Acute) History of heart valve replacement (Acute) Hx of tonsillectomy (Acute) S/P TAVR (transcatheter aortic valve replacement) (Acute) Status post cardiac catheterization (Acute) Social History Social History Substance History: No History of Abuse Second Hand Smoke Exposure: No Smoking Status: Never smoker How Often Do You Have a Drink Containing Alcohol: 4 or more times a week Recent Travel in [facility] within the Last 8 Weeks: No Recent Out of Country Travel within the Last 8 Weeks: No Exam Narrative Exam Narrative: GENERAL: Chronically ill-appearing male SKIN: Focused skin assessment warm/dry. HEAD: Atraumatic. Normocephalic. EYES: Pupils equal and round. No scleral icterus. No injection or drainage. ENT: No nasal bleeding or discharge. Mucous membranes pink and moist. NECK: Trachea midline. No JVD. CARDIOVASCULAR: Irregular rate and rhythm. No murmur appreciated. RESPIRATORY: No accessory muscle use. There are occasional rhonchi. There are bibasilar rales. GASTROINTESTINAL: Abdomen soft, non-tender, nondistended. Hepatic and splenic margins not palpable. MUSCULOSKELETAL: No obvious deformities. No clubbing. No cyanosis. Bilateral pedal edema NEUROLOGICAL: Awake and alert. No obvious cranial nerve deficits. Motor grossly within normal limits. Normal speech. PSYCHIATRIC: Appropriate mood and affect; insight and judgment normal. Course Initial Documented Vital Signs Temperature 97.5 F L 02/28/18 10:06 Pulse Rate 109 H 12/13/18 10:06 Respiratory Rate 20 02/28/18 10:06 Blood Pressure 149/67 H 02/28/18 10:06 Pulse Oximetry 95 02/28/18 10:06 Last Documented Vital Signs Temperature 97.5 F L 02/28/18 10:06 Pulse Rate 93 H 02/28/18 11:25 Respiratory Rate 18 02/28/18 11:25 Blood Pressure 126/97 H 02/28/18 11:25 Pulse Oximetry 97 02/28/18 11:26 Medical Decision Making MDM Narrative Medical decision making narrative: Blood gas was done and shows pH 7.42 PCO2 48 and PO2 of 73 on 3 L nasal cannula. Chest x-ray shows enlarged heart. There is interstitial prominence and scattered airspace disease. BNP is 802. His INR is 6.5. He has been given 40 mg additional Lasix. I have discussed the case with Dr. Jiménez who recommends intravenous steroids and antibiotics and admission to the hospital. Impression is respiratory failure, COPD, CHF, coagulopathy Medical Screen Exam Complete: Yes Emergency Medical Condition: Yes Differential Diagnosis Differential Diagnosis: Differential includes COPD exacerbation, CHF, pulmonary fibrosis Lab Data Result diagrams: 02/28/18 10:25 02/28/18 10:25 Lab Results 02/28/18 02/28/18 02/28/18 Range/Units 10:25 10:25 10:25 CBC w Diff Auto diff final WBC 8.9 (4.0-11.0) th/mm3 RBC 4.06 L (4.50-5.90) mil/mm3 Hgb 12.0 L (13.0-17.0) gm/dL Hct 37.8 L (39.0-51.0) % MCV 93.0 (80.0-100.0) fL MCH 29.6 (27.0-34.0) pg MCHC 31.8 L (32.0-36.0) % RDW 15.3 (11.6-17.2) % Plt Count 307 (150-450) th/mm3 MPV 8.1 (7.0-11.0) fL Neut % (Auto) 65.2 (16.0-70.0) % Lymph % (Auto) 13.7 (9.0-44.0) % Sheridan % (Auto) 14.1 H (0.0-8.0) % Eos % (Auto) 5.9 H (0.0-4.0) % Baso % (Auto) 1.1 (0.0-2.0) % Neut # (Auto) 5.8 (1.8-7.7) th/mm3 Lymph # (Auto) 1.2 (1.0-4.8) th/mm3 Sheridan # (Auto) 1.3 H (0.0-0.9) th/mm3 Eos # (Auto) 0.5 H (0.0-0.4) th/mm3 Baso # (Auto) 0.1 (0.0-0.2) th/mm3 WBC Differential . Differential Comment . PT 65.3 H (9.8-11.6) sec INR 6.5 H* Ratio APTT 56.5 H (23.4-31.7) sec Puncture Site Patient Temperature O2 Saturation (90-100) % ABG pH (7.380-7.420) ABG pCO2 (38-42) mmHg ABG pO2 (61-120) mmHg ABG HCO3 (22-26) mmol/L ABG O2 Content (12.0-20.0) Vol % ABG Base Excess (-2-2) mmol/L ABG Methemoglobin (0-2) % Isrrael Test Hemoglobin (12.0-16.0) G/DL Carboxyhemoglobin (0-4) % O2 Delivery Device Liter Flow L/M Critical Value Sodium 140 (136-145) meq/L Potassium 3.7 (3.5-5.1) meq/L Chloride 100 (98-107) meq/L Carbon Dioxide 32.7 H (21.0-32.0) meq/L Anion Gap 7 (5-15) meq/L BUN 10 (7-18) mg/dL Creatinine 0.70 (0.60-1.30) mg/dL Estimated GFR Greater than 89 (>89) mL/min Random Glucose 87 (74-106) mg/dL Calcium 8.3 L (8.5-10.1) mg/dL Magnesium 1.6 (1.5-2.5) mg/dL Total Bilirubin 1.0 (0.2-1.0) mg/dL AST 37 (15-37) U/L ALT 18 (12-78) U/L Alkaline Phosphatase 93 (45-117) U/L Troponin I Less than 0.02 L (0.02-0.05) ng/mL B-Natriuretic Peptide (0-100) pg/mL Total Protein 7.0 (6.4-8.2) g/dL Albumin 2.5 L (3.4-5.0) g/dL 02/28/18 02/28/18 Range/Units 10:25 11:20 CBC w Diff WBC (4.0-11.0) th/mm3 RBC (4.50-5.90) mil/mm3 Hgb (13.0-17.0) gm/dL Hct (39.0-51.0) % MCV (80.0-100.0) fL MCH (27.0-34.0) pg MCHC (32.0-36.0) % RDW (11.6-17.2) % Plt Count (150-450) th/mm3 MPV (7.0-11.0) fL Neut % (Auto) (16.0-70.0) % Lymph % (Auto) (9.0-44.0) % Sheridan % (Auto) (0.0-8.0) % Eos % (Auto) (0.0-4.0) % Baso % (Auto) (0.0-2.0) % Neut # (Auto) (1.8-7.7) th/mm3 Lymph # (Auto) (1.0-4.8) th/mm3 Sheridan # (Auto) (0.0-0.9) th/mm3 Eos # (Auto) (0.0-0.4) th/mm3 Baso # (Auto) (0.0-0.2) th/mm3 WBC Differential Differential Comment PT (9.8-11.6) sec INR Ratio APTT (23.4-31.7) sec Puncture Site Right radial Patient Temperature 98.6 O2 Saturation 92 (90-100) % ABG pH 7.42 (7.380-7.420) ABG pCO2 49 H (38-42) mmHg ABG pO2 73 (61-120) mmHg ABG HCO3 31 H (22-26) mmol/L ABG O2 Content 14.7 (12.0-20.0) Vol % ABG Base Excess 6.6 H (-2-2) mmol/L ABG Methemoglobin 1.1 (0-2) % Isrrael Test Present Hemoglobin 11.3 L (12.0-16.0) G/DL Carboxyhemoglobin 1.9 (0-4) % O2 Delivery Device Nasal cannula Liter Flow 3.00 L/M Critical Value No Sodium (136-145) meq/L Potassium (3.5-5.1) meq/L Chloride (98-107) meq/L Carbon Dioxide (21.0-32.0) meq/L Anion Gap (5-15) meq/L BUN (7-18) mg/dL Creatinine (0.60-1.30) mg/dL Estimated GFR (>89) mL/min Random Glucose (74-106) mg/dL Calcium (8.5-10.1) mg/dL Magnesium (1.5-2.5) mg/dL Total Bilirubin (0.2-1.0) mg/dL AST (15-37) U/L ALT (12-78) U/L Alkaline Phosphatase (45-117) U/L Troponin I (0.02-0.05) ng/mL B-Natriuretic Peptide 804 H (0-100) pg/mL Total Protein (6.4-8.2) g/dL Albumin (3.4-5.0) g/dL Imaging Data Radiologist's impression: Chest X-Ray 02/28/18 10:25 CONCLUSION: Hypoaerated lungs with persistent interstitial prominence and mild scattered airspace disease. Discharge Plan Discharge Disposition Patient Disposition: ED Admit(ED Internal Use Only) Discharge Condition Condition: Fair Discharge Order Discharge Orders: ED Use Only Admit Order (Routine); Ordered 02/28/18 Ordered By: Ze Hutchinson Discharge Details Diagnosis: CHF (congestive heart failure), COPD (chronic obstructive pulmonary disease), Coagulopathy Physicians Team ED Provider: Ze Hutchinson Primary Care Provider: Renae Olmstead Rxs /Orders / Referrals /Forms Prescriptions: No Action warfarin [Coumadin] 5 mg Tablet 5 mg PO DAILY RF: 0 clonazepam 1 mg Tablet 1 mg PO TID RF: 0 clopidogrel [Plavix] 75 mg Tablet 75 mg PO DAILY RF: 0 atorvastatin [Lipitor] 20 mg Tablet 80 mg PO DAILY RF: 0 albuterol sulfate 2.5 mg /3 mL (0.083 %) Solution For Nebulization 2.5 mg INHALATION Q4H PRN (Reason: Anxiety) RF: 0 fluoxetine 20 mg Tablet 20 mg PO DAILY RF: 0 montelukast 10 mg Tablet 10 mg PO QPM RF: 0 furosemide 20 mg Tablet 20 mg PO DAILY RF: 0 losartan 100 mg Tablet 100 mg PO DAILY RF: 0 levothyroxine 50 mcg Tablet 50 mcg PO DAILY RF: 0 ferrous sulfate [FeroSul] 325 mg (65 mg iron) Tablet 325 mg PO DAILY Qty: 30 RF: 3 metoprolol tartrate 75 mg Tablet 75 mg PO BID RF: 0 omeprazole 20 mg Capsule,Delayed Release(Dr/Ec) 20 mg PO DAILY RF: 0 montelukast 10 mg Tablet 10 mg PO QPM RF: 0 cefdinir 300 mg Capsule 300 mg PO Q12H RF: 0 fluticasone-vilanterol [Breo Ellipta] 100-25 mcg/dose Blister With Device 1 inh INHALATION DAILY RF: 0 azithromycin 250 mg Tablet 500 mg PO DAILY Qty: 3 RF: 0 Discharge Interventions Interventions: Vital Signs Last Done: 02/28/18 11:25 Status ED Status: With Doctor
[2018-02-28 10:47] LABS: Baso # (Auto) 0.1 th/mm3 (0.0-0.2); Baso % (Auto) 1.1 % (0.0-2.0); Eos # (Auto) 0.5 th/mm3 (0.0-0.4); Eos % (Auto) 5.9 % (0.0-4.0); Hematocrit 37.8 % (39.0-51.0); Lymph # (Auto) 1.2 th/mm3 (1.0-4.8); Lymph % (Auto) 13.7 % (9.0-44.0); Mean Corpuscular HGB Conc 31.8 % (32.0-36.0); Mean Corpuscular Hemoglobin 29.6 pg (27.0-34.0); Mean Platelet Volume 8.1 fL (7.0-11.0); Mono # (Auto) 1.3 th/mm3 (0.0-0.9); Mono % (Auto) 14.1 % (0.0-8.0); Neut # (Auto) 5.8 th/mm3 (1.8-7.7); Neut % (Auto) 65.2 % (16.0-70.0); Platelet Count 307 th/mm3 (150-450); Red Blood Count 4.06 mil/mm3 (4.50-5.90); Red Cell Distribution Width 15.3 % (11.6-17.2); White Blood Count 8.9 th/mm3 (4.0-11.0)
[2018-02-28 11:04] LABS: Chloride 100 meq/L (98-107); Potassium 3.7 meq/L (3.5-5.1); Sodium 140 meq/L (136-145)
--- NOTE | 2018-02-28 11:05 | XR ---
EXAM DATE: 02/28/2018 10:53 AM EST AGE/SEX: 82 years / Male INDICATIONS: Short of breath for a few months. Patient is post TAVR 11/2017. CLINICAL DATA: This is the patient's initial encounter. Patient reports that signs and symptoms have been present for 1 day and indicates a pain score of 0/10. MEDICAL/SURGICAL HISTORY: Congestive heart failure. Hypertension. Left bundle branch block. Pu lmonary fibrosis. Pneumonia. A-fib. CAD. CABG. Pacemaker. TAVR. Cardiac cath w/ stents placed. COMPARISON: C, CHEST 1V SINGLE AP, 01/08/2018. . FINDINGS: Lungs remain hypoaerated. Scattered interstitial prominence and airspace disease are again identified . There is been no significant change. CONCLUSION: Hypoaerated lungs with persistent interstitial prominence and mild scattered airspace disease. Electronically signed by: Noe Urena MD 02/28/2018 11:03 AM EST
[2018-02-28 11:08] LABS: Calcium 8.3 mg/dL (8.5-10.1)
[2018-02-28 11:09] LABS: Activated Partial Thrombo Time 56.5 sec (23.4-31.7); Albumin 2.5 g/dL (3.4-5.0); Anion Gap 7 meq/L (5-15); Blood Urea Nitrogen 10 mg/dL (7-18); Carbon Dioxide 32.7 meq/L (21.0-32.0); Glucose,Random 87 mg/dL (74-106); Magnesium 1.6 mg/dL (1.5-2.5); Prothrombin Time 65.3 sec (9.8-11.6)
[2018-02-28 11:11] LABS: Alanine Aminotransferase 18 U/L (12-78)
[2018-02-28 11:12] LABS: Aspartate Aminotransferase 37 U/L (15-37); Glomerular Filtration Rate Greater Than 89 mL/min (>89)
[2018-02-28 11:14] LABS: Alkaline Phosphatase 93 U/L (45-117)
[2018-02-28 11:19] LABS: INR 6.5 Ratio
[2018-02-28 11:28] LABS: ABG Base Excess 6.6 mmol/L (-2-2); ABG PCO2 49 mmHg (38-42); ABG PO2 73 mmHg (61-120)
[2018-02-28] MEDS ORDERED: MethylPREDNISolone Sod Succinate Inj 40 MG/ML Vial IV.PUSH ONE (11:54)
--- NOTE | 2018-02-28 12:01 | ECG ---
Date Performed: 02/28/2018 Time Performed: 10:16:19 PTAGE: 82 years EKG: ATRIAL FIBRILLATION WITH ABERRANT CONDUCTION OR VENTRICULAR PREMATURE COMPLEXES Probable ve ntricular demand pacemaker MARKED LEFT AXIS DEVIATION LEFT BUNDLE BRANCH BLOCK ABNORMAL ECG No signif icant change from prior electrocardiogram. PREVIOUS TRACING : 01/08/2018 22.33 DOCTOR: Francisco Javier Marte Interpretating Date/Time 02/28/2018 11:59:37
[2018-02-28] MEDS ORDERED: Bisacodyl 10 MG Supp RECTAL PRN (12:05)
[2018-02-28] MEDS ORDERED: Acetaminophen 325 MG Tablet PO PRN (12:05)
[2018-02-28 12:26] LABS: Bilirubin,Urine Negative (Negative); Clarity,Urine Clear (Clear); Color,Urine Yellow (Yellw/Straw); Glucose,Urine (UA) Negative (Negative); Leukocyte Esterase,Urine Negative (Negative); Nitrite,Urine Negative (Negative); Specific Gravity,Urine 1.015 (1.002-1.035); Urobilinogen,Urine 0.2 mg/dL (Less than 2)
--- NOTE | 2018-02-28 13:01 | P.HP ---
History of Present Illness Primary Care Physician: Renae Olmstead MD Chief Complaint: Shortness of breath History of Present Illness: This is an 82-year-old male patient with a known medical history of COPD, hypertension, hyperlipidemia, hypothyroidism, CAD with history of cardiac stent placement and CABG as well as atrial fibrillation on Coumadin who presented to the ED with complaints of worsening shortness of breath and cough. Patient states that he has had worsening shortness of breath of the past couple weeks as well as over the last several months. He states that the shortness of breath worsens especially with exertion. It should be noted that he does use home oxygen 3 L nasal cannula at baseline. He does see Dr. Kelly, pulmonology, states he saw him this morning was sent over to the ED for evaluation. Patient was recently prescribed a prednisone Dosepak which he completed as well as antibiotic azithromycin, although patient did not fill azithromycin prescription. Since completed the prednisone patient's symptoms have continued without improvement. On exam patient is on 3 L nasal cannula, lying comfortably in bed, at bedside. BNP 804 on presentation. INR 6.5. Chest x-ray showing cardiomegaly with interstitial prominence and scattered airspace disease. It should be noted that patient has had over 6 hospitalizations in the last 3 months. He has been alternating between [facility] and [place]. His last hospitalization was 6 weeks ago at for COPD exacerbation. Patient underwent a TAVR and pacemaker placement in November of this year, and states that he has not had any follow-up with Dr. Cardenas since then. Patient's rn rehabilitation is Dr. Harvey, last seen 2 weeks ago without any changes to his medications. - Diagnosis (1) COPD with exacerbation (2) CHF exacerbation Inpatient Certification: I certify that the inpatient services were ordered in accordance with Medicare regulations governing the order. This includes certification that hospital inpatient services are reasonable and necessary and in the case of services not specified as inpatient-only under 42 CFR 419.22(n), that they are appropriately provided as inpatient services in accordance to with the 2-midnight benchmark under 43 CFR 412.3(e) Estimated Total Length of Stay (Days): 3 Plans for Post Hospital Care: Not yet determined Review of Systems All other systems reviewed negative except as stated in [facility] - History History Provided By: Patient, Family Member - Medical History Medical History: Medical History (Last Reviewed 02/28/18 @ 13:04 by Carmencita Whitt) FH: total knee replacement GERD (gastroesophageal reflux disease) Hypothyroid Oxygen dependent Pacemaker Triple vessel coronary artery disease Atrial fibrillation COPD (chronic obstructive pulmonary disease) Coronary artery disease Hyperlipidemia Hypertension Left bundle branch block (LBBB) - Surgical History Surgical History: Surgical History (Last Reviewed 02/28/18 @ 13:04 by Carmencita Whitt) History of back surgery History of heart valve replacement Hx of tonsillectomy S/P TAVR (transcatheter aortic valve replacement) Status post cardiac catheterization - Family History Family History: Family History (Last Reviewed 02/28/18 @ 13:04 by Carmencita Whitt) Other Family history normal - Social History I have reviewed the patient's Social History: Yes - Tobacco History Second Hand Smoke Exposure: No Tobacco Use In Past 30 Days: No Smoking Status: Never smoker - Alcohol History How Often Do You Have a Drink Containing Alcohol: 4 or more times a week - Substance Use History Substance History: No History of Abuse - Travel History Recent Travel in the [place] Within the Last 8 Weeks: No Recent Travel Out of the Country Within the Last 8 Weeks: No - Immunization History Tetanus Immunization: >5 Years Medications and Allergies Active Medications: Active Medications Acetaminophen (Tylenol) 650 mg PO Q4H PRN PRN Reason: Temp > 100.4 Al Hydroxide/Mg Hydroxide (Milk Of Magnesia Liq) 30 ml PO Q12H PRN PRN Reason: Mild Constipation Albuterol (Duoneb Neb (Prn)) 1 ampul NEB Q2HR NEB PRN PRN Reason: SHORTNESS OF BREATH/WHEEZING Albuterol (Duoneb Neb (Luiza)) 1 ampul NEB Q6HR WHILE AWAKE NEB LUIZA Bisacodyl (Dulcolax Supp) 10 mg RECTAL DAILY PRN PRN Reason: SEVERE CONSITIPATION Lactulose (Lactulose Liq) 30 ml PO DAILY PRN PRN Reason: SEVERE CONSITIPATION Methylprednisolone Sodium Succinate (Solumedrol Inj) 40 mg IV.PUSH Q6H LUIZA Ondansetron HCl (Zofran Inj) 4 mg IV.PUSH Q6H PRN PRN Reason: NAUSEA OR VOMITING Sennosides (Senokot) 17.2 mg PO Q12H PRN PRN Reason: Moderate Constipation Sodium Chloride (Ns Flush) 2 ml IV.FLUSH BID LUIZA Sodium Chloride (Ns Flush) 2 ml IV.FLUSH PRN PRN PRN Reason: FLUSH AFTER USING IV ACCESS Allergies Allergy/AdvReac Type Severity Reaction Status Date / Time Sulfa (Sulfonamide Allergy Rash Verified 02/28/18 10:06 Antibiotics) tetracycline Allergy Abdominal Verified 02/28/18 10:06 Pain Home Medications Medication Instructions Recorded Confirmed Type albuterol sulfate 2.5 mg INHALATION Q4H PRN 11/21/17 01/09/18 History atorvastatin [Lipitor] 80 mg PO DAILY 11/21/17 01/09/18 History clonazepam 1 mg PO TID 11/21/17 01/09/18 History clopidogrel [Plavix] 75 mg PO DAILY 11/21/17 01/09/18 History fluoxetine 20 mg PO DAILY 11/21/17 01/09/18 History furosemide 20 mg PO DAILY 11/21/17 01/09/18 History levothyroxine 50 mcg PO DAILY 11/21/17 01/09/18 History losartan 100 mg PO DAILY 11/21/17 01/09/18 History montelukast 10 mg PO QPM 11/21/17 01/09/18 History warfarin [Coumadin] 5 mg PO DAILY 11/21/17 01/09/18 History cefdinir 300 mg PO Q12H 01/09/18 01/09/18 History fluticasone-vilanterol [Breo 1 inh INHALATION DAILY 01/09/18 01/09/18 History Ellipta] metoprolol tartrate 75 mg PO BID 01/09/18 01/09/18 History montelukast 10 mg PO QPM 01/09/18 01/09/18 History omeprazole 20 mg PO DAILY 01/09/18 01/09/18 History Exam Vital signs: Vital Signs 02/28/18 10:06 02/28/18 10:35 02/28/18 10:55 Temperature 97.5 F L Pulse Rate 109 H 86 94 H Respiratory Rate 20 19 Blood Pressure 149/67 H Pulse Oximetry 95 98 02/28/18 11:25 02/28/18 11:26 02/28/18 12:00 Temperature Pulse Rate 93 H 90 Respiratory Rate 18 16 Blood Pressure 126/97 H 135/80 Pulse Oximetry 97 97 98 Intake & Output 02/27/18 02/28/18 02/28/18 18:59 06:59 18:59 Weight 98 kg Narrative: GENERAL: Well-developed, well-nourished elderly male patient in NAD. On supplemental O2 SKIN: Warm and dry. No rash. Left posterior healing wound on calf, clean dry and intact roughly 1 1/2 x 1 1/2 cm. Also has an anterior healing ulcer of the left ankle, roughly 1x1cm. HEAD: Normocephalic. Atraumatic. EYES: Pupils equal and round. No scleral icterus. No injection or drainage. ENT: No nasal bleeding or discharge. Mucous membranes pink and moist. NECK: Supple. Trachea midline. CARDIOVASCULAR: Regular rate and rhythm. S1, S2 noted. No murmur appreciated. RESPIRATORY: No accessory muscle use. Wheezing noted throughout. Breath sounds equal bilaterally. GASTROINTESTINAL: Abdomen soft, non-tender, nondistended. Normoactive bowel sounds x4. MUSCULOSKELETAL: No obvious deformities. Extremities without clubbing, cyanosis. Bilateral lower extremity edema, 2+ pitting NEUROLOGICAL: Awake and alert. No obvious cranial nerve deficits. Motor grossly within normal limits. 5/5 muscle strength in bilateral upper and lower extremities. Normal speech. PSYCHIATRIC: Appropriate mood and affect; insight and judgment normal. Results - Labs CBC & Chem 7: 02/28/18 10:25 02/28/18 10:25 Labs: Laboratory Results - last 24 hr 02/28/18 02/28/18 02/28/18 10:25 10:25 10:25 CBC w Diff Auto diff final WBC 8.9 RBC 4.06 L Hgb 12.0 L Hct 37.8 L MCV 93.0 MCH 29.6 MCHC 31.8 L RDW 15.3 Plt Count 307 MPV 8.1 Neut % (Auto) 65.2 Lymph % (Auto) 13.7 [place] % (Auto) 14.1 H Eos % (Auto) 5.9 H Baso % (Auto) 1.1 Neut # (Auto) 5.8 Lymph # (Auto) 1.2 [place] # (Auto) 1.3 H Eos # (Auto) 0.5 H Baso # (Auto) 0.1 WBC Differential . Differential Comment . PT 65.3 H INR 6.5 H* APTT 56.5 H Puncture Site Patient Temperature O2 Saturation ABG pH ABG pCO2 ABG pO2 ABG HCO3 ABG O2 Content ABG Base Excess ABG Methemoglobin Isrrael Test Hemoglobin Carboxyhemoglobin O2 Delivery Device Liter Flow Critical Value Sodium 140 Potassium 3.7 Chloride 100 Carbon Dioxide 32.7 H Anion Gap 7 BUN 10 Creatinine 0.70 Estimated GFR Greater than 89 Random Glucose 87 Calcium 8.3 L Magnesium 1.6 Total Bilirubin 1.0 AST 37 ALT 18 Alkaline Phosphatase 93 Troponin I Less than 0.02 L B-Natriuretic Peptide Total Protein 7.0 Albumin 2.5 L Urine Color Urine Clarity Urine pH Ur Specific [place] Urine Protein Urine Glucose (UA) Urine Ketones Urine Occult Blood Urine Nitrate Urine Bilirubin Urine Urobilinogen Ur Leukocyte Esterase Micro UA Comment Ur Microscopic Review Urine Culture Comments 02/28/18 02/28/18 02/28/18 10:25 11:20 11:35 CBC w Diff WBC RBC Hgb Hct MCV MCH MCHC RDW Plt Count MPV Neut % (Auto) Lymph % (Auto) [place] % (Auto) Eos % (Auto) Baso % (Auto) Neut # (Auto) Lymph # (Auto) [place] # (Auto) Eos # (Auto) Baso # (Auto) WBC Differential Differential Comment PT INR APTT Puncture Site Right radial Patient Temperature 98.6 O2 Saturation 92 ABG pH 7.42 ABG pCO2 49 H ABG pO2 73 ABG HCO3 31 H ABG O2 Content 14.7 ABG Base Excess 6.6 H ABG Methemoglobin 1.1 Isrrael Test Present Hemoglobin 11.3 L Carboxyhemoglobin 1.9 O2 Delivery Device Nasal cannula Liter Flow 3.00 Critical Value No Sodium Potassium Chloride Carbon Dioxide Anion Gap BUN Creatinine Estimated GFR Random Glucose Calcium Magnesium Total Bilirubin AST ALT Alkaline Phosphatase Troponin I B-Natriuretic Peptide 804 H Total Protein Albumin Urine Color Yellow Urine Clarity Clear Urine pH 6.0 Ur Specific [place] 1.015 Urine Protein Negative Urine Glucose (UA) Negative Urine Ketones Negative Urine Occult Blood Negative Urine Nitrate Negative Urine Bilirubin Negative Urine Urobilinogen 0.2 Ur Leukocyte Esterase Negative Micro UA Comment Culture not ind Ur Microscopic Review Microscopic reviewed Urine Culture Comments Culture not ind - Imaging Impressions Chest X-Ray 02/28/18 10:25 CONCLUSION: Hypoaerated lungs with persistent interstitial prominence and mild scattered airspace disease. Caprini VTE Risk Assessment Caprini VTE Risk Assessment: Moderate/High Risk (score >= 2) Caprini Risk Assessment Model: Point Value = 1 Point Value = 2 Point Value = 3 Point Value = 5 Age 41-60 Minor surgery BMI > 25 kg/m2 Swollen legs Varicose veins or History of unexplained or recurrent spontaneous Oral contraceptives or hormone replacement Sepsis (< 1 month) Serious lung disease, including pneumonia (< 1 month) Abnormal pulmonary function Acute myocardial infarction Congestive heart failure (< 1 month) History of inflammatory bowel disease Medical patient at bed rest Age 61-74 Arthroscopic surgery Major open surgery (> 45 min) Laparoscopic surgery (> 45 min) Malignancy Confined to bed (> 72 hours) Immobilizing plaster cast Central venous access Age >= 75 History of VTE Family history of VTE Factor V Leiden Prothrombin [id number] Lupus anticoagulant Anticardiolipin antibodies Elevated serum homocysteine Heparin-induced thrombocytopenia Other congenital or acquired thrombophilia Stroke (< 1 month) Elective arthroplasty Hip, pelvis, or leg fracture Acute spinal cord injury (< 1 month) Prophylaxis Regimen: Total Risk Factor Score Risk Level Prophylaxis Regimen 0-1 Low Early ambulation 2 Moderate Order ONE of the following: *Sequential Compression Device (SCD) *Heparin 5000 units SQ BID 3-4 Higher Order ONE of the following medications: *Heparin 5000 units SQ TID *Enoxaparin/Lovenox 40 mg SQ daily (WT < 150 kg, CrCl > 30 mL/min) *Enoxaparin/Lovenox 30 mg SQ daily (WT < 150 kg, CrCl > 10-29 mL/min) *Enoxaparin/Lovenox 30 mg SQ BID (WT < 150 kg, CrCl > 30 mL/min) AND/OR *Sequential Compression Device (SCD) 5 or more Highest Order ONE of the following medications: *Heparin 5000 units SQ TID (Preferred with Epidurals) *Enoxaparin/Lovenox 40 mg SQ daily (WT < 150 kg, CrCl > 30 mL/min) *Enoxaparin/Lovenox 30 mg SQ daily (WT < 150 kg, CrCl > 10-29 mL/min) *Enoxaparin/Lovenox 30 mg SQ BID (WT < 150 kg, CrCl > 30 mL/min) AND *Sequential Compression Device (SCD) Assessment and Plan - Assessment (1) COPD with exacerbation Code(s): J44.1 - Chronic obstructive pulmonary disease with (acute) exacerbation Status: Acute (2) CHF exacerbation Code(s): I50.9 - Heart failure, unspecified Status: Acute - Plan This is an 82-year-old male patient with: COPD with exacerbation Acute on chronic respiratory insufficiency -Patient presents with a 2-month complaint of shortness of breath especially with exertion. -Chest x-ray reviewed showing cardiomegaly with interstitial prominence scattered airspace disease. -At baseline patient uses 3 L nasal cannula. Sees Dr. Kelly, pulmonary, who has been consulted. Input recommendations pending. -Duo nebs scheduled and as needed for shortness of breath and wheezing. -Methylprednisone IV scheduled. Add Mucinex. -Added azithromycin IV. Check sputum culture. -CBC, BMP and UA all reviewed and essentially unremarkable. -Supplemental O2 as needed, keep saturations above 92%. -Will continue to monitor. Supportive care. CHF, unspecified type, in exacerbation Bilateral lower extremity edema -BNP 804 presentation. She takes Lasix 40 mg at home. Does present with bilateral lower extremity swelling. -Will continue Lasix. -Monitor intake and output closely. -We will obtain echocardiogram. Follow. Atrial fibrillation on anticoagulation Coumadin at home -Patient presented with INR of 6.5. It should be noted that patient has not had an INR checked since October per report. -Will follow INR. Hold Coumadin for now. CAD history with CABG and cardiac stents Hypertension, chronic Recent TAVR in November -Will continue home medications including Plavix. -Monitor blood pressure trends. -Will attempt to get a hold of Dr. Cardenas for follow-up, patient has not had follow-up since November. Hypothyroidism, chronic: We will continue home levothyroxine. Follow closely with PCP. DVT perplexes: SCDs.
[2018-02-28] MEDS: MethylPREDNISolone Sod Succinate Inj 40 MG/ML Vial IV.PUSH SCH ×2 (15:17→20:14)
[2018-02-28] MEDS: Azithromycin Inj 500 MG in Sodium Chlor 0.9% Inj 250 ML IV.SIG SCH (15:17)
[2018-02-28] MEDS: guaiFENesin 600 MG ER Tablet PO SCH (20:14)
[2018-03-01] MEDS: MethylPREDNISolone Sod Succinate Inj 40 MG/ML Vial IV.PUSH SCH ×4 (02:26→20:28)
[2018-03-01 06:06] LABS: Chloride 100 meq/L (98-107); Potassium 4.2 meq/L (3.5-5.1); Sodium 139 meq/L (136-145)
[2018-03-01 06:11] LABS: Anion Gap 7 meq/L (5-15); Blood Urea Nitrogen 14 mg/dL (7-18); Carbon Dioxide 31.8 meq/L (21.0-32.0); Glucose,Random 153 mg/dL (74-106)
[2018-03-01 06:14] LABS: Glomerular Filtration Rate Greater Than 89 mL/min (>89)
[2018-03-01 06:29] LABS: Baso % (Auto) 0.7 % (0.0-2.0); Hematocrit 36.5 % (39.0-51.0); Hemoglobin 11.5 gm/dL (13.0-17.0); Lymph # (Auto) 0.4 th/mm3 (1.0-4.8); Lymph % (Auto) 8.5 % (9.0-44.0); Mean Corpuscular HGB Conc 31.5 % (32.0-36.0); Mean Corpuscular Hemoglobin 28.7 pg (27.0-34.0); Mono # (Auto) 0.1 th/mm3 (0.0-0.9); Mono % (Auto) 1.1 % (0.0-8.0); Neut # (Auto) 4.2 th/mm3 (1.8-7.7); Neut % (Auto) 89.7 % (16.0-70.0); Platelet Count 250 th/mm3 (150-450); Red Cell Distribution Width 14.8 % (11.6-17.2); White Blood Count 4.7 th/mm3 (4.0-11.0)
[2018-03-01 07:41] LABS: INR 4.9 Ratio; Prothrombin Time 48.8 sec (9.8-11.6)
[2018-03-01] MEDS: Levothyroxine 50 MCG Tablet PO SCH (08:00)
--- NOTE | 2018-03-01 08:01 | P.PNIM ---
Subjective Interval history: Follow-up COPD exacerbation CHF exacerbation. Patient seen and examined, lying in bed comfortably no apparent distress. Patient's heart rate is in the 140s, found to be in atrial fibrillation RVR. Stat as well as resumed home medications. Patient will be moved to ICU for closer monitoring. His heart rate should improve once home medications are restarted. Patient is completely asymptomatic. States he feels this way often at home. Physical Exam Vital signs: Vital Signs 02/28/18 10:06 02/28/18 10:35 02/28/18 10:55 Temperature 97.5 F L Pulse Rate 109 H 86 94 H Respiratory Rate 20 19 Blood Pressure 149/67 H Pulse Oximetry 95 98 02/28/18 11:25 02/28/18 11:26 02/28/18 12:00 Temperature Pulse Rate 93 H 90 Respiratory Rate 18 16 Blood Pressure 126/97 H 135/80 Pulse Oximetry 97 97 98 02/28/18 13:16 02/28/18 13:45 02/28/18 15:19 Temperature 96.1 F L Pulse Rate 102 H 93 H Respiratory Rate 20 22 Blood Pressure 143/72 H Pulse Oximetry 100 100 02/28/18 15:23 02/28/18 16:00 02/28/18 19:35 Temperature 98 F Pulse Rate 102 H 78 Respiratory Rate 20 18 Blood Pressure 144/63 H Pulse Oximetry 99 99 94 L 02/28/18 20:00 02/28/18 23:27 03/01/18 00:00 Temperature 97.4 F L 97 F L Pulse Rate 110 H 115 H 120 H Respiratory Rate 18 18 Blood Pressure 136/74 117/91 H Pulse Oximetry 94 L 97 03/01/18 03:52 03/01/18 04:00 03/01/18 07:20 Temperature 96.4 F L Pulse Rate 120 H 114 H 105 H Respiratory Rate 18 18 Blood Pressure 114/89 Pulse Oximetry 98 96 Intake & Output 02/28/18 03/01/18 03/01/18 18:59 06:59 18:59 Intake Total 710 / 710 Output Total 200 / 200 700 / 700 Balance 510 / 510 -700 / -700 Weight 98 kg 91.9 kg Intake: IV 350 / 350 Azithromycin Inj 500 MG In NS 250 / 250 Inj 250 ML @ 250 mls/hr IV.SIG Q24H [facility] Rx#:[id number] Rocephin Inj 1,000 MG In NS Inj 100 / 100 100 ML @ 200 mls/hr IV.SIG ONCE ONE Rx#:[id number] Oral 360 / 360 Output: Urine 200 / 200 700 / 700 Other: Date of Last Bowel Movement 02/28/18 Narrative: GENERAL: Well-developed, well-nourished elderly male patient in NAD. On supplemental O2 SKIN: Warm and dry. No rash. Left posterior healing wound on calf, clean dry and intact roughly 1 1/2 x 1 1/2 cm. Also has an anterior healing ulcer of the left ankle, roughly 1x1cm. HEAD: Normocephalic. Atraumatic. EYES: Pupils equal and round. No scleral icterus. No injection or drainage. ENT: No nasal bleeding or discharge. Mucous membranes pink and moist. NECK: Supple. Trachea midline. CARDIOVASCULAR: Irregularly irregular rhythm. No murmur appreciated. RESPIRATORY: No accessory muscle use. Wheezing noted throughout. Breath sounds equal bilaterally. GASTROINTESTINAL: Abdomen soft, non-tender, nondistended. Normoactive bowel sounds x4. MUSCULOSKELETAL: No obvious deformities. Extremities without clubbing, cyanosis. Bilateral lower extremity edema, 2+ pitting NEUROLOGICAL: Awake and alert. No obvious cranial nerve deficits. Motor grossly within normal limits. 5/5 muscle strength in bilateral upper and lower extremities. Normal speech. PSYCHIATRIC: Appropriate mood and affect; insight and judgment normal. Results - Labs CBC & Chem 7: 03/01/18 04:20 03/01/18 04:20 Laboratory Results - last 24 hr 02/28/18 02/28/18 02/28/18 10:25 10:25 10:25 CBC w Diff Auto diff final WBC 8.9 RBC 4.06 L Hgb 12.0 L Hct 37.8 L MCV 93.0 MCH 29.6 MCHC 31.8 L RDW 15.3 Plt Count 307 MPV 8.1 Neut % (Auto) 65.2 Lymph % (Auto) 13.7 [place] % (Auto) 14.1 H Eos % (Auto) 5.9 H Baso % (Auto) 1.1 Neut # (Auto) 5.8 Lymph # (Auto) 1.2 [place] # (Auto) 1.3 H Eos # (Auto) 0.5 H Baso # (Auto) 0.1 WBC Differential . Differential Comment . PT 65.3 H INR 6.5 H* APTT 56.5 H Puncture Site Patient Temperature O2 Saturation ABG pH ABG pCO2 ABG pO2 ABG HCO3 ABG O2 Content ABG Base Excess ABG Methemoglobin Isrrael Test Hemoglobin Carboxyhemoglobin O2 Delivery Device Liter Flow Critical Value Sodium 140 Potassium 3.7 Chloride 100 Carbon Dioxide 32.7 H Anion Gap 7 BUN 10 Creatinine 0.70 Estimated GFR Greater than 89 POC Glucose Random Glucose 87 Calcium 8.3 L Magnesium 1.6 Total Bilirubin 1.0 AST 37 ALT 18 Alkaline Phosphatase 93 Troponin I Less than 0.02 L B-Natriuretic Peptide Total Protein 7.0 Albumin 2.5 L Urine Color Urine Clarity Urine pH Ur Specific [place] Urine Protein Urine Glucose (UA) Urine Ketones Urine Occult Blood Urine Nitrate Urine Bilirubin Urine Urobilinogen Ur Leukocyte Esterase Micro UA Comment Ur Microscopic Review Urine Culture Comments 02/28/18 02/28/18 02/28/18 10:25 11:20 11:35 CBC w Diff WBC RBC Hgb Hct MCV MCH MCHC RDW Plt Count MPV Neut % (Auto) Lymph % (Auto) [place] % (Auto) Eos % (Auto) Baso % (Auto) Neut # (Auto) Lymph # (Auto) [place] # (Auto) Eos # (Auto) Baso # (Auto) WBC Differential Differential Comment PT INR APTT Puncture Site Right radial Patient Temperature 98.6 O2 Saturation 92 ABG pH 7.42 ABG pCO2 49 H ABG pO2 73 ABG HCO3 31 H ABG O2 Content 14.7 ABG Base Excess 6.6 H ABG Methemoglobin 1.1 Isr[place] Test Present Hemoglobin 11.3 L Carboxyhemoglobin 1.9 O2 Delivery Device Nasal cannula Liter Flow 3.00 Critical Value No Sodium Potassium Chloride Carbon Dioxide Anion Gap BUN Creatinine Estimated GFR POC Glucose Random Glucose Calcium Magnesium Total Bilirubin AST ALT Alkaline Phosphatase Troponin I B-Natriuretic Peptide 804 H Total Protein Albumin Urine Color Yellow Urine Clarity Clear Urine pH 6.0 Ur Specific [place] 1.015 Urine Protein Negative Urine Glucose (UA) Negative Urine Ketones Negative Urine Occult Blood Negative Urine Nitrate Negative Urine Bilirubin Negative Urine Urobilinogen 0.2 Ur Leukocyte Esterase Negative Micro UA Comment Culture not ind Ur Microscopic Review Microscopic reviewed Urine Culture Comments Culture not ind 02/28/18 03/01/18 03/01/18 23:17 04:20 04:20 CBC w Diff Auto diff final WBC 4.7 RBC 4.00 L Hgb 11.5 L Hct 36.5 L MCV 91.0 MCH 28.7 MCHC 31.5 L RDW 14.8 Plt Count 250 MPV 8.0 Neut % (Auto) 89.7 H Lymph % (Auto) 8.5 L [place] % (Auto) 1.1 Eos % (Auto) 0.0 Baso % (Auto) 0.7 Neut # (Auto) 4.2 Lymph # (Auto) 0.4 L [place] # (Auto) 0.1 Eos # (Auto) 0.0 Baso # (Auto) 0.0 WBC Differential . Differential Comment . PT INR APTT Puncture Site Patient Temperature O2 Saturation ABG pH ABG pCO2 ABG pO2 ABG HCO3 ABG O2 Content ABG Base Excess ABG Methemoglobin Isrrael Test Hemoglobin Carboxyhemoglobin O2 Delivery Device Liter Flow Critical Value Sodium 139 Potassium 4.2 Chloride 100 Carbon Dioxide 31.8 Anion Gap 7 BUN 14 Creatinine 0.73 Estimated GFR Greater than 89 POC Glucose 171 H Random Glucose 153 H Calcium 8.0 L Magnesium Total Bilirubin AST ALT Alkaline Phosphatase Troponin I B-Natriuretic Peptide Total Protein Albumin Urine Color Urine Clarity Urine pH Ur Specific [place] Urine Protein Urine Glucose (UA) Urine Ketones Urine Occult Blood Urine Nitrate Urine Bilirubin Urine Urobilinogen Ur Leukocyte Esterase Micro UA Comment Ur Microscopic Review Urine Culture Comments Microbiology 02/28/18 11:35 Nasal Wash Influenza Types A,B Antigen - Final Negative for FLU A and B antigen Infection due to influenza A or B cannot be ruled out since the antigen present in the sample may be below the detection limit of the test. - Imaging Impressions Chest X-Ray 02/28/18 10:25 CONCLUSION: Hypoaerated lungs with persistent interstitial prominence and mild scattered airspace disease. Assessment and Plan - Assessment (1) COPD with exacerbation Code(s): J44.1 - Chronic obstructive pulmonary disease with (acute) exacerbation Status: Acute (2) CHF exacerbation Code(s): I50.9 - Heart failure, unspecified Status: Acute - Plan This is an 82-year-old male patient with: COPD with exacerbation Acute on chronic respiratory insufficiency -Patient presents with a 2-month complaint of shortness of breath especially with exertion. -Chest x-ray reviewed showing cardiomegaly with interstitial prominence scattered airspace disease. -At baseline patient uses 3 L nasal cannula. Sees Dr. Kelly, pulmonary, who has been consulted. Input & recommendations pending. -Duo nebs scheduled and as needed for shortness of breath and wheezing. -Methylprednisone IV scheduled. Continue Mucinex. -Continue Azithromycin IV. Check sputum culture. -CBC, BMP and UA all reviewed and essentially unremarkable. -Supplemental O2 as needed, keep saturations above 92%. -Will continue to monitor. Supportive care. CHF, unspecified type, in exacerbation Bilateral lower extremity edema -BNP 804 presentation. He takes Lasix 40 mg at home. Does present with bilateral lower extremity swelling. -Will continue Lasix 40 mg IV daily. -Monitor intake and output closely. -Will obtain echocardiogram. Follow. Atrial fibrillation in RVR Atrial fibrillation on anticoagulation on Coumadin at home -Patient presented with INR of 6.5. It should be noted that patient has not had an INR checked since October per report. -Will follow INR. Hold Coumadin for now. -Patient's heart rate is in the 140s this morning. EKG done showing atrial fibrillation RVR. Resume home medications. Assess response. May need Cardizem drip. -Will transfer to ICU for closer monitoring. CAD history with CABG and cardiac stents Hypertension, chronic Recent TAVR in November -Will continue home medications including Plavix. -Monitor blood pressure trends. -Spoke to TAVR liaison this morning, will order for interrogation of pacemaker. -Patient will make an appointment for follow up with Dr. Cardenas once discharged. Hypothyroidism, chronic: Will continue home levothyroxine. Follow closely with PCP. DVT perplexes: SCDs.
[2018-03-01] MEDS: Ferrous Sulfate 325 MG Tablet PO SCH (08:06)
[2018-03-01] MEDS: FLUoxetine 20 MG Capsule PO SCH (08:06)
[2018-03-01] MEDS: clonazePAM 1 MG Tablet PO SCH (08:07)
[2018-03-01] MEDS: Metoprolol Tartrate 50 MG Tablet PO SCH ×3 (08:07→20:28)
[2018-03-01] MEDS: guaiFENesin 600 MG ER Tablet PO SCH ×2 (08:07→20:28)
[2018-03-01] MEDS ORDERED: dilTIAZem Inj 125 MG in Sodium Chlor 0.9% Inj 100 ML IV.CONT PRN (09:00)
--- NOTE | 2018-03-01 10:44 | ECG ---
Date Performed: 03/01/2018 Time Performed: 07:52:25 PTAGE: 82 years EKG: ATRIAL FIBRILLATION WITH RAPID VENTRICULAR RESPONSE LEFT AXIS DEVIATION LEFT BUNDLE BRANCH BLOCK ABNORMAL ECG PREVIOUS TRACING : 02/28/2018 10.16 Compared to previous tracing, heart rate has increased. DOCTOR: Lew Carmona Interpretating Date/Time 03/01/2018 10:44:09
--- NOTE | 2018-03-01 13:31 | ECHRPT ---
Indication: HEART FAILURE CONCLUSIONS The left ventricular systolic function is moderately to severely reduced with an estimated ejection fraction in the range of 30-35%. Normal left ventricular size. Wall thickness is normal. There is global left ventricular dysfunction. The right ventriclar size is upper limits of normal. The left atrial size is moderately dilated. The right atrial size is [id number] dilated. Trace mitral valve regurgitation. Mitral annular calcification is present. Trace aortic valve regurgitation. The aortic prosthesis is not well visualized. There is mild tricuspid valve regurgitation. The estimated pulmonary arterial pressure is 71 mmHg. BP: / HR: Rhythm: Atrial fibrillation MEASUREMENTS (Male / Female) Normal Values Technical Quality:Good 2D ECHO LV Diastolic Diameter PLAX 5.4 cm 4.2 - 5.9 / 3.9 - 5.3 cm LV Systolic Diameter PLAX 4.8 cm IVS Diastolic Thickness 1.1 cm 0.6 - 1.0 / 0.6 - 0.9 cm LVPW Diastolic Thickness 1.0 cm 0.6 - 1.0 / 0.6 - 0.9 cm LV Relative Wall Thickness 0.4 LVOT Diameter 1.7 cm LA Systolic Diameter LX 5.2 cm 3.0 - 4.0 / 2.7 - 3.8 cm LV Ejection Fraction MOD 4C 34.8 % LV Ejection Fraction 4C AL 35.2 % DOPPLER AV Peak Velocity 188.3 cm/s AV Peak Gradient 14.2 mmHg AV Mean Gradient 7.3 mmHg AV Velocity Time Integral 26.9 cm AI Peak Velocity 204.0 cm/s AI Peak Gradient 16.6 mmHg AI Pressure Half Time 501.5 ms LVOT Peak Velocity 86.0 cm/s LVOT Peak Gradient 3.0 mmHg LVOT Velocity Time Integral 13.7 cm AV Area Cont Eq vti 1.2 cm AV Area Cont Eq pk 1.0 cm MV Area PHT 4.9 cm LV E' Lateral Velocity 3.9 cm/s LV E' Septal Velocity 3.3 cm/s TR Peak Velocity 390.0 cm/s TR Peak Gradient 60.8 mmHg Right Atrial Pressure 10.0 mmHg Pulmonary Artery Systolic Pressu 70.8 mmHg Right Ventricular Systolic Press 70.8 mmHg PV Peak Velocity 77.4 cm/s PV Peak Gradient 2.4 mmHg FINDINGS LEFT VENTRICLE The left ventricular systolic function is moderately to severely reduced with an estimated ejection fraction in the range of 30-35%. Normal left ventricular size. Wall thickness is normal. There is global left ventricular dysfunction. RIGHT VENTRICLE The right ventriclar size is upper limits of normal. LEFT ATRIUM The left atrial size is moderately dilated. RIGHT ATRIUM The right atrial size is [id number] dilated. ATRIAL SEPTUM Normal atrial septal thickness without atrial level shunting by limited color doppler interrogation. AORTA The aortic root and proximal ascending aorta are normal in size on limited imaging. MITRAL VALVE Structurally normal mitral valve. Trace mitral valve regurgitation. Mitral annular calcification is present. AORTIC VALVE The aortic valve is not well visualized. Trace aortic valve regurgitation. The aortic prosthesis is not well visualized. TRICUSPID VALVE Structurally normal tricuspid valve. There is mild tricuspid valve regurgitation. The estimated pulmonary arterial pressure is 70.8 mmHg. PULMONARY VALVE No pulmonary valve regurgitation or stenosis. VESSELS The inferior vena cava was not well visualized. PERICARDIUM No pericardial effusion. Shaheen Rosa MD, FACC (Electronically Signed) Final Date:01 March 2018 13:30
[2018-03-01] MEDS: Azithromycin Inj 500 MG in Sodium Chlor 0.9% Inj 250 ML IV.SIG SCH (15:26)
--- NOTE | 2018-03-01 21:55 | MB ---
cc: Robin Kelly MD DATE: 03/01/2018 REASON FOR CONSULTATION: COPD exacerbation, respiratory failure, congestive heart failure. HISTORY OF PRESENT ILLNESS: Mr. Hurd is an 82-year-old male with known history of COPD, hypertension, hyperlipidemia, hypothyroidism, and coronary artery disease, recent TAVR in November of this year. The patient came to the office 02/28/2018 complaining of increasing shortness of breath, increasing ankle edema, felt to have an element of congestive heart failure. His ejection fraction is reduced by previous echocardiography. PAST MEDICAL HISTORY: COPD, hypertension, hyperlipidemia, hypothyroidism, coronary artery disease, status post TAVR, had the CABG in the past as well as stent placement, atrial fibrillation on long-term anticoagulant therapy and congestive heart failure. SOCIAL HISTORY: Remote smoking history, and does not smoke at present. FAMILY HISTORY: Noncontributory. REVIEW OF SYSTEMS: A 12-point review of systems as per HPI and past history, otherwise negative. CURRENT MEDICATIONS: Include: 1. Nebulized albuterol. 2. Zithromax. 3. Ceftriaxone. 4. Clopidogrel. 5. Diltiazem. 6. Ferrous sulfate. 7. Fluoxetine. 8. Breo Ellipta. 9. Levothyroxine. 10. Losartan. 11. Solu-Medrol. ALLERGIES: SULFA DRUGS, TETRACYCLINE. SYSTEMS REVIEW: A 12-point review of systems as per HPI and past history, otherwise negative. PHYSICAL EXAMINATION: VITAL SIGNS: Temperature 98, pulse 70, respirations 20, blood pressure 120/50, oxygen saturation 94% on 2 liters oxygen nasal cannula. HEENT: Unremarkable. Eyes without icterus. NECK: Without adenopathy, thyroid enlargement. Central trachea. CHEST: Few scattered rhonchi at bases. CARDIAC: Irregularity noted. ABDOMEN: Obese, lax. Bowel sounds are audible. EXTREMITIES: No clubbing or cyanosis, with 1+ edema. LABORATORY DATA: White count 4.7, hemoglobin 11, hematocrit 36, platelets 250,000. INR 4.9, was 6.5 on admission. ABG pH 7.42, pCO2 of 49, pO2 73 on 3 liters oxygen nasal cannula. Sodium 139, potassium 4.2, BUN 14, creatinine 0.7. Chest x-ray upon presentation with interstitial prominence noted. IMPRESSION: 1. Chronic obstructive pulmonary disease exacerbation. 2. Congestive heart failure. 3. Coronary artery disease. 4. Atrial fibrillation. 5. Hypertension. 6. Hyperlipidemia. PLAN: The patient will be maintained on oxygen therapy as needed, bronchodilators, continue therapy for underlying congestive heart failure. A cardiac evaluation would be appropriate at this time. We will follow his course along with you and, depending on progress, proceed further. I do thank you for asking me to participate in Mr. Hurd' care. Robin Kelly MD WWW/choco , 07:42 PM , 07:50 PM
[2018-03-02] MEDS: MethylPREDNISolone Sod Succinate Inj 40 MG/ML Vial IV.PUSH SCH ×4 (02:23→19:42)
[2018-03-02] MEDS: Levothyroxine 50 MCG Tablet PO SCH (05:52)
[2018-03-02] MEDS: guaiFENesin 600 MG ER Tablet PO SCH ×2 (08:27→20:51)
[2018-03-02] MEDS: clonazePAM 1 MG Tablet PO SCH (08:27)
[2018-03-02] MEDS: FLUoxetine 20 MG Capsule PO SCH (08:27)
[2018-03-02] MEDS: Metoprolol Tartrate 50 MG Tablet PO SCH ×2 (08:27→20:52)
[2018-03-02] MEDS: Ferrous Sulfate 325 MG Tablet PO SCH (08:28)
[2018-03-02 08:51] LABS: INR 3.8 Ratio
--- NOTE | 2018-03-02 11:27 | P.PNIM ---
Subjective Interval history: Follow-up COPD exacerbation, CHF exacerbation. Patient seen and examined, lying in bed comfortably, continued on 3 L nasal cannula which is baseline for patient. During conversation patient does seem to be winded and short of breath. RN at bedside. Is diuresing well. Negative fluid balance. Pulmonary in to see patient, appreciate input and recommendations. Physical Exam Vital signs: Vital Signs 03/01/18 12:00 03/01/18 12:02 03/01/18 13:00 Temperature Pulse Rate 74 72 72 Respiratory Rate 34 H 28 H 27 H Blood Pressure 119/63 Pulse Oximetry 92 L 95 93 L 03/01/18 13:45 03/01/18 16:00 03/01/18 19:08 Temperature Pulse Rate 70 72 80 Respiratory Rate 19 24 23 Blood Pressure 119/54 L Pulse Oximetry 94 L 95 03/01/18 20:00 03/02/18 00:00 03/02/18 04:00 Temperature 97.9 F 97.9 F 98.7 F Pulse Rate 83 83 74 Respiratory Rate 25 H 25 H 26 H Blood Pressure 114/70 114/70 Pulse Oximetry 94 L 92 L 94 L 03/02/18 07:43 Temperature Pulse Rate 92 H Respiratory Rate 22 Blood Pressure Pulse Oximetry 95 Intake & Output 03/01/18 03/02/18 03/02/18 18:59 06:59 18:59 Intake Total 350 / 350 360 / 360 Output Total 640 / 640 400 / 400 Balance -290 / -290 -40 / -40 Weight 92.2 kg Intake: IV 350 / 350 Azithromycin Inj 500 MG In NS 250 / 250 Inj 250 ML @ 250 mls/hr IV.SIG Q24H [facility]KY Rx#:[id number] Rocephin Inj 1,000 MG In NS Inj 100 / 100 100 ML @ 200 mls/hr IV.SIG Q24H [facility]ECKY Rx#:[id number] Oral 360 / 360 Output: Urine 640 / 640 400 / 400 Other: Date of Last Bowel Movement 03/02/18 # Bowel Movements 1 Narrative: GENERAL: Well-developed, well-nourished elderly male patient in NAD. On supplemental O2 SKIN: Warm and dry. No rash. Left posterior healing wound on calf, clean dry and intact roughly 1 1/2 x 1 1/2 cm. Also has an anterior healing ulcer of the left ankle, roughly 1x1cm. HEAD: Normocephalic. Atraumatic. EYES: Pupils equal and round. No scleral icterus. No injection or drainage. ENT: No nasal bleeding or discharge. Mucous membranes pink and moist. NECK: Supple. Trachea midline. CARDIOVASCULAR: Irregularly irregular rhythm. No murmur appreciated. RESPIRATORY: No accessory muscle use. cta. Breath sounds equal bilaterally. GASTROINTESTINAL: Abdomen soft, non-tender, nondistended. Normoactive bowel sounds x4. MUSCULOSKELETAL: No obvious deformities. Extremities without clubbing, cyanosis. Bilateral lower extremity edema, trace, improved. NEUROLOGICAL: Awake and alert. No obvious cranial nerve deficits. Motor grossly within normal limits. 5/5 muscle strength in bilateral upper and lower extremities. Normal speech. PSYCHIATRIC: Appropriate mood and affect; insight and judgment normal. Results - Labs CBC & Chem 7: 03/01/18 04:20 03/01/18 04:20 Laboratory Results - last 24 hr 03/01/18 03/02/18 03/02/18 21:20 07:13 08:20 PT 38.0 H D INR 3.8 POC Glucose 160 H 147 H 03/02/18 11:08 PT INR POC Glucose 148 H Microbiology 02/28/18 10:45 Blood - Peripheral Aerobic Blood Culture - Preliminary No growth in 2 days 02/28/18 10:45 Blood - Peripheral Anaerobic Blood Culture - Preliminary No growth in 2 days 02/28/18 10:15 Blood - Peripheral Aerobic Blood Culture - Preliminary No growth in 2 days 02/28/18 10:15 Blood - Peripheral Anaerobic Blood Culture - Preliminary No growth in 2 days Assessment and Plan - Assessment (1) COPD with exacerbation Code(s): J44.1 - Chronic obstructive pulmonary disease with (acute) exacerbation Status: Acute (2) CHF exacerbation Code(s): I50.9 - Heart failure, unspecified Status: Acute - Plan This is an 82-year-old male patient with: COPD with exacerbation, improving Acute on chronic respiratory insufficiency -Patient presents with a 2-month complaint of shortness of breath especially with exertion. -Chest x-ray reviewed showing cardiomegaly with interstitial prominence scattered airspace disease. -At baseline patient uses 3 L nasal cannula. Sees Dr. Kelly, pulmonary, who has been consulted. Input & recommendations appreciated. Recommendations for cardiology consult. -Duo nebs scheduled and as needed for shortness of breath and wheezing. -Methylprednisone IV scheduled. Continue Mucinex. -Continue Azithromycin IV and Ceftriaxone. -CBC, BMP and UA all reviewed and essentially unremarkable. -Supplemental O2 as needed, keep saturations above 92%. -Will continue to monitor. Supportive care. CHF, systolic, in exacerbation Bilateral lower extremity edema, improved. -BNP 804 presentation. He takes Lasix 40 mg at home. Does present with bilateral lower extremity swelling which has improved. -Will continue Lasix 40 mg IV daily. -Monitor intake and output closely. Diuresing well. -ECHO showing EF 35%. trace mitral and aortic valve regurgitation. Pulmonary atrial pressure 71. -Cardiology consulted, follows with Dr. Harvey, input and recommendations pending. Atrial fibrillation in RVR, improved. Atrial fibrillation on anticoagulation on Coumadin at home -Patient presented with INR of 6.5. It should be noted that patient has not had an INR checked since October per report. -Will follow INR. 3.8 today. Continue to hold Coumadin, resume when < 3. CAD history with CABG and cardiac stents Hypertension, chronic Recent TAVR in November -Will continue home medications including Plavix. -Monitor blood pressure trends. -Spoke to TAVR liaison this morning, pacemaker interrogated. -Patient will make an appointment for follow up with Dr. Cardenas once discharged. Hypothyroidism, chronic: Will continue home levothyroxine. Follow closely with PCP. DVT perplexes: SCDs. Discharge Planning: Monitor for clinical improvement.
[2018-03-02] MEDS: Azithromycin Inj 500 MG in Sodium Chlor 0.9% Inj 250 ML IV.SIG SCH (14:34)
--- NOTE | 2018-03-02 15:03 | P.PN ---
Subjective Interval history: ALERT LESS SOB ON O2 NC Physical Exam Vital signs: Vital Signs 03/01/18 16:00 03/01/18 19:08 03/01/18 20:00 Temperature 97.9 F Pulse Rate 72 80 83 Respiratory Rate 24 23 25 H Blood Pressure 119/54 L 114/70 Pulse Oximetry 94 L 95 94 L 03/02/18 00:00 03/02/18 04:00 03/02/18 07:43 Temperature 97.9 F 98.7 F Pulse Rate 83 74 92 H Respiratory Rate 25 H 26 H 22 Blood Pressure 114/70 Pulse Oximetry 92 L 94 L 95 03/02/18 08:00 03/02/18 14:30 Temperature Pulse Rate 92 H Respiratory Rate 20 Blood Pressure Pulse Oximetry 95 Intake & Output 03/01/18 03/02/18 03/02/18 18:59 06:59 18:59 Intake Total 350 / 350 360 / 360 100 / 100 Output Total 640 / 640 400 / 400 Balance -290 / -290 -40 / -40 100 / 100 Weight 92.2 kg Intake: IV 350 / 350 100 / 100 Azithromycin Inj 500 MG In NS 250 / 250 Inj 250 ML @ 250 mls/hr IV.SIG Q24H [facility]KY Rx#:[id number] Rocephin Inj 1,000 MG In NS Inj 100 / 100 100 / 100 100 ML @ 200 mls/hr IV.SIG Q24H [facility]KY Rx#:[id number] Oral 360 / 360 Output: Urine 640 / 640 400 / 400 Other: Date of Last Bowel Movement 03/02/18 # Bowel Movements 1 Narrative: GENERAL: Well-developed, well-nourished elderly male patient in [facility]. On supplemental O2 SKIN: Warm and dry. No rash. Left posterior healing wound on calf, clean dry and intact roughly 1 1/2 x 1 1/2 cm. Also has an anterior healing ulcer of the left ankle, roughly 1x1cm. HEAD: Normocephalic. Atraumatic. EYES: Pupils equal and round. No scleral icterus. No injection or drainage. ENT: No nasal bleeding or discharge. Mucous membranes pink and moist. NECK: Supple. Trachea midline. CARDIOVASCULAR: Irregularly irregular rhythm. No murmur appreciated. RESPIRATORY: No accessory muscle use. cta. Breath sounds equal bilaterally. GASTROINTESTINAL: Abdomen soft, non-tender, nondistended. Normoactive bowel sounds x4. MUSCULOSKELETAL: No obvious deformities. Extremities without clubbing, cyanosis. Bilateral lower extremity edema, trace, improved. NEUROLOGICAL: Awake and alert. No obvious cranial nerve deficits. Motor grossly within normal limits. 5/5 muscle strength in bilateral upper and lower extremities. Normal speech. PSYCHIATRIC: Appropriate mood and affect; insight and judgment normal. Results - Labs CBC & Chem 7: 03/01/18 04:20 03/01/18 04:20 Laboratory Results - last 24 hr 03/01/18 03/02/18 03/02/18 21:20 07:13 08:20 PT 38.0 H D INR 3.8 POC Glucose 160 H 147 H 03/02/18 11:08 PT INR POC Glucose 148 H Microbiology 02/28/18 10:45 Blood - Peripheral Aerobic Blood Culture - Preliminary No growth in 2 days 02/28/18 10:45 Blood - Peripheral Anaerobic Blood Culture - Preliminary No growth in 2 days 02/28/18 10:15 Blood - Peripheral Aerobic Blood Culture - Preliminary No growth in 2 days 02/28/18 10:15 Blood - Peripheral Anaerobic Blood Culture - Preliminary No growth in 2 days Assessment and Plan - Plan COPD EXACERBATION, IMPROVED CHF, RESPONDING WELL TO DIURETICS RESPIRATORY FAILURE ON O2 PLAN O2 NEEDED BRONCHODILATOR THERAPY THERAPY FOR CHF INCREASE ACTIVITY
--- NOTE | 2018-03-02 17:38 | MB ---
cc: Alexis Hernandez MD DATE: 03/02/2018 REASON FOR CONSULTATION: CHF. HISTORY OF PRESENT ILLNESS: The patient is an 82-year-old gentleman who has a complex cardiac history including coronary artery disease, aortic stenosis, status post TAVR and Micra pacemaker insertion. The patient's is at bedside and provides the history as the patient is somnolent and not answering questions. She gives a very clear and detailed history of a steady decline over the last 3-6 months with repeated hospitalizations for CHF, pneumonia and COPD. The patient apparently sleep 23 hours a day frequently and has only very limited periods of lucidity and wakefulness. The patient was admitted for worsening shortness of breath and I was consulted to give recommendations. PAST MEDICAL HISTORY: 1. Coronary artery disease, status post several recent stents. 2. COPD/pulmonary fibrosis, on home oxygen. 3. CABG. 4. Atrial fibrillation, on Coumadin. CURRENT MEDICATIONS: 1. Atorvastatin. 2. Azithromycin. 3. Ceftriaxone. 4. Klonopin. 5. Plavix 75 mg daily. 6. IV Cardizem 7. Prozac 20 mg daily. 8. Lasix 40 mg IV daily. 9. Lactulose. 10. Synthroid. 11. Cozaar. 12. Lopressor 25 mg b.i.d. ALLERGIES: SULFA AND TETRACYCLINE. PHYSICAL EXAMINATION: VITAL SIGNS: Temperature 99.1, pulse 82, respiratory rate 29, BP 112/77, saturating 95 on 3 liters. GENERAL: Somnolent, elderly, chronically ill-appearing gentleman, but in no acute distress. NECK: JVP is elevated, though he is supine. LUNGS: Decreased breath sounds in all schuler. HEART: Irregularly irregular rhythm. No major murmurs appreciated. ABDOMEN: Benign. EXTREMITIES: No edema. LABORATORY DATA: White count 4.7, hematocrit 36.5, platelets 250. INR 3.8. Sodium 139, potassium 4.2, chloride 100, bicarbonate 31.8, BUN 14, creatinine 0.73. EKG showed atrial flutter at a rate of 140, with left bundle branch block. Current telemetry shows rate controlled atrial flutter in the 80s. Echocardiogram shows an ejection fraction of 30% to 35% with significant pulmonary hypertension with a PA pressure of 71 mmHg. There was only trace aortic regurgitation, but the actual aortic prosthesis was not well visualized. IMPRESSION: Congestive heart failure. The patient likely has a combination of chronic obstructive pulmonary disease/congestive heart failure exacerbation and he is currently on IV Lasix. His vitals are actually pretty stable right now; however, he is quite somnolent and the patient's family says this is pretty close to his baseline. They are amenable to hospice and the daughter particularly is quite reasonable with regard to her expectations and both the patient's and daughter feel that hospice would be appropriate at this time and request [facility]. Otherwise, we will continue his current medical therapy for now, but I agree that given his multiple medical problems including a low ejection fraction, pulmonary hypertension, pulmonary fibrosis and his advanced age, his long-term prognosis is rather poor. Thank you again for the opportunity to participate in this patient's care. Alexis Hernandez MD ALAYNA/oliver , 04:13 PM , 04:21 PM
[2018-03-03] MEDS: MethylPREDNISolone Sod Succinate Inj 40 MG/ML Vial IV.PUSH SCH ×3 (01:50→20:56)
[2018-03-03] MEDS: Levothyroxine 50 MCG Tablet PO SCH (05:34)
[2018-03-03] MEDS: Ferrous Sulfate 325 MG Tablet PO SCH (10:32)
[2018-03-03] MEDS: guaiFENesin 600 MG ER Tablet PO SCH ×2 (10:32→20:58)
[2018-03-03] MEDS: Metoprolol Tartrate 50 MG Tablet PO SCH ×2 (10:32→20:57)
[2018-03-03] MEDS: FLUoxetine 20 MG Capsule PO SCH (10:33)
[2018-03-03] MEDS: clonazePAM 1 MG Tablet PO SCH (10:33)
--- NOTE | 2018-03-03 11:40 | P.PNIM ---
Subjective Interval history: Follow-up COPD exacerbation/CHF exacerbation. Patient sitting in chair comfortably no apparent distress. at bedside and updated. Cardiology and to see patient yesterday, requesting hospice. and patient have agreed on [facility]. Awaiting for liaison. Will speak with case management to assist. Otherwise patient is feeling much improved, is less short of breath. Eating and drinking well without any nausea or vomiting. Physical Exam Vital signs: Vital Signs 03/02/18 12:00 03/02/18 13:00 03/02/18 14:00 Temperature 99.1 F Pulse Rate 80 84 84 Respiratory Rate 27 H 27 H 29 H Blood Pressure 138/71 121/62 128/59 L Pulse Oximetry 95 95 94 L 03/02/18 14:30 03/02/18 16:00 03/02/18 19:25 Temperature Pulse Rate 92 H 82 85 Respiratory Rate 20 29 H 24 Blood Pressure 112/77 Pulse Oximetry 95 94 L 03/02/18 20:00 03/03/18 00:00 03/03/18 04:00 Temperature 98.3 F 98.3 F 97.9 F Pulse Rate 85 99 H 89 Respiratory Rate 27 H 18 22 Blood Pressure 107/61 140/73 144/78 H Pulse Oximetry 95 03/03/18 07:08 Temperature Pulse Rate 83 Respiratory Rate 20 Blood Pressure Pulse Oximetry 96 Intake & Output 03/02/18 03/03/18 03/03/18 18:59 06:59 18:59 Intake Total 1070 / 1070 120 / 120 Output Total 1900 / 1900 200 / 200 Balance -830 / -830 -80 / -80 Weight 92.7 kg Intake: IV 350 / 350 Azithromycin Inj 500 MG In NS 250 / 250 Inj 250 ML @ 250 mls/hr IV.SIG Q24H [facility] Rx#:[id number] Rocephin Inj 1,000 MG In NS Inj 100 / 100 100 ML @ 200 mls/hr IV.SIG Q24H [facility] Rx#:[id number] Oral 720 / 720 120 / 120 Output: Urine 1900 / 1900 200 / 200 Other: Date of Last Bowel Movement 03/02/18 03/03/18 # Bowel Movements 1 1 Narrative: GENERAL: Well-developed, well-nourished elderly male patient in NAD. On supplemental O2 SKIN: Warm and dry. No rash. Left posterior healing wound on calf, clean dry and intact roughly 1 1/2 x 1 1/2 cm. Also has an anterior healing ulcer of the left ankle, roughly 1x1cm. HEAD: Normocephalic. Atraumatic. EYES: Pupils equal and round. No scleral icterus. No injection or drainage. ENT: No nasal bleeding or discharge. Mucous membranes pink and moist. NECK: Supple. Trachea midline. CARDIOVASCULAR: Irregularly irregular rhythm. No murmur appreciated. RESPIRATORY: No accessory muscle use. cta. Breath sounds equal bilaterally. GASTROINTESTINAL: Abdomen soft, non-tender, nondistended. Normoactive bowel sounds x4. MUSCULOSKELETAL: No obvious deformities. Extremities without clubbing, cyanosis. Bilateral lower extremity edema, trace, improved. NEUROLOGICAL: Awake and alert. No obvious cranial nerve deficits. Motor grossly within normal limits. 5/5 muscle strength in bilateral upper and lower extremities. Normal speech. PSYCHIATRIC: Appropriate mood and affect; insight and judgment normal. Results - Labs CBC & Chem 7: 03/01/18 04:20 03/01/18 04:20 Laboratory Results - last 24 hr 03/02/18 03/02/18 03/03/18 17:38 19:49 08:35 POC Glucose 118 H 140 H 129 H Microbiology 02/28/18 10:45 Blood - Peripheral Aerobic Blood Culture - Preliminary No growth in 3 days 02/28/18 10:45 Blood - Peripheral Anaerobic Blood Culture - Preliminary No growth in 3 days 02/28/18 10:15 Blood - Peripheral Aerobic Blood Culture - Preliminary No growth in 3 days 02/28/18 10:15 Blood - Peripheral Anaerobic Blood Culture - Preliminary No growth in 3 days Assessment and Plan - Assessment (1) COPD with exacerbation Code(s): J44.1 - Chronic obstructive pulmonary disease with (acute) exacerbation Status: Acute (2) CHF exacerbation Code(s): I50.9 - Heart failure, unspecified Status: Acute - Plan This is an 82-year-old male patient with: COPD with exacerbation, improving Acute on chronic respiratory insufficiency -Patient presents with a 2-month complaint of shortness of breath especially with exertion. -Chest x-ray reviewed showing cardiomegaly with interstitial prominence scattered airspace disease. -At baseline patient uses 3 L nasal cannula. Sees Dr. Kelly, pulmonary, who has been consulted. -Input & recommendations appreciated. -Duo nebs scheduled and as needed for shortness of breath and wheezing. -Methylprednisone IV scheduled. Wean. Continue Mucinex. -Was started on azithromycin IV and Ceftriaxone. Change to p.o. -CBC, BMP and UA all reviewed and essentially unremarkable. -Supplemental O2 as needed, keep saturations above 92%. -Will continue to monitor. Supportive care. CHF, systolic, in exacerbation. Improved. Bilateral lower extremity edema, improved. -BNP 804 presentation. He takes Lasix 40 mg at home. Does present with bilateral lower extremity swelling which has improved. -Will continue Lasix 40 mg IV daily. -Monitor intake and output closely. Diuresing well. -ECHO showing EF 35%. trace mitral and aortic valve regurgitation. Pulmonary atrial pressure 71. -Cardiology consulted, follows with Dr. Harvey, appreciate input and recommendations. -Spoke to and patient, requesting hospice. Atrial fibrillation in RVR, resolved. Atrial fibrillation on anticoagulation on Coumadin at home -Patient presented with INR of 6.5. -Will follow INR. 3.8 yesterday, awaiting labs today. -Continue to hold Coumadin, resume when < 3. CAD history with CABG and cardiac stents Hypertension, chronic Recent TAVR in November -Will continue home medications including Plavix. -Monitor blood pressure trends. -Spoke to TAVR liaison this morning, pacemaker interrogated. -Patient will make an appointment for follow up with Dr. Cardenas once discharged. Hypothyroidism, chronic: Will continue home levothyroxine. Follow closely with PCP. DVT perplexes: SCDs. Hospice has been consulted. Patient and requesting [facility] hosp[facility]. Requesting to possibly go home on hospice. CM to assist. Discharge Planning: Hospice consulted.
[2018-03-03 15:27] LABS: Baso # (Auto) 0.3 th/mm3 (0.0-0.2); Baso % (Auto) 3.3 % (0.0-2.0); Eos % (Auto) 0.1 % (0.0-4.0); Hematocrit 36.1 % (39.0-51.0); Hemoglobin 11.7 gm/dL (13.0-17.0); Lymph # (Auto) 0.4 th/mm3 (1.0-4.8); Mean Corpuscular HGB Conc 32.4 % (32.0-36.0); Mean Corpuscular Volume 92.5 fL (80.0-100.0); Mean Platelet Volume 7.8 fL (7.0-11.0); Mono # (Auto) 0.9 th/mm3 (0.0-0.9); Mono % (Auto) 10.9 % (0.0-8.0); Neut % (Auto) 80.7 % (16.0-70.0); Platelet Count 245 th/mm3 (150-450); White Blood Count 8.6 th/mm3 (4.0-11.0)
[2018-03-03 15:35] LABS: Potassium 4.1 meq/L (3.5-5.1)
[2018-03-03 15:38] LABS: Calcium 7.9 mg/dL (8.5-10.1); Carbon Dioxide 35.3 meq/L (21.0-32.0)
[2018-03-03 15:42] LABS: INR 2.2 Ratio; Prothrombin Time 21.8 sec (9.8-11.6)
--- NOTE | 2018-03-03 16:09 | P.PN ---
Subjective Interval history: ALERT NAD Physical Exam Vital signs: Vital Signs 03/02/18 19:25 03/02/18 20:00 03/03/18 00:00 Temperature 98.3 F 98.3 F Pulse Rate 85 85 99 H Respiratory Rate 24 27 H 18 Blood Pressure 107/61 140/73 Pulse Oximetry 94 L 95 03/03/18 04:00 03/03/18 07:08 03/03/18 08:00 Temperature 97.9 F 98.5 F Pulse Rate 89 83 90 Respiratory Rate 22 20 28 H Blood Pressure 144/78 H 132/66 Pulse Oximetry 96 95 03/03/18 09:00 03/03/18 11:00 03/03/18 12:00 Temperature 98.2 F Pulse Rate 86 86 80 Respiratory Rate 27 H 27 H 25 H Blood Pressure 130/81 127/63 111/62 Pulse Oximetry 95 95 03/03/18 13:32 Temperature Pulse Rate 70 Respiratory Rate 12 Blood Pressure Pulse Oximetry Intake & Output 03/02/18 03/03/18 03/03/18 18:59 06:59 18:59 Intake Total 1070 / 1070 120 / 120 580 / 580 Output Total 1900 / 1900 200 / 200 275 / 275 Balance -830 / -830 -80 / -80 305 / 305 Weight 92.7 kg Intake: IV 350 / 350 100 / 100 Azithromycin Inj 500 MG In NS 250 / 250 Inj 250 ML @ 250 mls/hr IV.SIG Q24H [facility] Rx#:[id number] Rocephin Inj 1,000 MG In NS Inj 100 / 100 100 / 100 100 ML @ 200 mls/hr IV.SIG Q24H [facility] Rx#:[id number] Oral 720 / 720 120 / 120 480 / 480 Output: Urine 1900 / 1900 200 / 200 275 / 275 Other: Date of Last Bowel Movement 03/02/18 03/03/18 03/03/18 # Bowel Movements 1 1 1 Narrative: GENERAL: Well-developed, well-nourished elderly male patient in [facility]. On supplemental O2 SKIN: Warm and dry. No rash. Left posterior healing wound on calf, clean dry and intact roughly 1 1/2 x 1 1/2 cm. Also has an anterior healing ulcer of the left ankle, roughly 1x1cm. HEAD: Normocephalic. Atraumatic. EYES: Pupils equal and round. No scleral icterus. No injection or drainage. ENT: No nasal bleeding or discharge. Mucous membranes pink and moist. NECK: Supple. Trachea midline. CARDIOVASCULAR: Irregularly irregular rhythm. No murmur appreciated. RESPIRATORY: No accessory muscle use. cta. Breath sounds equal bilaterally. GASTROINTESTINAL: Abdomen soft, non-tender, nondistended. Normoactive bowel sounds x4. MUSCULOSKELETAL: No obvious deformities. Extremities without clubbing, cyanosis. Bilateral lower extremity edema, trace, improved. NEUROLOGICAL: Awake and alert. No obvious cranial nerve deficits. Motor grossly within normal limits. 5/5 muscle strength in bilateral upper and lower extremities. Normal speech. PSYCHIATRIC: Appropriate mood and affect; insight and judgment normal. Results - Labs CBC & Chem 7: 03/03/18 15:09 03/03/18 15:09 Laboratory Results - last 24 hr 03/02/18 03/02/18 03/03/18 17:38 19:49 08:35 CBC w Diff WBC RBC Hgb Hct MCV MCH MCHC RDW Plt Count MPV Neut % (Auto) Lymph % (Auto) [place] % (Auto) Eos % (Auto) Baso % (Auto) Neut # (Auto) Lymph # (Auto) [place] # (Auto) Eos # (Auto) Baso # (Auto) WBC Differential Differential Comment PT INR Sodium Potassium Chloride Carbon Dioxide Anion Gap POC Glucose 118 H 140 H 129 H Random Glucose Calcium 03/03/18 03/03/18 03/03/18 11:48 15:09 15:09 CBC w Diff Auto diff final WBC 8.6 RBC 3.90 L Hgb 11.7 L Hct 36.1 L MCV 92.5 MCH 30.0 MCHC 32.4 RDW 16.0 Plt Count 245 MPV 7.8 Neut % (Auto) 80.7 H Lymph % (Auto) 5.0 L [place] % (Auto) 10.9 H Eos % (Auto) 0.1 Baso % (Auto) 3.3 H Neut # (Auto) 7.0 Lymph # (Auto) 0.4 L [place] # (Auto) 0.9 Eos # (Auto) 0.0 Baso # (Auto) 0.3 H WBC Differential . Differential Comment . PT 21.8 H D INR 2.2 Sodium Potassium Chloride Carbon Dioxide Anion Gap POC Glucose 125 H Random Glucose Calcium 12/16/18 15:09 CBC w Diff WBC RBC Hgb Hct MCV MCH MCHC RDW Plt Count MPV Neut % (Auto) Lymph % (Auto) [place] % (Auto) Eos % (Auto) Baso % (Auto) Neut # (Auto) Lymph # (Auto) [place] # (Auto) Eos # (Auto) Baso # (Auto) WBC Differential Differential Comment PT INR Sodium 136 Potassium 4.1 Chloride 96 L Carbon Dioxide 35.3 H Anion Gap 5 POC Glucose Random Glucose 150 H Calcium 7.9 L Microbiology 02/28/18 10:45 Blood - Peripheral Aerobic Blood Culture - Preliminary No growth in 3 days 02/28/18 10:45 Blood - Peripheral Anaerobic Blood Culture - Preliminary No growth in 3 days 02/28/18 10:15 Blood - Peripheral Aerobic Blood Culture - Preliminary No growth in 3 days 02/28/18 10:15 Blood - Peripheral Anaerobic Blood Culture - Preliminary No growth in 3 days Assessment and Plan - Plan COPD EXACERBATION, IMPROVED CHF, RESPONDING WELL TO DIURETICS RESPIRATORY FAILURE ON O2 PLAN O2 NEEDED BRONCHODILATOR THERAPY THERAPY FOR CHF INCREASE ACTIVITY
--- NOTE | 2018-03-03 16:16 | P.PNCA ---
Subjective Interval history: Pt more alert this am, denies complaints while stationary Medications and Allergies Active Medications: Active Medications Acetaminophen (Tylenol) 650 mg PO Q4H PRN PRN Reason: Temp > 100.4 Al Hydroxide/Mg Hydroxide (Milk Of Magnesia Liq) 30 ml PO Q12H PRN PRN Reason: Mild Constipation Albuterol (Duoneb Neb (Prn)) 1 ampul NEB Q2HR NEB PRN PRN Reason: SHORTNESS OF BREATH/WHEEZING Albuterol (Duoneb Neb (Luiza)) 1 ampul NEB Q6HR WHILE AWAKE NEB [facility] Last Admin: 03/03/18 13:30 Dose: 1 ampul Amoxicillin/Clavulanate Potassium (Augmentin 875/125 Mg) 1 tab PO Q12HR [facility] Atorvastatin Calcium (Lipitor) 80 mg PO DAILY [facility] Last Admin: 03/03/18 10:32 Dose: 80 mg Bisacodyl (Dulcolax Supp) 10 mg RECTAL DAILY PRN PRN Reason: SEVERE CONSITIPATION Clonazepam (Klonopin) 1 mg PO DAILY [facility] Last Admin: 03/03/18 10:33 Dose: 1 mg Clopidogrel Bisulfate (Plavix) 75 mg PO DAILY [facility] Last Admin: 03/03/18 10:32 Dose: 75 mg Ferrous Sulfate (Ferosul) 325 mg PO DAILY [facility] Last Admin: 03/03/18 10:32 Dose: 325 mg Fluoxetine HCl (Prozac) 20 mg PO DAILY [facility] Last Admin: 03/03/18 10:33 Dose: 20 mg Fluticasone/Vilanterol (Breo Ellipta 100/25 Mcg Inh) 1 puff INH DAILY PRN PRN Reason: short of breath Furosemide (Lasix Inj) 40 mg IV.PUSH DAILY [facility] Last Admin: 03/03/18 09:00 Dose: 40 mg Guaifenesin (Mucinex Er) 600 mg PO BID [facility] Last Admin: 03/03/18 10:32 Dose: 600 mg Diltiazem HCl 125 mg/ Sodium (Chloride) 125 mls @ 5 mls/hr IV.CONT TITRATE PRN ; Protocol PRN Reason: Per Protocol Lactulose (Lactulose Liq) 30 ml PO DAILY PRN PRN Reason: SEVERE CONSITIPATION Levothyroxine Sodium (Synthroid) 50 mcg PO DAILY@0600 [facility] Last Admin: 03/03/18 05:34 Dose: 50 mcg Losartan Potassium (Cozaar) 100 mg PO DAILY [facility] Last Admin: 03/03/18 10:32 Dose: 100 mg Methylprednisolone Sodium Succinate (Solumedrol Inj) 40 mg IV.PUSH BID [facility] Metoprolol Tartrate (Lopressor) 75 mg PO BID [facility] Last Admin: 03/03/18 10:32 Dose: 75 mg Ondansetron HCl (Zofran Inj) 4 mg IV.PUSH Q6H PRN PRN Reason: NAUSEA OR VOMITING Sennosides (Senokot) 17.2 mg PO Q12H PRN PRN Reason: Moderate Constipation Sodium Chloride (Ns Flush) 2 ml IV.FLUSH BID [facility] Last Admin: 03/03/18 10:33 Dose: 2 ml Sodium Chloride (Ns Flush) 2 ml IV.FLUSH PRN PRN PRN Reason: FLUSH AFTER USING IV ACCESS Allergies Allergy/AdvReac Type Severity Reaction Status Date / Time Sulfa (Sulfonamide Allergy Rash Verified 02/28/18 10:06 Antibiotics) tetracycline Allergy Abdominal Verified 02/28/18 10:06 Pain Home Medications Medication Instructions Recorded Confirmed Type albuterol sulfate 2.5 mg INHALATION TID 11/21/17 02/28/18 History atorvastatin [Lipitor] 80 mg PO DAILY 11/21/17 02/28/18 History clonazepam 1 mg PO DAILY 11/21/17 02/28/18 History clopidogrel [Plavix] 75 mg PO DAILY 11/21/17 02/28/18 History fluoxetine 20 mg PO DAILY 11/21/17 02/28/18 History furosemide 20 mg PO DAILY PRN 11/21/17 02/28/18 History levothyroxine 50 mcg PO DAILY 11/21/17 02/28/18 History losartan 100 mg PO DAILY 11/21/17 02/28/18 History warfarin [Coumadin] 5 mg PO DAILY 11/21/17 02/28/18 History fluticasone-vilanterol [Breo 1 inh INHALATION DAILY PRN 01/09/18 02/28/18 History Ellipta] metoprolol tartrate 75 mg PO BID 01/09/18 02/28/18 History montelukast 10 mg PO QPM 01/09/18 02/28/18 History omeprazole 20 mg PO DAILY 01/09/18 02/28/18 History Physical Exam Vital signs: Vital Signs 03/02/18 19:25 03/02/18 20:00 03/03/18 00:00 Temperature 98.3 F 98.3 F Pulse Rate 85 85 99 H Respiratory Rate 24 27 H 18 Blood Pressure 107/61 140/73 Pulse Oximetry 94 L 95 03/03/18 04:00 03/03/18 07:08 03/03/18 08:00 Temperature 97.9 F 98.5 F Pulse Rate 89 83 90 Respiratory Rate 22 20 28 H Blood Pressure 144/78 H 132/66 Pulse Oximetry 96 95 03/03/18 09:00 03/03/18 11:00 03/03/18 12:00 Temperature 98.2 F Pulse Rate 86 86 80 Respiratory Rate 27 H 27 H 25 H Blood Pressure 130/81 127/63 111/62 Pulse Oximetry 95 95 03/03/18 13:32 Temperature Pulse Rate 70 Respiratory Rate 12 Blood Pressure Pulse Oximetry Intake & Output 03/02/18 03/03/18 03/03/18 18:59 06:59 18:59 Intake Total 1070 / 1070 120 / 120 580 / 580 Output Total 1900 / 1900 200 / 200 275 / 275 Balance -830 / -830 -80 / -80 305 / 305 Weight 92.7 kg Intake: IV 350 / 350 100 / 100 Azithromycin Inj 500 MG In NS 250 / 250 Inj 250 ML @ 250 mls/hr IV.SIG Q24H [facility] Rx#:[id number] Rocephin Inj 1,000 MG In NS Inj 100 / 100 100 / 100 100 ML @ 200 mls/hr IV.SIG Q24H [facility]UIZA Rx#:[id number] Oral 720 / 720 120 / 120 480 / 480 Output: Urine 1900 / 1900 200 / 200 275 / 275 Other: Date of Last Bowel Movement 03/02/18 03/03/18 03/03/18 # Bowel Movements 1 1 1 - Constitutional no acute distress - Routine HEENT Exam Head: Present: normocephalic, tenderness of temporal artery ENT: Present: mucous membranes moist - Routine Neck Exam Absent: JVD - Routine Respiratory Exam Present: CTA bilaterally - Routine Cardiovascular Exam Present: irregularly irregular. Absent: murmur - Routine Abdominal Exam Present: soft - Routine Extremities Exam Absent: edema Results 03/03/18 15:09 03/03/18 15:09 Coagulation 03/02/18 03/03/18 Range/Units 08:20 15:09 PT 38.0 H D 21.8 H D (9.8-11.6) sec CBC 03/03/18 Range/Units 15:09 WBC 8.6 (4.0-11.0) th/mm3 RBC 3.90 L (4.50-5.90) mil/mm3 Hgb 11.7 L (13.0-17.0) gm/dL Hct 36.1 L (39.0-51.0) % Plt Count 245 (150-450) th/mm3 Neut # (Auto) 7.0 (1.8-7.7) th/mm3 Lymph # (Auto) 0.4 L (1.0-4.8) th/mm3 [place] # (Auto) 0.9 (0.0-0.9) th/mm3 Eos # (Auto) 0.0 (0.0-0.4) th/mm3 Baso # (Auto) 0.3 H (0.0-0.2) th/mm3 Comprehensive Metabolic Panel 03/03/18 Range/Units 15:09 Sodium 136 (136-145) meq/L Potassium 4.1 (3.5-5.1) meq/L Chloride 96 L (98-107) meq/L Carbon Dioxide 35.3 H (21.0-32.0) meq/L Calcium 7.9 L (8.5-10.1) mg/dL Intake and Output 03/03/18 03/03/18 03/03/18 06:59 14:59 22:59 Intake Total 120 / 120 580 / 580 Output Total 200 / 200 275 / 275 Balance -80 / -80 305 / 305 Intake: IV 100 / 100 Rocephin Inj 1,000 MG In NS Inj 100 / 100 100 ML @ 200 mls/hr IV.SIG Q24H LUIZA Rx#:[id number] Oral 120 / 120 480 / 480 Output: Urine 200 / 200 275 / 275 Other: Date of Last Bowel Movement 03/03/18 03/03/18 # Bowel Movements 1 1 Weight 92.7 kg Assessment and Plan - Assessment (1) Cardiomyopathy Code(s): I42.9 - Cardiomyopathy, unspecified Status: Acute Plan: LVEF 30-35%; on arb/bb; pt agreeing to hospice (2) Aortic stenosis Code(s): I35.0 - Nonrheumatic aortic (valve) stenosis Status: Acute Plan: s/p tavr (3) CHF exacerbation Code(s): I50.9 - Heart failure, unspecified Status: Acute Plan: seems reasonably compensated, will change to PO lasix (4) Afib Code(s): I48.91 - Unspecified atrial fibrillation Status: Acute Plan: on warfarin, currently rate controlled. - Plan Pt clinically stable though long-term prognosis poor, he agrees to hospice and they are speaking with him now. Will sign off at this time, please call with questions
[2018-03-03] MEDS ORDERED: Warfarin Consult Pharmacy OTHER PRN (16:40)
[2018-03-03 20:54] VITALS: RESP 20
[2018-03-03] MEDS: Amoxicillin/Clavulanate 875/125 MG Tablet PO SCH (20:56)
[2018-03-04] MEDS: Levothyroxine 50 MCG Tablet PO SCH (05:51)
[2018-03-04 06:10] LABS: INR 1.7 Ratio; Prothrombin Time 17.6 sec (9.8-11.6)
--- NOTE | 2018-03-04 08:21 | P.DS ---
Date of admission: 02/28/18 12:04 Primary care physician: Renae Olmstead MD Anticipated date of discharge: 03/04/18 Brief History from admission: This is an 82-year-old male patient with a known medical history of COPD, hypertension, hyperlipidemia, hypothyroidism, CAD with history of cardiac stent placement and CABG as well as atrial fibrillation on Coumadin who presented to the ED with complaints of worsening shortness of breath and cough. Patient states that he has had worsening shortness of breath of the past couple weeks as well as over the last several months. He states that the shortness of breath worsens especially with exertion. It should be noted that he does use home oxygen 3 L nasal cannula at baseline. He does see Dr. Kelly, pulmonology, states he saw him this morning was sent over to the ED for evaluation. Patient was recently prescribed a prednisone Dosepak which he completed as well as antibiotic azithromycin, although patient did not fill azithromycin prescription. Since completed the prednisone patient's symptoms have continued without improvement. On exam patient is on 3 L nasal cannula, lying comfortably in bed, at bedside. BNP 804 on presentation. INR 6.5. Chest x-ray showing cardiomegaly with interstitial prominence and scattered airspace disease. It should be noted that patient has had over 6 hospitalizations in the last 3 months. He has been alternating between [facility] and [place]. His last hospitalization was 6 weeks ago at for COPD exacerbation. Patient underwent a TAVR and pacemaker placement in November of this year, and states that he has not had any follow-up with Dr. Cardenas since then. Patient's kerrick kleaner operator is Dr. Harvey, last seen 2 weeks ago without any changes to his medications. Patient update on day of discharge: Follow-up COPD exacerbation and CHF exacerbation. Patient sitting in chair comfortably no apparent distress. Eating well without any vomiting, nausea or vomiting. Denies any chest pain or shortness of breath. Much improved. Will discharge home with hospice today. Case management assisting with [facility] arrangements for home. DS: Diagnosis - Discharge Diagnosis (1) COPD with exacerbation Status: Acute (2) CHF exacerbation Status: Acute DS: Medications - Discharge Medications Prescriptions: amoxicillin-pot clavulanate 1 tab PO Q12HR 5 Days tab furosemide 40 mg PO DAILY PRN 30 Days tab PRN Reason: water retention guaifenesin [Mucinex] 600 mg PO BID 5 Days #10 tab potassium chloride 8 meq PO DAILY 30 Days #30 cap prednisone 20 mg PO DAILY #5 tab DS: Summary Hospital Course: This is an 82-year-old male patient with COPD exacerbation and acute on chronic respiratory insufficiency. Patient presents with a 2-month complaint of shortness of breath especially with exertion. Chest x-ray reviewed showing cardiomegaly with interstitial prominence scattered airspace disease. At baseline patient uses 3 L nasal cannula. Sees Dr. Kelly, pulmonary, who has been consulted. Angelita henderson scheduled and as needed for shortness of breath and wheezing. Methylprednisone IV scheduled. Wean to PO. Continue on Mucinex. Was started on azithromycin IV and Ceftriaxone. Change to p.o. CBC, BMP and UA all reviewed and essentially unremarkable. Supplemental O2 as needed, keep saturations above 92%. CHF, systolic, in exacerbation. Also presented with bilateral lower extremity edema. BNP 804 presentation. He takes Lasix 40 mg at home. Does present with bilateral lower extremity swelling which has improved. Will continue Lasix 40 mg PO daily. Diuresing well. ECHO showing EF 35%. trace mitral and aortic valve regurgitation. Pulmonary atrial pressure 71. Cardiology consulted, follows with Dr. Harvey, appreciate input and recommendations. Spoke to and patient, requesting hospice. Patient has a history of atrial fibrillation in RVR, resolved. Atrial fibrillation on anticoagulation on Coumadin at home, continued. Patient presented with INR of 6.5. Continue on Coumadin. PCP to follow. Has a history of CAD history with CABG and cardiac stents Hypertension, chronic. Recent TAVR in November. Will continue home medications including Plavix. Has a history of hypothyroidism, chronic, will continue home levothyroxine. Hospice has been consulted. Patient and requesting [facility]. CM assisting to meet with patient at discharge. Stable to go home with hospice. RX as written. Diet as tolerated. Activity as tolerated. - Time Spent with Patient Total time spent providing and/or coordinating discharge services: Greater than 30 minutes - Quality: VTE Deep Vein Thrombosis/Pulmonary Embolism Present on Admission: No Exam Vital signs: Vital Signs 03/03/18 09:00 03/03/18 11:00 03/03/18 12:00 Temperature 98.2 F Pulse Rate 86 86 80 Respiratory Rate 27 H 27 H 25 H Blood Pressure 130/81 127/63 111/62 Pulse Oximetry 95 95 03/03/18 13:32 03/03/18 16:00 03/03/18 17:28 Temperature Pulse Rate 70 83 Respiratory Rate 03 06 18 Blood Pressure 121/59 L Pulse Oximetry 94 L 03/03/18 19:47 03/03/18 20:00 03/04/18 00:00 Temperature 96.9 F L 96.1 F L Pulse Rate 75 76 75 Respiratory Rate 18 20 20 Blood Pressure 136/68 142/68 H Pulse Oximetry 98 99 98 03/04/18 07:38 Temperature Pulse Rate 75 Respiratory Rate 20 Blood Pressure Pulse Oximetry 98 Intake & Output 03/03/18 03/04/18 03/04/18 18:59 06:59 18:59 Intake Total 580 / 580 240 / 240 Output Total 400 / 400 700 / 700 Balance 180 / 180 -460 / -460 Weight 92.7 kg Intake: IV 100 / 100 Rocephin Inj 1,000 MG In NS Inj 100 / 100 100 ML @ 200 mls/hr IV.SIG Q24H [facility] Rx#:[id number] Oral 480 / 480 240 / 240 Output: Urine 400 / 400 700 / 700 Other: Date of Last Bowel Movement 03/03/18 # Bowel Movements 1 Narrative: GENERAL: Well-developed, well-nourished elderly male patient in [facility]. On supplemental O2 SKIN: Warm and dry. No rash. Left posterior healing wound on calf, clean dry and intact roughly 1 1/2 x 1 1/2 cm. Also has an anterior healing ulcer of the left ankle, roughly 1x1cm. HEAD: Normocephalic. Atraumatic. EYES: Pupils equal and round. No scleral icterus. No injection or drainage. ENT: No nasal bleeding or discharge. Mucous membranes pink and moist. NECK: Supple. Trachea midline. CARDIOVASCULAR: Irregularly irregular rhythm. No murmur appreciated. RESPIRATORY: No accessory muscle use. cta. Breath sounds equal bilaterally. GASTROINTESTINAL: Abdomen soft, non-tender, nondistended. Normoactive bowel sounds x4. MUSCULOSKELETAL: No obvious deformities. Extremities without clubbing, cyanosis. Bilateral lower extremity edema, trace, improved. NEUROLOGICAL: Awake and alert. No obvious cranial nerve deficits. Motor grossly within normal limits. 5/5 muscle strength in bilateral upper and lower extremities. Normal speech. PSYCHIATRIC: Appropriate mood and affect; insight and judgment normal. Results Procedures completed during hospitalization: See above. Labs on day of discharge: Labs from last 24 hours 03/04/18 03/03/18 03/03/18 04:53 21:26 16:28 CBC w Diff WBC RBC Hgb Hct MCV MCH MCHC RDW Plt Count MPV Neut % (Auto) Lymph % (Auto) [place] % (Auto) Eos % (Auto) Baso % (Auto) Neut # (Auto) Lymph # (Auto) [place] # (Auto) Eos # (Auto) Baso # (Auto) WBC Differential Differential Comment PT 17.6 H INR 1.7 Sodium Potassium Chloride Carbon Dioxide Anion Gap BUN Creatinine Estimated GFR POC Glucose 122 H 141 H Random Glucose Calcium 03/03/18 03/03/18 03/03/18 15:09 15:09 15:09 CBC w Diff Auto diff final WBC 8.6 RBC 3.90 L Hgb 11.7 L Hct 36.1 L MCV 92.5 MCH 30.0 MCHC 32.4 RDW 16.0 Plt Count 245 MPV 7.8 Neut % (Auto) 80.7 H Lymph % (Auto) 5.0 L [place] % (Auto) 10.9 H Eos % (Auto) 0.1 Baso % (Auto) 3.3 H Neut # (Auto) 7.0 Lymph # (Auto) 0.4 L [place] # (Auto) 0.9 Eos # (Auto) 0.0 Baso # (Auto) 0.3 H WBC Differential . Differential Comment . PT 21.8 H D INR 2.2 Sodium 136 Potassium 4.1 Chloride 96 L Carbon Dioxide 35.3 H Anion Gap 5 BUN 31 H Creatinine 0.93 Estimated GFR 77 L POC Glucose Random Glucose 150 H Calcium 7.9 L 03/03/18 03/03/18 11:48 08:35 CBC w Diff WBC RBC Hgb Hct MCV MCH MCHC RDW Plt Count MPV Neut % (Auto) Lymph % (Auto) [place] % (Auto) Eos % (Auto) Baso % (Auto) Neut # (Auto) Lymph # (Auto) [place] # (Auto) Eos # (Auto) Baso # (Auto) WBC Differential Differential Comment PT INR Sodium Potassium Chloride Carbon Dioxide Anion Gap BUN Creatinine Estimated GFR POC Glucose 125 H 129 H Random Glucose Calcium Preliminary micro results at discharge 02/28/18 10:45 Aerobic Blood Culture - Preliminary Blood - Peripheral No growth in 3 days Anaerobic Blood Culture - Preliminary No growth in 3 days 02/28/18 10:15 Aerobic Blood Culture - Preliminary Blood - Peripheral No growth in 3 days Anaerobic Blood Culture - Preliminary No growth in 3 days - Impressions ITS Impressions Chest X-Ray 02/28/18 10:25 CONCLUSION: Hypoaerated lungs with persistent interstitial prominence and mild scattered airspace disease. Discharge Plan - Discharge Disposition Patient Disposition: /Home Health Service - Discharge Condition Condition: Fair - Discharge Order Discharge Orders: Discharge Order (Routine); Ordered 03/04/18 Ordered By: Carmencita Whitt - Discharge Details Anticipated Discharge Date: 02/28/18 Discharge Comment: [facility] see patient. - Physicians Team Primary Care Provider: Renae Olmstead Attending Provider: Ned Baeza Other Providers: Robin Kelly MD ; [employer]urance ; Alexis Hernandez MD ; Song Gaona MD
[2018-03-04] MEDS: MethylPREDNISolone Sod Succinate Inj 40 MG/ML Vial IV.PUSH SCH (08:32)
[2018-03-04] MEDS: Amoxicillin/Clavulanate 875/125 MG Tablet PO SCH (08:33)
[2018-03-04] MEDS: FLUoxetine 20 MG Capsule PO SCH (08:33)
[2018-03-04] MEDS: guaiFENesin 600 MG ER Tablet PO SCH (08:33)
[2018-03-04] MEDS: clonazePAM 1 MG Tablet PO SCH (08:34)
[2018-03-04] MEDS: Ferrous Sulfate 325 MG Tablet PO SCH (08:34)
[2018-03-04] MEDS: Metoprolol Tartrate 50 MG Tablet PO SCH (08:34)
[2018-03-04] MEDS ORDERED: Furosemide 40 MG Tablet PO SCH (09:00)
[2018-03-04 13:14] VITALS: BP 116/72; TEMP 97.8; O2SAT 96
[2018-03-04 15:05] VITALS: PULSE 75
--- NOTE | 2018-03-04 15:46 | P.PN ---
Subjective Interval history: alert no sob in good spirits up in chair Physical Exam Vital signs: Vital Signs 03/03/18 16:00 03/03/18 17:28 03/03/18 19:47 Temperature Pulse Rate 83 75 Respiratory Rate 19 18 18 Blood Pressure 121/59 L Pulse Oximetry 94 L 98 03/03/18 20:00 03/04/18 00:00 03/04/18 07:38 Temperature 96.9 F L 96.1 F L Pulse Rate 76 75 75 Respiratory Rate 20 20 20 Blood Pressure 136/68 142/68 H Pulse Oximetry 99 98 98 03/04/18 08:00 03/04/18 12:00 03/04/18 15:05 Temperature 98.2 F 97.8 F Pulse Rate 75 80 75 Respiratory Rate 20 20 20 Blood Pressure 145/79 H 116/72 Pulse Oximetry 98 96 Intake & Output 03/03/18 03/04/18 03/04/18 18:59 06:59 18:59 Intake Total 580 / 580 240 / 240 360 / 360 Output Total 400 / 400 700 / 700 400 / 400 Balance 180 / 180 -460 / -460 -40 / -40 Weight 92.7 kg Intake: IV 100 / 100 Rocephin Inj 1,000 MG In NS Inj 100 / 100 100 ML @ 200 mls/hr IV.SIG Q24H BECKY Rx#:[id number] Oral 480 / 480 240 / 240 360 / 360 Output: Urine 400 / 400 700 / 700 400 / 400 Other: Date of Last Bowel Movement 03/03/18 03/03/18 # Bowel Movements 1 Narrative: GENERAL: Well-developed, well-nourished elderly male patient in [facility]. On supplemental O2 SKIN: Warm and dry. No rash. Left posterior healing wound on calf, clean dry and intact roughly 1 1/2 x 1 1/2 cm. Also has an anterior healing ulcer of the left ankle, roughly 1x1cm. HEAD: Normocephalic. Atraumatic. EYES: Pupils equal and round. No scleral icterus. No injection or drainage. ENT: No nasal bleeding or discharge. Mucous membranes pink and moist. NECK: Supple. Trachea midline. CARDIOVASCULAR: Irregularly irregular rhythm. No murmur appreciated. RESPIRATORY: No accessory muscle use. cta. Breath sounds equal bilaterally. GASTROINTESTINAL: Abdomen soft, non-tender, nondistended. Normoactive bowel sounds x4. MUSCULOSKELETAL: No obvious deformities. Extremities without clubbing, cyanosis. Bilateral lower extremity edema, trace, improved. NEUROLOGICAL: Awake and alert. No obvious cranial nerve deficits. Motor grossly within normal limits. 5/5 muscle strength in bilateral upper and lower extremities. Normal speech. PSYCHIATRIC: Appropriate mood and affect; insight and judgment normal. Results - Labs CBC & Chem 7: 03/03/18 15:09 03/03/18 15:09 Laboratory Results - last 24 hr 03/03/18 03/03/18 03/03/18 15:09 15:09 16:28 PT 21.8 H D INR 2.2 BUN 31 H Creatinine 0.93 Estimated GFR 77 L POC Glucose 141 H 03/03/18 03/04/18 21:26 04:53 PT 17.6 H INR 1.7 BUN Creatinine Estimated GFR POC Glucose 122 H Microbiology 02/28/18 10:45 Blood - Peripheral Aerobic Blood Culture - Preliminary No growth in 4 days 02/28/18 10:45 Blood - Peripheral Anaerobic Blood Culture - Preliminary No growth in 4 days 02/28/18 10:15 Blood - Peripheral Aerobic Blood Culture - Preliminary No growth in 4 days 02/28/18 10:15 Blood - Peripheral Anaerobic Blood Culture - Preliminary No growth in 4 days - Procedures See above. Assessment and Plan - Plan COPD EXACERBATION, IMPROVED CHF, RESPONDING WELL TO DIURETICS RESPIRATORY FAILURE ON O2 PLAN O2 NEEDED BRONCHODILATOR THERAPY THERAPY FOR CHF INCREASE ACTIVITY home today office 1 week
== END 2018-03-04 19:30 | disposition hospice, home (50) | DRG 291 ==
LOC: PHED 10:03 → PHEDA 12:04 → PH3 13:28 → PHICU 03-01 08:37 → PH3 03-03 14:03
PROVIDERS: ADMIT Hospitalist; ATTEND Hospitalist
CPT/HCPCS: 36600; 71010; 71045; 80048; 80053; 81001; 82805; 82948; 82962; 83520; 83735; 83880; 84443; 84484; 85025; 85610; 85730; 87040; 87275; 87276; 87804; 90774; 93005; 93306; 94640; 94664; 94665; 96374; 97110; 97116; 97162; 99285; C8952; J0456; J0696; J1940; J2920; J7050